=== PATIENT | female | born 1945 ===

== ENCOUNTER 2024-10-05 18:09 | Emergency (ER) | payer MEDICARE, SELFPAY ==
--- OUTSIDE RECORDS SUMMARY | 2024-10-05 18:13 | XMS_ITS | Encounter Summary ---
Author Organization [facility] Address [address] [place] [address] Care Team Providers Care Dot Net Architect Name Role Phone Jhonathan iKm MD Primary Care Provider Encounter Details Date Type Department Care Team (Late st Contact Info) Description 06/06/2007 Outpatient Historical [facility] [place] Internal Medicine [place] [address] [place] [address] Jhonathan Rendon MD [address] [place] [address] Social History Tobacco Use Types Packs/Day Years Used Date Smoking Tobacco: Never Assessed Comments No Sex and Gender Information Value Date Recorded Sex Assigned at Not on file Legal Sex Female 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
--- OUTSIDE RECORDS SUMMARY | 2024-10-05 18:13 | XMS_ITS | Encounter Summary ---
Author Organization [facility] Address [address] [place] [address] Care Team Providers Care Fagot Heater Name Role Phone Jhonathan Kim MD Primary Care Provider Encounter Details Date Type Department Care Team (Latest Contact Info) Description 06/14/2006 Outpatient [facility] - [facility] [address] [place] [phone] Jhonathan Rendon MD [address] [place] [address] Unspecified Venous (Peripheral) Insufficiency (Primary Dx) Social History Tobacco Use Types Packs/Day Years Used Date Smoking Tobacco: Never Assessed Comments Unknown Sex and Gender Information Value Date Recorded Sex Assigned at Not on file Legal Sex Female 3:30 AM TOBACCO SHAKER Gender Identity Not on file Sexual Orientation Not on file documented as of this encounter Plan of Treatment Not on file documented as of this encounter Visit Diagnoses Diagnosis Unspecified venous (peripheral) insufficiency- Primary documented in this encounter Additional Health Concerns Infection Onset Date Last Indicated Resolved Time R/O Respiratory 05/13/2024 05/13/2024 05/13/2024 3 :49 AM CDT documented as of this encounter Care Teams Fagot Heater Relationship Specialty [place] [address] [place] [id number] PCP - General Internal Medicine 02/18/17 07/02/24 documented as of this encounter
--- OUTSIDE RECORDS SUMMARY | 2024-10-05 18:13 | XMS_ITS | Encounter Summary ---
Author Organization [facility] Address [address] [place] [address] Care Team Providers Care Clinic Physician Director Name Role Phone Jhonathan Kim MD Primary Care Provider Encounter Details Date Type Department Care Team (Late st Contact Info) Description 07/13/1999 Outpatient Historical [facility] Internal Medicine [place] [address] [place] [address] Jhonathan Rendon MD [address] [place] [address] Social History Tobacco Use Types Packs/Day Years Used Date Smoking Tobacco: Never Assessed Comments Unknown Sex and Gender Information Value Date Recorded Sex Assigned at Not on file Legal Sex Female 3:30 AM BUN ICER Gender Identity Not on file Sexual Orientation Not on file documented as of this encounter Plan of Treatment Not on file documented as of this encounter Visit Diagnoses Not on filedocumented in this encounter Additional Health Concerns Infection Onset Date Last Indicated Resolved Time R/O Respiratory 05/13/2024 05/13/2024 05/13/2024 3 :49 AM CDT documented as of this encounter Care Teams Clinic Physician Director Relationship Specialty [place] [address] [place] [address] PCP - General Internal Medicine 02/18/17 07/02/24 documented as of this encounter
--- OUTSIDE RECORDS SUMMARY | 2024-10-05 18:13 | XMS_ITS | Encounter Summary ---
Author Organization [facility] Address [address] [place] [address] Care Team Providers Care Director Physical Therapy Name Role Phone Jhonathan Kim MD Primary Care Provider Encounter Details Date Type Department Care Team (Late st Contact Info) Description 07/03/2001 Outpatient Historical [facility] Internal Medicine [place] [address] [place] [address] Jhonathan Rendon MD [address] [place] [address] Social History Tobacco Use Types Packs/Day Years Used Date Smoking Tobacco: Never Assessed Comments Unknown Sex and Gender Information Value Date Recorded Sex Assigned at Not on file Legal Sex Female 3:30 AM DIRECTOR REGULATORY 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 Gender Identity Not on file Sexual Orientation Not on file documented as of this encounter Plan of Treatment Not on file documented as of this encounter Visit Diagnoses Not on filedocumented in this encounter Additional Health Concerns Infection Onset Date Last Indicated Resolved Time R/O Respiratory 05/13/2024 05/13/2024 05/13/2024 3 :49 AM CDT documented as of this encounter Care Teams Director Physical Therapy Relationship Specialty [place] [address] [place] [address] PCP - General Internal Medicine 02/18/17 07/02/24 documented as of this encounter
--- OUTSIDE RECORDS SUMMARY | 2024-10-05 18:13 | XMS_ITS | Encounter Summary ---
Author Organization [facility] Address [address] [place] [address] Care Team Providers Care Direct Support Staff Member Name Role Phone Jhonathan Kim MD Primary Care Provider Encounter Details Date Type Department Care Team (Late st Contact Info) Description 04/13/2006 Outpatient Historical [facility] Internal Medicine [place] [address] [place] [address] Jhonathan Rendon MD [address] [place] [address] Social History Tobacco Use Types Packs/Day Years Used Date Smoking Tobacco: Never Assessed Comments Unknown Sex and Gender Information Value Date Recorded Sex Assigned at Not on file Legal Sex Female 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 Gender Identity Not on file Sexual Orientation Not on file documented as of this encounter Plan of Treatment Not on file documented as of this encounter Visit Diagnoses Not on filedocumented in this encounter Additional Health Concerns Infection Onset Date Last Indicated Resolved Time R/O Respiratory 05/13/2024 05/13/2024 05/13/2024 3 :49 AM CDT documented as of this encounter Care Teams Direct Support Staff Member Relationship Specialty [place] [address] [address] [place] [address] PCP - General Internal Medicine 02/18/17 07/02/24 documented as of this encounter
--- OUTSIDE RECORDS SUMMARY | 2024-10-05 18:13 | XMS_ITS | Encounter Summary ---
Author Organization [facility] Address [address] [place] [address] Care Team Providers Care Parole Agent Name Role Phone Jhonathan Kim MD Primary Care Provider Encounter Details Date Type Department Care Team (Late st Contact Info) Description 04/13/2006 Outpatient Historical [facility] Internal Medicine [place] [address] [place] [address] Jhonathan Rendon MD [address] [place] [address] Social History Tobacco Use Types Packs/Day Years Used Date Smoking Tobacco: Never Assessed Comments Unknown Sex and Gender Information Value Date Recorded Sex Assigned at Not on file Legal Sex Female 3:30 AM 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 SHRIMP BOAT Gender Identity Not on file Sexual Orientation Not on file documented as of this encounter Plan of Treatment Not on file documented as of this encounter Visit Diagnoses Not on filedocumented in this encounter Additional Health Concerns Infection Onset Date Last Indicated Resolved Time R/O Respiratory 05/13/2024 05/13/2024 05/13/2024 3 :49 AM CDT documented as of this encounter Care Teams Parole Agent Relationship Specialty [place] [address] [place] [address] PCP - General Internal Medicine 02/18/17 07/02/24 documented as of this encounter
--- OUTSIDE RECORDS SUMMARY | 2024-10-05 18:13 | XMS_ITS | Encounter Summary ---
Author Organization [facility] Address [address] [place] [address] Care Team Providers Care Eye Physician Name Role Phone Jhonathan Kim MD Primary Care Provider Encounter Details Date Type Department Care Team (Late st Contact Info) Description 12/13/2001 Outpatient Historical [facility] [place] Internal Medicine [place] [address] [place] [address] Jhonathan Rendon MD [address] [place] [address] Social History Tobacco Use Types Packs/Day Years Used Date Smoking Tobacco: Never Assessed Comments Unknown Sex and Gender Information Value Date Recorded Sex Assigned at Not on file Legal Sex Female 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
--- OUTSIDE RECORDS SUMMARY | 2024-10-05 18:13 | XMS_ITS | Encounter Summary ---
Author Organization [facility] Address [address] [place] [address] Care Team Providers Care University Counselor Name Role Phone Jhonathan Kim MD Primary Care Provider Encounter Details Date Type Department Care Team (Late st Contact Info) Description 06/14/2006 Outpatient [facility] Hyper[facility]ic and W[facility] Treatment Center - [facility] [address] [place] [address] [place] [address] [place] [address] Social History Tobacco Use Types Packs/Day Years Used Date Smoking Tobacco: Never Assessed Comments Unknown Sex and Gender Information Value Date Recorded Sex Assigned at Not on file Legal Sex Female 3:30 AM 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 [place] [address] PCP - General Internal Medicine 02/18/17 07/02/24 documented as of this encounter
--- OUTSIDE RECORDS SUMMARY | 2024-10-05 18:13 | XMS_ITS | Encounter Summary ---
Author Organization [facility] Address [address] [place] [address] Care Team Providers Care Label Tacker Name Role Phone Jhonathan Kim MD Primary Care Provider Encounter Details Date Type Department Care Team (Late st Contact Info) Description 06/12/1999 Outpatient Historical [facility] Internal Medicine [place] [address] [place] [address] Jhonathan Rendon MD [address] [place] [address] Social History Tobacco Use Types Packs/Day Years Used Date Smoking Tobacco: Never Assessed Comments Unknown Sex and Gender Information Value Date Recorded Sex Assigned at Not on file Legal Sex Female 3: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
--- OUTSIDE RECORDS SUMMARY | 2024-10-05 18:13 | XMS_ITS | Encounter Summary ---
Author Organization [facility] Address [address] [place] [address] Care Team Providers Care Kettle Operator Name Role Phone Jhonathan Kim MD Primary Care Provider Reason for Visit * Reason Onset Date Comments Retirement (Skilled/Rehab) 05/25/2024 Encounter Details Date Type Department Care Team (Late st Contact Info) Description 05/25/2024 Telephone [facility] Urology [facility] [address] [facility] [address] [place] [address] [place] [address] [facility] [address] [place] [address] Retirement (Skilled/Rehab) Social History Tobacco Use Types Packs/Day Years Used Date Smoking Tobacco: Former Cigarettes 1.5 20 0 07/25/1977 - 07/25/1997 Smokeless Tobacco: Never Alcohol Use Standard Drinks/Week Comments No 0 (1 standard drink = 0.6 oz pure alcohol) recovering alcoholic, quit 1985 Financial Resource Strain Answer Date R ecorded How hard is it for you to pa y for the very basics like food, housing, medical care, and heating? Somewhat hard 12/16/2021 Food Insecurity Answer Date Recorded In the past 12 months, have you worried that your food would run out before you had money to buy more? Never true 12/16/2021 In the past 12 months, did y ou run out of food and didn't have money to buy more? Never true 12/16/2021 Transportation Needs Answer Date Record ed In the past 12 months, has l ack of transportation kept you from medical appointments or from getting medications? No 12/16/2021 Lack of Transportation (Non-Medical) Not on file 12/16/2021 Feeling Safe Answer Date Recorded Are you in a relationship wi th someone who hurts you emotionally and/or physically? 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 The nursing facility called and wanted to schedule an appointment. She has a surgery coming up. I didn't know if Dr Orona's wants to see herbefore her surgery or look at the chart and go from there. documented in this encounter Plan of Treatment Not on file documented as of this encounter Visit Diagnoses Not on filedocumented in this encounter Additional Health Concerns Assessment Noted Time PHQ-9 Depression Total Score: 2 04/25/20 11:43 AM CDT documented as of this encounter Care Teams Kettle Operator Relationship Specialty [place] [address] [place] [address] PCP - General Internal Medicine 02/18/17 07/02/24 documented as of this encounter
--- OUTSIDE RECORDS SUMMARY | 2024-10-05 18:13 | XMS_ITS | Encounter Summary ---
Author Organization [facility] Address [address] [place] [address] Care Team Providers Care Leaf Tinner Name Role Phone Jhonathan Kim MD Primary Care Provider Encounter Details Date Type Department Care Team (Late st Contact Info) Description 02/10/2001 Outpatient Historical [facility] Internal Medicine [place] [address] [place] [address] Jhonathan Rendon MD [address] [place] [address] Social History Tobacco Use Types Packs/Day Years Used Date Smoking Tobacco: Never Assessed Comments Unknown Sex and Gender Information Value Date Recorded Sex Assigned at Not on file Legal Sex Female 3:30 AM COBOL ENGINEER Gender Identity Not on file Sexual Orientation Not on file documented as of this encounter Plan of Treatment Not on file documented as of this encounter Visit Diagnoses Not on filedocumented in this encounter Additional Health Concerns Infection Onset Date Last Indicated Resolved Time R/O Respiratory 05/13/2024 05/13/2024 05/13/2024 3 :49 AM CDT documented as of this encounter Care Teams Leaf Tinner Relationship Specialty [place] [address] [place] [address] PCP - General Internal Medicine 02/18/17 07/02/24 documented as of this encounter
--- OUTSIDE RECORDS SUMMARY | 2024-10-05 18:13 | XMS_ITS | Encounter Summary ---
Author Organization [facility] Address [address] [place] [address] Care Team Providers Care Inspector Paper Products Name Role Phone Jhonathan Kim MD Primary Care Provider Encounter Details Date Type Department Care Team (Late st Contact Info) Description 12/25/1999 Outpatient Historical [facility] Internal Medicine [place] [address] [place] [address] Jhonathan Rendon MD [address] [place] [address] Social History Tobacco Use Types Packs/Day Years Used Date Smoking Tobacco: Never Assessed Comments Unknown Sex and Gender Information Value Date Recorded Sex Assigned at Not on file Legal Sex Female 3:30 AM UNION ORGANISER Gender Identity Not on file Sexual Orientation Not on file documented as of this encounter Plan of Treatment Not on file documented as of this encounter Visit Diagnoses Not on filedocumented in this encounter Additional Health Concerns Infection Onset Date Last Indicated Resolved Time R/O Respiratory 05/13/2024 05/13/2024 05/13/2024 3 :49 AM CDT documented as of this encounter Care Teams Inspector Paper Products Relationship Specialty [place] [address] [place] [address] PCP - General Internal Medicine 02/18/17 07/02/24 documented as of this encounter
--- OUTSIDE RECORDS SUMMARY | 2024-10-05 18:13 | XMS_ITS | Encounter Summary ---
Author Organization [facility] Address [address] [place] [address] Care Team Providers Care Dimensional Engineer Name Role Phone Jhonathan Kim MD Primary Care Provider Encounter Details Date Type Department Care Team (Late st Contact Info) Description 03/06/1999 Outpatient Historical [facility] Internal Medicine [place] [address] [place] [address] Jhonathan Rendon MD [address] [place] [address] Social History Tobacco Use Types Packs/Day Years Used Date Smoking Tobacco: Never Assessed Comments Unknown Sex and Gender Information Value Date Recorded Sex Assigned at Not on file Legal Sex Female 3:30 AM SYSTEM SPECIALIST Gender Identity Not on file Sexual Orientation Not on file documented as of this encounter Plan of Treatment Not on file documented as of this encounter Visit Diagnoses Not on filedocumented in this encounter Additional Health Concerns Infection Onset Date Last Indicated Resolved Time R/O Respiratory 05/13/2024 05/13/2024 05/13/2024 3 :49 AM CDT documented as of this encounter Care Teams Dimensional Engineer Relationship Specialty [place] [address] [place] [address] PCP - General Internal Medicine 02/18/17 07/02/24 documented as of this encounter
--- OUTSIDE RECORDS SUMMARY | 2024-10-05 18:13 | XMS_ITS | Encounter Summary ---
Author Organization [facility] Address [address] [place] [address] Care Team Providers Care Tile Installer Name Role Phone Jhonathan Kim MD Primary Care Provider Encounter Details Date Type Department Care Team (Late st Contact Info) Description 08/29/1998 Outpatient Historical [facility] Internal Medicine [place] [address] [place] [address] Jhonathan Rendon MD [address] [place] [address] Social History Tobacco Use Types Packs/Day Years Used Date Smoking Tobacco: Never Assessed Comments Unknown Sex and Gender Information Value Date Recorded Sex Assigned at Not on file Legal Sex Female 3: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
--- OUTSIDE RECORDS SUMMARY | 2024-10-05 18:13 | XMS_ITS | Encounter Summary ---
Author Organization [facility] Address [address] [place] [address] Care Team Providers Care Western Tack Assembly Line Worker Name Role Phone Jhonathan Kim MD Primary Care Provider Encounter Details Date Type Department Care Team (Late st Contact Info) Description 04/13/2005 Outpatient Historical [facility] Internal Medicine [place] [address] [place] [address] Jhonathan Rendon MD [address] [place] [address] Social History Tobacco Use Types Packs/Day Years Used Date Smoking Tobacco: Never Assessed Comments Unknown Sex and Gender Information Value Date Recorded Sex Assigned at Not on file Legal Sex Female 3:30 AM REFUGE MANAGER Gender Identity Not on file Sexual Orientation Not on file documented as of this encounter Plan of Treatment Not on file documented as of this encounter Visit Diagnoses Not on filedocumented in this encounter Additional Health Concerns Infection Onset Date Last Indicated Resolved Time R/O Respiratory 05/13/2024 05/13/2024 05/13/2024 3 :49 AM CDT documented as of this encounter Care Teams Western Tack Assembly Line Worker Relationship Specialty [place] [address] [place] [address] PCP - General Internal Medicine 02/18/17 07/02/24 documented as of this encounter
--- OUTSIDE RECORDS SUMMARY | 2024-10-05 18:13 | XMS_ITS | Encounter Summary ---
Author Organization [facility] Address [address] [place] [address] Care Team Providers Care Tractor Operator Laser Leveling Name Role Phone Jhonathan Kim MD Primary Care Provider Encounter Details Date Type Department Care Team (Late st Contact Info) Description 08/21/1999 Outpatient Historical [facility] Internal Medicine [place] [address] [place] [address] Jhonathan Rendon MD [address] [place] [address] Social History Tobacco Use Types Packs/Day Years Used Date Smoking Tobacco: Never Assessed Comments Unknown Sex and Gender Information Value Date Recorded Sex Assigned at Not on file Legal Sex Female 3:30 AM TREASURER 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 BANK Gender Identity Not on file Sexual Orientation Not on file documented as of this encounter Plan of Treatment Not on file documented as of this encounter Visit Diagnoses Not on filedocumented in this encounter Additional Health Concerns Infection Onset Date Last Indicated Resolved Time R/O Respiratory 05/13/2024 05/13/2024 05/13/2024 3 :49 AM CDT documented as of this encounter Care Teams Tractor Operator Laser Leveling Relationship Specialty [place] [address] [place] [address] PCP - General Internal Medicine 02/18/17 07/02/24 documented as of this encounter
--- OUTSIDE RECORDS SUMMARY | 2024-10-05 18:13 | XMS_ITS | Encounter Summary ---
Author Organization [facility] Address [address] [place] [address] Care Team Providers Care Structural Welder Name Role Phone Jhonathan Kim MD Primary Care Provider Encounter Details Date Type Department Care Team (Late st Contact Info) Description 04/25/2001 Outpatient Historical [facility] Internal Medicine [place] [address] [place] [address] Jhonathan Rendon MD [address] [place] [address] Social History Tobacco Use Types Packs/Day Years Used Date Smoking Tobacco: Never Assessed Comments Unknown Sex and Gender Information Value Date Recorded Sex Assigned at Not on file Legal Sex Female 3:30 AM RIB KNITTER Gender Identity Not on file Sexual Orientation Not on file documented as of this encounter Plan of Treatment Not on file documented as of this encounter Visit Diagnoses Not on filedocumented in this encounter Additional Health Concerns Infection Onset Date Last Indicated Resolved Time R/O Respiratory 05/13/2024 05/13/2024 05/13/2024 3 :49 AM CDT documented as of this encounter Care Teams Structural Welder Relationship Specialty [place] [address] [place] [address] PCP - General Internal Medicine 02/18/17 07/02/24 documented as of this encounter
--- OUTSIDE RECORDS SUMMARY | 2024-10-05 18:13 | XMS_ITS | Encounter Summary ---
Author Organization [facility] Address [address] [place] [address] Care Team Providers Care Storeroom Attendant Name Role Phone Jhonathan Kim MD Primary Care Provider Encounter Details Date Type Department Care Team (Latest Contact Info) Description 06/27/2006 Outpatient [facility] [address] [place] [address] Jhonathan Rendon MD [address] [place] [address] Unspecified Venous (Peripheral) Insufficiency (Primary Dx) Social History Tobacco Use Types Packs/Day Years Used Date Smoking Tobacco: Never Assessed Comments Unknown Sex and Gender Information Value Date Recorded Sex Assigned at Not on file Legal Sex Female 3:30 AM FARM 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
--- OUTSIDE RECORDS SUMMARY | 2024-10-05 18:13 | XMS_ITS | Encounter Summary ---
Author Organization [facility] Address [address] [place] [address] Care Team Providers Care Jailer/Training Officer Name Role Phone Jhonathan Kim MD Primary Care Provider Encounter Details Date Type Department Care Team (Late st Contact Info) Description 08/20/[address] [facility] Internal Medicine [place] [address] [place] [address] Jhonathan Rendon MD [address] [place] [address] Social History Tobacco Use Types Packs/Day Years Used Date Smoking Tobacco: Never Assessed Comments Unknown Sex and Gender Information Value Date Recorded Sex Assigned at Not on file Legal Sex Female 3:30 AM SUPERVISOR DRYING AND WINDING Gender Identity Not on file Sexual Orientation Not on file documented as of this encounter Plan of Treatment Not on file documented as of this encounter Visit Diagnoses Not on filedocumented in this encounter Additional Health Concerns Infection Onset Date Last Indicated Resolved Time R/O Respiratory 05/13/2024 05/13/2024 05/13/2024 3 :49 AM CDT documented as of this encounter Care Teams Jailer/Training Officer Relationship Specialty [place] [address] [place] [address] PCP - General Internal Medicine 02/18/17 07/02/24 documented as of this encounter
--- OUTSIDE RECORDS SUMMARY | 2024-10-05 18:13 | XMS_ITS | Encounter Summary ---
Author Organization [facility] Address [address] [place] [address] Care Team Providers Care Warehouse Supervisor Name Role Phone Jhonathan Kim MD Primary Care Provider Encounter Details Date Type Department Care Team (Latest Contact Info) Description 06/02/2006 Outpatient [facility] Hyper[facility]ic and Wound Treatment Center - [facility] [address] [place] [address] Jhonathan Rendon MD [address] [place] [address] Unspecified Venous (Peripheral) Insufficiency (Primary Dx) Social History Tobacco Use Types Packs/Day Years Used Date Smoking Tobacco: Never Assessed Comments Unknown Sex and Gender Information Value Date Recorded Sex Assigned at Not on file Legal Sex Female 3:30 AM GROCERY SACKER Gender Identity Not on file Sexual Orientation [...] documented as of this encounter Care Teams Warehouse Supervisor Relationship Specialty [place] [address] [place] [phone] PCP - General Internal Medicine 02/18/17 07/02/24 documented as of this encounter
--- OUTSIDE RECORDS SUMMARY | 2024-10-05 18:13 | XMS_ITS | Encounter Summary ---
Author Organization [facility] Address [address] [place] [address] Care Team Providers Care Real Estate Internship Name Role Phone Jhonathan Kim MD Primary Care Provider Encounter Details Date Type Department Care Team (Late st Contact Info) Description 07/02/2004 Outpatient Historical [facility] Internal Medicine [place] [address] [place] [address] Jhonathan Rendon MD [address] [place] [address] Social History Tobacco Use Types Packs/Day Years Used Date Smoking Tobacco: Never Assessed Comments Unknown Sex and Gender Information Value Date Recorded Sex Assigned at Not on file Legal Sex Female 3:30 AM WEBBING SEAMER POUND NET Gender Identity Not on file Sexual Orientation Not on file documented as of this encounter Plan of Treatment Not on file documented as of this encounter Visit Diagnoses Not on filedocumented in this encounter Additional Health Concerns Infection Onset Date Last Indicated Resolved Time R/O Respiratory 05/13/2024 05/13/2024 05/13/2024 3 :49 AM CDT documented as of this encounter Care Teams Real Estate Internship Relationship Specialty [place] [address] [place] [address] PCP - General Internal Medicine 02/18/17 07/02/24 documented as of this encounter
--- OUTSIDE RECORDS SUMMARY | 2024-10-05 18:13 | XMS_ITS | Encounter Summary ---
Author [facility] Address [address] [place] [address] Care Team Providers Care Physical Geographer Name Role Phone Jhonathan Kim MD Primary Care Provider Encounter Details Date Type Department Care Team (Latest Contact Info) Description 06/13/2007 Outpatient Historical [facility] Jhonathan Rendon MD [address] [place] [address] Unspecified Essential Hypertension (Primary Dx) Social History Tobacco Use Types Packs/Day Years Used Date Smoking Tobacco: Never Assessed Comments No Sex and Gender Information Value Date Recorded Sex Assigned at Not on file Legal Sex Female 3:30 AM OUTREACH REPRESENTATIVE Gender Identity Not on file Sexual Orientation Not on file documented as of this encounter Plan of Treatment Not on file documented as of this encounter Procedures Procedure Name Priority Date/Time Associated Diagnosis Comments LIPID PANEL Routine 06/13/2007 1:02 PM OUTREACH REPRESENTATIVE COMPREHENSIVE METABOLIC PANEL Routine 06/13/2007 1:02 PM OUTREACH REPRESENTATIVE documented in this encounter Results * (ABNORMAL) LIPID PANEL (06/13/2007 1:02 PM OUTREACH REPRESENTATIVE) CHOLESTEROL 190 100 - 199 mg/dL INTERFACE SYSTEM TRIGLYCERIDE 142 10 - 149 mg/dL INTERFACE SYSTEM HDL 54 40 - 59 mg/dL INTERFACE SYSTEM CHOL/HDL RATIO 3.5 2.0 - 5.0 INTER FACE SYSTEM LDL CALCULATED 108(H) <=99 mg/dL INTERFACE SYSTEM LIPID PANEL COMMENT See Below INTERFACE SYSTEM Comment: The adult ATP and pediatric NCEP classifications for lipids are available on the [facility] Intranet at: [email or web address] Select: Lab Policies and Procedures,Current Select: Lipid Panel Interpretation 06/13/2007 1:02 PM OUTREACH REPRESENTATIVE Jhonathan Rendon MD CHEMISTRY ORDERABLES Edited INTERFACE SYSTEM Refer to clinic/hospital department * (ABNORMAL) COMPREHENSIVE METABOLIC PANEL (06/13/2007 1:02 PM OUTREACH REPRESENTATIVE) GLUCOSE 112(H) 65 - 99 mg/dL INTERFACE SYSTEM CREATININE 0.81 0.51 - 0.95 mg/dL INTERFACE SYSTEM CALCIUM 9.9 8.4 - 10.2 mg/dL INTERFACE SYSTEM ALKALINE PHOSPHATASE 55 35 - 104 U/L INTERFACE SYSTEM AST 24 12 - 32 U/L INTERFACE SYSTEM ALT 20 0 - 31 U/L INTERFACE SYSTEM TOTAL PROTEIN 7.3 6.3 - 8.6 g/dL INTERFACE SYSTEM ALBUMIN 4.1 3.4 - 4.8 g/dL INTERFACE SYSTEM BILIRUBIN TOTAL 0.3 0.2 - 1.0 mg/dL INTERFACE SYSTEM BUN 31(H) 6 - 20 mg/dL INTERFACE SYSTEM SODIUM 140 135 - 145 mmol/L INTERFACE SYSTEM POTASSIUM 4.7 3.5 - 4.9 mmol/L INTERFACE SYSTEM CHLORIDE 104 96 - 108 mmol/L INTERFACE SYSTEM CO2 30 22 - 30 mmol/L INTERFACE SYSTEM GFR, >60 >=60 mL/min/1. 7 sq meter INTERFACE SYSTEM GFR >60 >=60 mL/min/1. 7 sq meter INTERFACE SYSTEM Comment: Estimated GFR rate interpretative information for both Americans and non- Americans is available on the [facility] Intranet at: [email or web address] Select: Lab Policies and Procedures Select: Reference Ranges - GFR 06/13/2007 1:02 PM OUTREACH REPRESENTATIVE Result [facility] Jhonathan Rendon MD CHEMISTRY ORDERABLES Edited INTERFACE SYSTEM Refer to clinic/hospital department documented in this encounter Visit Diagnoses Diagnosis Unspecified essential hypertension- Primary documented in this encounter Additional Health Concerns Infection Onset Date Last Indicated Resolved Time R/O Respiratory 05/13/2024 05/13/2024 05/13/2024 3 :49 AM CDT documented as of this encounter Care Teams Physical Geographer Relationship Specialty [place] [address] [place] [address] PCP - General Internal Medicine 02/18/17 07/02/24 documented as of this encounter
--- OUTSIDE RECORDS SUMMARY | 2024-10-05 18:13 | XMS_ITS | Encounter Summary ---
Author Organization [facility] Address [address] [place] [address] Care Team Providers Care Electrical Line Worker Name Role Phone Jhonathan Kim MD Primary Care Provider Encounter Details Date Type Department Care Team (Latest Contact Info) Description 06/09/2006 [facility] - [facility] [address] [place] [address] Jhonathan Rendon MD [address] [place] [address] Unspecified Venous (Peripheral) Insufficiency (Primary Dx) Social History Tobacco Use Types Packs/Day Years Used Date Smoking Tobacco: Never Assessed Comments Unknown Sex and Gender Information Value Date Recorded Sex Assigned at Not on file Legal Sex Female 3:30 AM MAMMA LOGIST Gender Identity Not on file Sexual Orientation [...] documented as of this encounter Care Teams Electrical Line Worker Relationship Specialty [place] [address] [place] [phone] PCP - General Internal Medicine 02/18/17 07/02/24 documented as of this encounter
--- OUTSIDE RECORDS SUMMARY | 2024-10-05 18:13 | XMS_ITS | Encounter Summary ---
Author Organization [facility] Address [address] [place] [address] Care Team Providers Care Strategic Intelligence Officer Name Role Phone Jhonathan Kim MD Primary Care Provider Encounter Details Date Type Department Care Team (Late st Contact Info) Description 06/09/2006 [facility] [address] [place] [address] Freddy Jordan MD [address] [place] [address] Social History Tobacco Use Types Packs/Day Years Used Date Smoking Tobacco: Never Assessed Comments Unknown Sex and Gender Information Value Date Recorded Sex Assigned at Not on file Legal Sex Female 3:30 AM SPONGE MAKER Gender Identity Not on file Sexual Orientation Not on file documented as of this encounter Plan of Treatment Not on file documented as of this encounter Visit Diagnoses Not on filedocumented in this encounter Additional Health Concerns Infection Onset Date Last Indicated Resolved Time R/O Respiratory 05/13/2024 05/13/2024 05/13/2024 3 :49 AM CDT documented as of this encounter Care Teams Strategic Intelligence Officer Relationship Specialty [place] [address] [place] [phone] PCP - General Internal Medicine 02/18/17 07/02/24 documented as of this encounter
--- OUTSIDE RECORDS SUMMARY | 2024-10-05 18:13 | XMS_ITS | Encounter Summary ---
Author Organization [facility] Address [address] [place] [address] Care Team Providers Care Quality Assurance Monitor Chassis Name Role Phone Jhonathan Kim MD Primary Care Provider Reason for Visit * Reason Onset Date Comments Kidney Stone 06/02/2023 Spoke W/ Erin rodriguez @ Dr. De La Cruz's exchange Encounter Details Date Type Department Care Team (Late st Contact Info) Description 06/02/2023 Telephone [facility] Admitting [address] [place] [address] [place] [address] [facility] [address] [place] [address] Kidney Stone (Spoke Jennifer/ Kimi @ Dr. De La Cruz's exchange) Social History Tobacco Use Types Packs/Day Years [...] of Transportation (Non-Medical) Not on file 12/16/2021 Food Insecurity Answer Date Recorded Social/Environmental Concerns No concerns Transportation Needs Answer Date Record ed Social/Environmental Concerns No concerns Housing Stability Answer Date Recorded Social/Environmental Concerns No concerns Utility Needs Answer Date Recorded Social/Environmental Concerns No concerns Comments No Sex and Gender Information Value Date Recorded Sex Assigned at Not on file Legal Sex Female 3:30 AM ACADEMIC COACH Gender Identity Not on file Sexual Orientation [...] 05/13/2024 05/13/2024 05/13/2024 3 :49 AM CDT Assessment Noted Time PHQ-9 Depression Total Score: 3 12/09/19 23 4:41 PM CDT documented as of this encounter Care Teams Quality Assurance Monitor Chassis Relationship Specialty [place] [address] [place] [address] PCP - General Internal Medicine 02/18/17 07/02/24 documented as of this encounter
--- OUTSIDE RECORDS SUMMARY | 2024-10-05 18:13 | XMS_ITS | Encounter Summary ---
Author Organization [facility] Address [address] [place] [address] Care Team Providers Care Locomotive Crane Operator Helper Name Role Phone Johnathan Kim MD Primary Care Provider Encounter Details Date Type Department Care Team (Late st Contact Info) Description 09/04/1998 Outpatient Historical [facility] Internal Medicine [place] [address] [place] [address] Jhonathan Rendon MD [address] [place] [address] Social History Tobacco Use Types Packs/Day Years Used Date Smoking Tobacco: Never Assessed Comments Unknown Sex and Gender Information Value Date Recorded Sex Assigned at Not on file Legal Sex Female 3:30 AM SILICA DRY PRESS HELPER Gender Identity Not on file Sexual Orientation Not on file documented as of this encounter Plan of Treatment Not on file documented as of this encounter Visit Diagnoses Not on filedocumented in this encounter Additional Health Concerns Infection Onset Date Last Indicated Resolved Time R/O Respiratory 05/13/2024 05/13/2024 05/13/2024 3 :49 AM CDT documented as of this encounter Care Teams Locomotive Crane Operator Helper Relationship Specialty [place] [address] [place] [address] PCP - General Internal Medicine 02/18/17 07/02/24 documented as of this encounter
--- OUTSIDE RECORDS SUMMARY | 2024-10-05 18:13 | XMS_ITS | Encounter Summary ---
Author Organization [facility] Address [address] [place] [address] Care Team Providers Care Network Systems Engineer Name Role Phone Jhonathan Kim MD Primary Care Provider Encounter Details Date Type Department Care Team (Late st Contact Info) Description 06/27/2006 Outpatient [facility] Hyperbaric and Wound Treatment Center - [facility] [address] [place] [address] [place] [address] [place] [address] Social History Tobacco Use Types Packs/Day Years Used Date Smoking Tobacco: Never Assessed Comments Unknown Sex and Gender Information Value Date Recorded Sex Assigned at Not on file Legal Sex Female 3:30 AM MILKING WORKER Gender Identity Not on file Sexual Orientation Not on file documented as of this encounter Plan of Treatment Not on file documented as of this encounter Visit Diagnoses Not on filedocumented in this encounter Additional Health Concerns Infection Onset Date Last Indicated Resolved Time R/O Respiratory 05/13/2024 05/13/2024 05/13/2024 3 :49 AM CDT documented as of this encounter Care Teams Network Systems Engineer Relationship Specialty [place] [address] [facility] [place] [address] PCP - General Internal Medicine 02/18/17 07/02/24 documented as of this encounter
--- OUTSIDE RECORDS SUMMARY | 2024-10-05 18:13 | XMS_ITS | Encounter Summary ---
Author Organization [facility] Address [address] [place] [address] Care Team Providers Care Semiconductors Wafer Breaker Name Role Phone Jhonathan Kim MD Primary Care Provider Encounter Details Date Type Department Care Team (Late st Contact Info) Description 10/17/2000 Outpatient Historical [facility] Internal Medicine [employer] [address] [place] [address] Jhonathan Rendon MD [address] [place] [address] Social History Tobacco Use Types Packs/Day Years Used Date Smoking Tobacco: Never Assessed Comments Unknown Sex and Gender Information Value Date Recorded Sex Assigned at Not on file Legal Sex Female 3:30 AM CIGARETTE ROLLER Gender Identity Not on file Sexual Orientation Not on file documented as of this encounter Plan of Treatment Not on file documented as of this encounter Visit Diagnoses Not on filedocumented in this encounter Additional Health Concerns Infection Onset Date Last Indicated Resolved Time R/O Respiratory 05/13/2024 05/13/2024 05/13/2024 3 :49 AM CDT documented as of this encounter Care Teams Semiconductors Wafer Breaker Relationship Specialty [place] [address] [place] [address] PCP - General Internal Medicine 02/18/17 07/02/24 documented as of this encounter
--- OUTSIDE RECORDS SUMMARY | 2024-10-05 18:13 | XMS_ITS | Encounter Summary ---
Author Organization [facility] Address [address] [place] [address] Care Team Providers Care Water Hydrant Installer Name Role Phone Jhonathan Kim MD Primary Care Provider Encounter Details Date Type Department Care Team (Late st Contact Info) Description 10/11/2005 Outpatient Historical [facility] Internal Medicine [place] [address] [place] [address] Jhonathan Rendon MD [address] [place] [address] Social History Tobacco Use Types Packs/Day Years Used Date Smoking Tobacco: Never Assessed Comments Unknown Sex and Gender Information Value Date Recorded Sex Assigned at Not on file Legal Sex Female 3:30 AM TRACK LAYING 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 Gender Identity Not on file Sexual Orientation Not on file documented as of this encounter Plan of Treatment Not on file documented as of this encounter Visit Diagnoses Not on filedocumented in this encounter Additional Health Concerns Infection Onset Date Last Indicated Resolved Time R/O Respiratory 05/13/2024 05/13/2024 05/13/2024 3 :49 AM CDT documented as of this encounter Care Teams Water Hydrant Installer Relationship Specialty [place] [address] [place] [address] PCP - General Internal Medicine 02/18/17 07/02/24 documented as of this encounter
--- OUTSIDE RECORDS SUMMARY | 2024-10-05 18:13 | XMS_ITS | Encounter Summary ---
Author Organization [facility] Address [address] [place] [address] Care Team Providers Care Jail Guard Name Role Phone Jhonathan Kim MD Primary Care Provider Encounter Details Date Type Department Care Team (Late st Contact Info) Description 12/20/2000 Outpatient Historical [facility] Internal Medicine [place] [address] [address] [place] [address] Jhonathan Rendon MD [address] [place] [address] Social History Tobacco Use Types Packs/Day Years Used Date Smoking Tobacco: Never Assessed Comments Unknown Sex and Gender Information Value Date Recorded Sex Assigned at Not on file Legal Sex Female 3:30 AM LITHARGE SUPERVISOR Gender Identity Not on file Sexual Orientation Not on file documented as of this encounter Plan of Treatment Not on file documented as of this encounter Visit Diagnoses Not on filedocumented in this encounter Additional Health Concerns Infection Onset Date Last Indicated Resolved Time R/O Respiratory 05/13/2024 05/13/2024 05/13/2024 3 :49 AM CDT documented as of this encounter Care Teams Jail Guard Relationship Specialty [place] [address] [place] [address] PCP - General Internal Medicine 02/18/17 07/02/24 documented as of this encounter
--- OUTSIDE RECORDS SUMMARY | 2024-10-05 18:13 | XMS_ITS | Encounter Summary ---
Author Organization [facility] Address [address] [place] [address] Care Team Providers Care Food Science Professor Name Role Phone Jhonathan Kim MD Primary Care Provider Encounter Details Date Type Department Care Team (Late st Contact Info) Description 06/02/2006 Outpatient [facility] [id number] [place] [phone] Noah Santos MD [address] [place] [phone] Social History Tobacco Use Types Packs/Day Years Used Date Smoking Tobacco: Never Assessed Comments Unknown Sex and Gender Information Value Date Recorded Sex Assigned at Not on file Legal Sex Female 3:30 AM MOTORCYCLE RACER Gender Identity Not on file Sexual Orientation Not on file documented as of this encounter Plan of Treatment Not on file documented as of this encounter Visit Diagnoses Not on filedocumented in this encounter Additional Health Concerns Infection Onset Date Last Indicated Resolved Time R/O Respiratory 05/13/2024 05/13/2024 05/13/2024 3 :49 AM CDT documented as of this encounter Care Teams Food Science Professor Relationship Specialty [place] [address] [place] [address] PCP - General Internal Medicine 02/18/17 07/02/24 documented as of this encounter
--- OUTSIDE RECORDS SUMMARY | 2024-10-05 18:13 | XMS_ITS | Encounter Summary ---
Author Organization [facility] Address [address] [place] [address] Care Team Providers Care Weapons Electrical Engineering Officer Name Role Phone Jhonathan Kim MD Primary Care Provider Encounter Details Date Type Department Care Team (Late st Contact Info) Description 06/06/2007 Outpatient Historical [facility]3] Internal Medicine [place] [address] [place] [address] Jhonathan Rendon MD [address] [place] [address] Social History Tobacco Use Types Packs/Day Years Used Date Smoking Tobacco: Never Assessed Comments No Sex and Gender Information Value Date Recorded Sex Assigned at Not on file Legal Sex Female 3:30 AM GUIDE EXCURSION Gender Identity Not on file Sexual Orientation Not on file documented as of this encounter Plan of Treatment Not on file documented as of this encounter Visit Diagnoses Not on filedocumented in this encounter Additional Health Concerns Infection Onset Date Last Indicated Resolved Time R/O Respiratory 05/13/2024 05/13/2024 05/13/2024 3 :49 AM CDT documented as of this encounter Care Teams Weapons Electrical Engineering Officer Relationship Specialty [place] [address] [place] [address] PCP - General Internal Medicine 02/18/17 07/02/24 documented as of this encounter
--- OUTSIDE RECORDS SUMMARY | 2024-10-05 18:13 | XMS_ITS | Encounter Summary ---
Author Organization [facility] Address [address] [place] [address] Care Team Providers Care Quality Control Manager Name Role Phone Jhonathan Kim MD Primary Care Provider Encounter Details Date Type Department Care Team (Late st Contact Info) Description 02/20/2001 Outpatient Historical [facility] Jhonathan Rendon MD [address] [place] [address] Sciatica (Primary Dx) Social History Tobacco Use Types Packs/Day Years Used Date Smoking Tobacco: Never Assessed Comments Unknown Sex and Gender Information Value Date Recorded Sex Assigned at Not on file Legal Sex Female 3:30 AM DATABASE ADMINISTRATION MANAGER Gender Identity Not on file Sexual Orientation Not on file documented as of this encounter Plan of Treatment Not on file documented as of this encounter Visit Diagnoses Diagnosis Sciatica- Primary documented in this encounter Additional Health Concerns Infection Onset Date Last Indicated Resolved Time R/O Respiratory 05/13/2024 05/13/2024 05/13/2024 3 :49 AM CDT documented as of this encounter Care Teams Quality Control Manager Relationship Specialty [place] [address] [place] [address] PCP - General Internal Medicine 02/18/17 07/02/24 documented as of this encounter
--- OUTSIDE RECORDS SUMMARY | 2024-10-05 18:13 | XMS_ITS | Encounter Summary ---
Author Organization [facility] Address [address] [place] [address] Care Team Providers Care Construction Laborer Name Role Phone Jhonathan Kim MD Primary Care Provider Encounter Details Date Type Department Care Team (Late st Contact Info) Description 07/16/2005 Outpatient Historical [facility] Internal Medicine [place] [address] [place] [address] Jhonathan Rendon MD [address] [place] [address] Social History Tobacco Use Types Packs/Day Years Used Date Smoking Tobacco: Never Assessed Comments Unknown Sex and Gender Information Value Date Recorded Sex Assigned at Not on file Legal Sex Female 3:30 AM DAYTIME BABYSITTER Gender Identity Not on file Sexual Orientation Not on file documented as of this encounter Plan of Treatment Not on file documented as of this encounter Visit Diagnoses Not on filedocumented in this encounter Additional Health Concerns Infection Onset Date Last Indicated Resolved Time R/O Respiratory 05/13/2024 05/13/2024 05/13/2024 3 :49 AM CDT documented as of this encounter Care Teams Construction Laborer Relationship Specialty [place] [address] [place] [address] PCP - General Internal Medicine 02/18/17 07/02/24 documented as of this encounter
--- OUTSIDE RECORDS SUMMARY | 2024-10-05 18:13 | XMS_ITS | Encounter Summary ---
Author Organization [facility] Address [address] [place] [address] Care Team Providers Care Neurosurgery Physician Name Role Phone Jhonathan Kim MD Primary Care Provider Encounter Details Date Type Department Care Team (Late st Contact Info) Description 10/31/2006 Outpatient Historical [facility] Internal Medicine [place] [address] [place] [address] Jhonathan Rendon MD [address] [place] [address] Social History Tobacco Use Types Packs/Day Years Used Date Smoking Tobacco: Never Assessed Comments Unknown Sex and Gender Information Value Date Recorded Sex Assigned at Not on file Legal Sex Female 3:30 AM TAPING FOREMAN Gender Identity Not on file Sexual Orientation Not on file documented as of this encounter Plan of Treatment Not on file documented as of this encounter Visit Diagnoses Not on filedocumented in this encounter Additional Health Concerns Infection Onset Date Last Indicated Resolved Time R/O Respiratory 05/13/2024 05/13/2024 05/13/2024 3 :49 AM CDT documented as of this encounter Care Teams Neurosurgery Physician Relationship Specialty [place] [address] [place] [address] PCP - General Internal Medicine 02/18/17 07/02/24 documented as of this encounter
--- OUTSIDE RECORDS SUMMARY | 2024-10-05 18:13 | XMS_ITS | Encounter Summary ---
Author Organization [facility] Address [address] [place] [address] Care Team Providers Care Genetic Physician Name Role Phone Jhonathan Kim MD Primary Care Provider Encounter Details Date Type Department Care Team (Latest Contact Info) Description 05/26/2006 Outpatient [facility] [address] [place] [phone] Jhonathan Rendon MD [address] [place] [address] Unspecified Venous (Peripheral) Insufficiency (Primary Dx) Social History Tobacco Use Types Packs/Day Years Used Date Smoking Tobacco: Never Assessed Comments Unknown Sex and Gender Information Value Date Recorded Sex Assigned at Not on file Legal Sex Female 3:30 AM DIRECTOR OF PLACEMENT Gender Identity Not on file Sexual Orientation [...] documented as of this encounter Care Teams Genetic Physician Relationship Specialty [place] [address] [place] [phone] PCP - General Internal Medicine 02/18/17 07/02/24 documented as of this encounter
--- OUTSIDE RECORDS SUMMARY | 2024-10-05 18:13 | XMS_ITS | Encounter Summary ---
Author Organization [facility] Address [address] [place] [address] Care Team Providers Care Emerging Technologies Director Name Role Phone Jhonathan Kim MD Primary Care Provider Encounter Details Date Type Department Care Team (Late st Contact Info) Description 07/02/2008 Outpatient Historical [facility] [place] [facility] Jhonathan Rendon MD [address] [place] [address] Impaired Fasting Glucose Social History Tobacco Use Types Packs/Day Years Used Date Smoking Tobacco: Former Cigarettes Q uit: 07/25/1997 Alcohol Use Standard Drinks/Week Comments Not Asked 0 (1 standard drink = 0.6 oz pur e alcohol) Comments No Sex and Gender Information Value Date Recorded Sex Assigned at Not on file Legal Sex Female 3:30 AM CORRESPONDENCE SPECIALIST Gender Identity Not on file Sexual Orientation Not on file documented as of this encounter Plan of Treatment Not on file documented as of this encounter Visit Diagnoses Diagnosis Impaired fasting glucose documented in this encounter Additional Health Concerns Infection Onset Date Last Indicated Resolved Time R/O Respiratory 05/13/2024 05/13/2024 05/13/2024 3 :49 AM CDT documented as of this encounter Care Teams Emerging Technologies Director Relationship Specialty [place] [address] [place] [address] PCP - General Internal Medicine 02/18/17 07/02/24 documented as of this encounter
--- OUTSIDE RECORDS SUMMARY | 2024-10-05 18:13 | XMS_ITS | Encounter Summary ---
Author Organization [facility] Address [address] [place] [address] Care Team Providers Care Video Production Coordinator Name Role Phone Jhonathan Kim MD Primary Care Provider Encounter Details Date Type Department Care Team (Late st Contact Info) Description 10/31/2006 Outpatient Historical [facility] Internal Medicine [place] [address] [place] [address] Jhonathan Rendon MD [address] [place] [address] Essential Hypertension, Benign (Primary Dx) Social History Tobacco Use Types Packs/Day Years Used Date Smoking Tobacco: Never Assessed Comments Unknown Sex and Gender Information Value Date Recorded Sex Assigned at Not on file Legal Sex Female 3:30 AM PORT ENGINEER Gender Identity Not on file Sexual Orientation Not on file documented as of this encounter Plan of Treatment Not on file documented as of this encounter Procedures Procedure Name Priority Date/Time Associated Diagnosis Comments ALT Routine 10/31/2006 11:02 AM CDT GLUCOSE FASTING Routine 10/31/2006 11:02 AM CDT LIPID PANEL Routine 10/31/2006 11:02 AM CDT documented in this encounter Results * (ABNORMAL) GLUCOSE FASTING (10/31/2006 11:02 AM CDT) GLUCOSE FASTING 108(H) 65 - 99 mg/dL INTERFACE SYSTEM 10/31/2006 11:0 2 AM CDT us Jhonathan Rendon MD CHEMISTRY ORDERABLES Edited Performing Organization Address City/State/[facility] Co de Phone Number INTERFACE SYSTEM Refer to clinic/hospital department * ALT (10/31/2006 11:02 AM CDT) ALT 22 0 - 31 U/L INTERFACE SYSTEM 10/31/2006 11:0 2 AM CDT us Jhonathan Rendon MD CHEMISTRY ORDERABLES Edited Performing Organization Address [facility] Co de Phone Number INTERFACE SYSTEM Refer to clinic/hospital department * (ABNORMAL) LIPID PANEL (10/31/2006 11:02 AM CDT) CHOLESTEROL 172 100 - 199 mg/dL INTERFACE SYSTEM TRIGLYCERIDE 158(H) 10 - 149 mg/dL INTERFACE SYSTEM HDL 54 40 - 59 mg/dL INTERFACE SYSTEM CHOL/HDL RATIO 3.2 2.0 - 5.0 INTER FACE SYSTEM LDL CALCULATED 86 <=99 mg/dL INTERFACE SYSTEM LIPID PANEL COMMENT See Below INTERFACE SYSTEM Comment: The adult ATP and pediatric NCEP classifications for lipids are available on the [facility] at: [email or web address] Select: Lab Policies and Procedures Select: Reference Ranges - Lipids 10/31/2006 11:0 2 AM CDT us Jhonathan Rendon MD CHEMISTRY ORDERABLES Edited Performing Organization Address City/[facility] Co de Phone Number INTERFACE SYSTEM Refer to clinic/hospital department documented in this encounter Visit Diagnoses Diagnosis Essential hypertension, benign- Primary documented in this encounter Additional Health Concerns Infection Onset Date Last Indicated Resolved Time R/O Respiratory 05/13/2024 05/13/2024 05/13/2024 3 :49 AM CDT documented as of this encounter Care Teams Video Production Coordinator Relationship Specialty [place] [address] [place] [address] PCP - General Internal Medicine 02/18/17 07/02/24 documented as of this encounter
--- OUTSIDE RECORDS SUMMARY | 2024-10-05 18:13 | XMS_ITS | Encounter Summary ---
Author Organization [facility] Address [address] [place] [address] Care Team Providers Care Petroleum Products District Supervisor Name Role Phone Jhonathan Kim MD Primary Care Provider Encounter Details Date Type Department Care Team (Late st Contact Info) Description 12/14/2002 Outpatient Historical [facility] Internal Medicine [place] [address] [place] [address] Jhonathan Rendon MD [address] [place] [address] Social History Tobacco Use Types Packs/Day Years Used Date Smoking Tobacco: Never Assessed Comments Unknown Sex and Gender Information Value Date Recorded Sex Assigned at Not on file Legal Sex Female 3:30 AM CLIP AND HANGER ATTACHER Gender Identity Not on file Sexual Orientation Not on file documented as of this encounter Plan of Treatment Not on file documented as of this encounter Visit Diagnoses Not on filedocumented in this encounter Additional Health Concerns Infection Onset Date Last Indicated Resolved Time R/O Respiratory 05/13/2024 05/13/2024 05/13/2024 3 :49 AM CDT documented as of this encounter Care Teams Petroleum Products District Supervisor Relationship Specialty [place] [address] [place] [address] PCP - General Internal Medicine 02/18/17 07/02/24 documented as of this encounter
--- OUTSIDE RECORDS SUMMARY | 2024-10-05 18:13 | XMS_ITS | Encounter Summary ---
Author Organization [facility] Address [address] [place] [address] Care Team Providers Care Sap Bi Developer Name Role Phone Jhonathan Kim MD Primary Care Provider Encounter Details Date Type Department Care Team (Late st Contact Info) Description 03/23/2004 Outpatient Historical [facility] Internal Medicine [place] [address] [place] [address] Jhonathan Rendon MD [address] [place] [address] Social History Tobacco Use Types Packs/Day Years Used Date Smoking Tobacco: Never Assessed Comments Unknown Sex and Gender Information Value Date Recorded Sex Assigned at Not on file Legal Sex Female 3:30 AM BLADE OPERATOR Gender Identity Not on file Sexual Orientation Not on file documented as of this encounter Plan of Treatment Not on file documented as of this encounter Visit Diagnoses Not on filedocumented in this encounter Additional Health Concerns Infection Onset Date Last Indicated Resolved Time R/O Respiratory 05/13/2024 05/13/2024 05/13/2024 3 :49 AM CDT documented as of this encounter Care Teams Sap Bi Developer Relationship Specialty [place] [address] [place] [address] PCP - General Internal Medicine 02/18/17 07/02/24 documented as of this encounter
--- OUTSIDE RECORDS SUMMARY | 2024-10-05 18:13 | XMS_ITS | Encounter Summary ---
Author Organization [facility] Address [address] [place] [address] Care Team Providers Care Genetic Scientist Name Role Phone Jhonathan Kim MD Primary Care Provider Encounter Details Date Type Department Care Team (Late st Contact Info) Description 10/28/2000 Outpatient Historical [facility] Internal Medicine [place] [address] [place] [address] Jhonathan Rendon MD [address] [place] [address] Social History Tobacco Use Types Packs/Day Years Used Date Smoking Tobacco: Never Assessed Comments Unknown Sex and Gender Information Value Date Recorded Sex Assigned at Not on file Legal Sex Female 3:30 AM FOUR SLIDE 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 Gender Identity Not on file Sexual Orientation Not on file documented as of this encounter Plan of Treatment Not on file documented as of this encounter Visit Diagnoses Not on filedocumented in this encounter Additional Health Concerns Infection Onset Date Last Indicated Resolved Time R/O Respiratory 05/13/2024 05/13/2024 05/13/2024 3 :49 AM CDT documented as of this encounter Care Teams Genetic Scientist Relationship Specialty [place] [address] [place] [address] PCP - General Internal Medicine 02/18/17 07/02/24 documented as of this encounter
--- OUTSIDE RECORDS SUMMARY | 2024-10-05 18:13 | XMS_ITS | Encounter Summary ---
Author Organization [facility] Address [address] [place] [address] Care Team Providers Care Power Plant Assistant Name Role Phone Jhonathan Kim MD Primary Care Provider Encounter Details Date Type Department Care Team (Late st Contact Info) Description 01/03/2002 Outpatient Historical [facility] Sarahy Hernandez MD [address] [facility] [address] [place] [address] ESOPHAGEAL REFLUX (Primary Dx) Social History Tobacco Use Types Packs/Day Years Used Date Smoking Tobacco: Never Assessed Comments Unknown Sex and Gender Information Value Date Recorded Sex Assigned at Not on file Legal Sex Female 3:30 AM CONCRETE CRUSHER LOADER OPERATOR Gender Identity Not on file Sexual Orientation Not on file documented as of this encounter Plan of Treatment Not on file documented as of this encounter Visit Diagnoses Diagnosis Esophageal reflux- Primary documented in this encounter Additional Health Concerns Infection Onset Date Last Indicated Resolved Time R/O Respiratory 05/13/2024 05/13/2024 05/13/2024 3 :49 AM CDT documented as of this encounter Care Teams Power Plant Assistant Relationship Specialty [place] [address] [place] [address] PCP - General Internal Medicine 02/18/17 07/02/24 documented as of this encounter
--- OUTSIDE RECORDS SUMMARY | 2024-10-05 18:13 | XMS_ITS | Encounter Summary ---
Author Organization [facility] Address [address] [place] [address] Care Team Providers Care Veneer Sample Maker Name Role Phone Jhonathan Kim MD Primary Care Provider Encounter Details Date Type Department Care Team (Late st Contact Info) Description 04/21/[address] [facility] Internal Medicine [place] [address] [place] [address] Jhonathan Rendon MD [address] [place] [address] Social History Tobacco Use Types Packs/Day Years Used Date Smoking Tobacco: Never Assessed Comments No Sex and Gender Information Value Date Recorded Sex Assigned at Not on file Legal Sex Female 3:30 AM FILM INSPECTOR Gender Identity Not on file Sexual Orientation Not on file documented as of this encounter Plan of Treatment Not on file documented as of this encounter Visit Diagnoses Not on filedocumented in this encounter Additional Health Concerns Infection Onset Date Last Indicated Resolved Time R/O Respiratory 05/13/2024 05/13/2024 05/13/2024 3 :49 AM CDT documented as of this encounter Care Teams Veneer Sample Maker Relationship Specialty [place] [address] [place] [address] PCP - General Internal Medicine 02/18/17 07/02/24 documented as of this encounter
--- OUTSIDE RECORDS SUMMARY | 2024-10-05 18:13 | XMS_ITS | Encounter Summary ---
Author Organization [email or web address] Address [address] [place] [address] Care Team Providers Care Nurse Navigator Name Role Phone Jhonathan Kim MD Primary Care Provider Encounter Details Date Type Department Care Team (Latest Contact Info) Description 12/06/2000 Outpatient Historical [facility] Jhonathan Rendon MD [address] [place] [address] Other dyspnea and respiratory abnormality (Primary Dx) Social History Tobacco Use Types Packs/Day Years Used Date Smoking Tobacco: Never Assessed Comments Unknown Sex and Gender Information Value Date Recorded Sex Assigned at Not on file Legal Sex Female 3:30 AM CYBER SECURITY MANAGER Gender Identity Not on file Sexual Orientation Not on file documented as of this encounter Plan of Treatment Not on file documented as of this encounter Visit Diagnoses Diagnosis Other dyspnea and respiratory abnormality- Primary documented in this encounter Additional Health Concerns Infection Onset Date Last Indicated Resolved Time R/O Respiratory 05/13/2024 05/13/2024 05/13/2024 3 :49 AM CDT documented as of this encounter Care Teams Nurse Navigator Relationship Specialty [place] [address] [place] [phone] PCP - General Internal Medicine 02/18/17 07/02/24 documented as of this encounter
--- OUTSIDE RECORDS SUMMARY | 2024-10-05 18:13 | XMS_ITS | Encounter Summary ---
Author Organization [facility] Address [address] [place] [address] Care Team Providers Care Washing And Screening Plant Supervisor Name Role Phone Jhonathan Kim MD Primary Care Provider Encounter Details Date Type Department Care Team (Late st Contact Info) Description 01/11/[address] [facility] Internal Medicine [place] [address] [place] [address] Jhonathan Rendon MD [address] [place] [address] Social History Tobacco Use Types Packs/Day Years Used Date Smoking Tobacco: Never Assessed Comments Unknown Sex and Gender Information Value Date Recorded Sex Assigned at Not on file Legal Sex Female 3:30 AM PAINTER AND BODY MECHANIC APPRENTICE Gender Identity Not on file Sexual Orientation Not on file documented as of this encounter Plan of Treatment Not on file documented as of this encounter Visit Diagnoses Not on filedocumented in this encounter Additional Health Concerns Infection Onset Date Last Indicated Resolved Time R/O Respiratory 05/13/2024 05/13/2024 05/13/2024 3 :49 AM CDT documented as of this encounter Care Teams Washing And Screening Plant Supervisor Relationship Specialty [place] [address] [place] [address] PCP - General Internal Medicine 02/18/17 07/02/24 documented as of this encounter
--- OUTSIDE RECORDS SUMMARY | 2024-10-05 18:13 | XMS_ITS | Encounter Summary ---
Author Organization [facility] Address [address] [place] [address] Care Team Providers Care Barrel Brander Name Role Phone Jhonathan Kim MD Primary Care Provider Encounter Details Date Type Department Care Team (Late st Contact Info) Description 06/15/2002 Outpatient Historical [facility] Internal Medicine [place] [address] [place] [address] Jhonathan Rendon MD [address] [place] [address] Social History Tobacco Use Types Packs/Day Years Used Date Smoking Tobacco: Never Assessed Comments Unknown Sex and Gender Information Value Date Recorded Sex Assigned at Not on file Legal Sex Female 3:30 AM SUPERVISOR DITCHING Gender Identity Not on file Sexual Orientation Not on file documented as of this encounter Plan of Treatment Not on file documented as of this encounter Visit Diagnoses Not on filedocumented in this encounter Additional Health Concerns Infection Onset Date Last Indicated Resolved Time R/O Respiratory 05/13/2024 05/13/2024 05/13/2024 3 :49 AM CDT documented as of this encounter Care Teams Barrel Brander Relationship Specialty [place] [address] [place] [address] PCP - General Internal Medicine 02/18/17 07/02/24 documented as of this encounter
--- OUTSIDE RECORDS SUMMARY | 2024-10-05 18:13 | XMS_ITS | Encounter Summary ---
Author Organization [facility] Address [address] [place] [address] Care Team Providers Care Roll On Man Name Role Phone Jhonathan Kim MD Primary Care Provider Encounter Details Date Type Department Care Team (Late st Contact Info) Description 08/08/2000 Outpatient Historical [facility] Internal Medicine [place] [address] [place] [address] Jhonathan Rendon MD [address] [place] [address] Social History Tobacco Use Types Packs/Day Years Used Date Smoking Tobacco: Never Assessed Comments Unknown Sex and Gender Information Value Date Recorded Sex Assigned at Not on file Legal Sex Female 3:30 AM FUR POLISHER Gender Identity Not on file Sexual Orientation Not on file documented as of this encounter Plan of Treatment Not on file documented as of this encounter Visit Diagnoses Not on filedocumented in this encounter Additional Health Concerns Infection Onset Date Last Indicated Resolved Time R/O Respiratory 05/13/2024 05/13/2024 05/13/2024 3 :49 AM CDT documented as of this encounter Care Teams Roll On Man Relationship Specialty [place] [address] [place] [address] PCP - General Internal Medicine 02/18/17 07/02/24 documented as of this encounter
--- OUTSIDE RECORDS SUMMARY | 2024-10-05 18:13 | XMS_ITS | Encounter Summary ---
Author Organization [employer] Address [address] [place] [address] Care Team Providers Care Undertaker Assistant Name Role Phone Jhonathan Kim MD Primary Care Provider Encounter Details Date Type Department Care Team (Late st Contact Info) Description 07/06/2002 Outpatient Historical [facility] Jhonathan Rendon MD [address] [place] [address] MENOPAUSAL DISORDER NEC (Primary Dx) Social History Tobacco Use Types Packs/Day Years Used Date Smoking Tobacco: Never Assessed Comments Unknown Sex and Gender Information Value Date Recorded Sex Assigned at Not on file Legal Sex Female 3:30 AM WAYBILL CLERK Gender Identity Not on file Sexual Orientation Not on file documented as of this encounter Plan of Treatment Not on file documented as of this encounter Visit Diagnoses Diagnosis Other specified menopausal and postmenopausal disorder- Primary documented in this encounter Additional Health Concerns Infection Onset Date Last Indicated Resolved Time R/O Respiratory 05/13/2024 05/13/2024 05/13/2024 3 :49 AM CDT documented as of this encounter Care Teams Undertaker Assistant Relationship Specialty [place] [address] [place] [id number] PCP - General Internal Medicine 02/18/17 07/02/24 documented as of this encounter
--- OUTSIDE RECORDS SUMMARY | 2024-10-05 18:13 | XMS_ITS | Encounter Summary ---
Author Organization [facility] Address [address] [place] [address] Care Team Providers Care Rounding Machine Tender Name Role Phone Jhonathan Kim MD Primary Care Provider Encounter Details Date Type Department Care Team (Late st Contact Info) Description 08/31/2005 Outpatient Historical [facility] Internal Medicine [place] [address] [place] [address] Jhonathan Rendon MD [address] [place] [address] Social History Tobacco Use Types Packs/Day Years Used Date Smoking Tobacco: Never Assessed Comments Unknown Sex and Gender Information Value Date Recorded Sex Assigned at Not on file Legal Sex Female 3:30 AM MOTION PICTURE PRINTER Gender Identity Not on file Sexual Orientation Not on file documented as of this encounter Plan of Treatment Not on file documented as of this encounter Visit Diagnoses Not on filedocumented in this encounter Additional Health Concerns Infection Onset Date Last Indicated Resolved Time R/O Respiratory 05/13/2024 05/13/2024 05/13/2024 3 :49 AM CDT documented as of this encounter Care Teams Rounding Machine Tender Relationship Specialty [place] [address] [place] [address] PCP - General Internal Medicine 02/18/17 07/02/24 documented as of this encounter
--- OUTSIDE RECORDS SUMMARY | 2024-10-05 18:13 | XMS_ITS | Encounter Summary ---
Author Organization [facility] Address [address] [place] [address] Care Team Providers Care Military Exchange Wireless Manager Name Role Phone Jhonathan Kim MD Primary Care Provider Encounter Details Date Type Department Care Team (Late st Contact Info) Description 11/29/2000 Outpatient Historical [facility] Internal Medicine [place] [address] [place] [address] Jhonathan Rendon MD [address] [place] [address] Social History Tobacco Use Types Packs/Day Years Used Date Smoking Tobacco: Never Assessed Comments Unknown Sex and Gender Information Value Date Recorded Sex Assigned at Not on file Legal Sex Female 3:30 AM MANAGER EQUIPMENT Gender Identity Not on file Sexual Orientation Not on file documented as of this encounter Plan of Treatment Not on file documented as of this encounter Visit Diagnoses Not on filedocumented in this encounter Additional Health Concerns Infection Onset Date Last Indicated Resolved Time R/O Respiratory 05/13/2024 05/13/2024 05/13/2024 3 :49 AM CDT documented as of this encounter Care Teams Military Exchange Wireless Manager Relationship Specialty [place] [address] [place] [address] PCP - General Internal Medicine 02/18/17 07/02/24 documented as of this encounter
--- OUTSIDE RECORDS SUMMARY | 2024-10-05 18:13 | XMS_ITS | Encounter Summary ---
Author Organization [facility] Address [address] [place] [address] Care Team Providers Care Cardiac Rehab Nurse Name Role Phone Jhonathan Kim MD Primary Care Provider Encounter Details Date Type Department Care Team (Late st Contact Info) Description 02/12/2004 Outpatient Historical [facility] Internal Medicine [place] [address] [place] [address] Jhonathan Rendon MD [address] [place] [address] Social History Tobacco Use Types Packs/Day Years Used Date Smoking Tobacco: Never Assessed Comments Unknown Sex and Gender Information Value Date Recorded Sex Assigned at Not on file Legal Sex Female 3:30 AM INSTRUMENTATION CHEMIST Gender Identity Not on file Sexual Orientation Not on file documented as of this encounter Plan of Treatment Not on file documented as of this encounter Visit Diagnoses Not on filedocumented in this encounter Additional Health Concerns Infection Onset Date Last Indicated Resolved Time R/O Respiratory 05/13/2024 05/13/2024 05/13/2024 3 :49 AM CDT documented as of this encounter Care Teams Cardiac Rehab Nurse Relationship Specialty [place] [address] [place] [address] PCP - General Internal Medicine 02/18/17 07/02/24 documented as of this encounter
--- OUTSIDE RECORDS SUMMARY | 2024-10-05 18:13 | XMS_ITS | Encounter Summary ---
Author Organization [facility] Address 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 Gender Identity Not on file Sexual Orientation Not on file documented as of this encounter Plan of Treatment Not on file documented as of this encounter Visit Diagnoses Not on filedocumented in this encounter Additional Health Concerns Infection Onset Date Last Indicated Resolved Time R/O Respiratory 05/13/2024 05/13/2024 05/13/2024 3 :49 AM CDT documented as of this encounter Care Teams Nut Dehydrator Operator Relationship Specialty [place] [address] [place] [address] PCP - General Internal Medicine 02/18/17 07/02/24 documented as of this encounter
--- OUTSIDE RECORDS SUMMARY | 2024-10-05 18:13 | XMS_ITS | Encounter Summary ---
Author Organization [facility] Address [address] [place] [address] Care Team Providers Care Web Weaver Name Role Phone Jhonathan Kim MD Primary Care Provider Encounter Details Date Type Department Care Team (Late st Contact Info) Description 07/15/2008 Outpatient Historical [facility] Jhonathan Rendon MD [address] [place] [address] Hypercalcemia Social History Tobacco Use Types Packs/Day Years Used Date Smoking Tobacco: Former Cigarettes Q uit: 07/25/1997 Alcohol Use Standard Drinks/Week Comments Not Asked 0 (1 standard drink = 0.6 oz pur e alcohol) Comments No Sex and Gender Information Value Date Recorded Sex Assigned at Not on file Legal Sex Female 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
--- OUTSIDE RECORDS SUMMARY | 2024-10-05 18:13 | XMS_ITS | Encounter Summary ---
Author Organization [facility] Address 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 Gender Identity Not on file Sexual Orientation Not on file documented as of this encounter Plan of Treatment Not on file documented as of this encounter Visit Diagnoses Diagnosis Pain in joint, lower leg- Primary documented in this encounter Additional Health Concerns Infection Onset Date Last Indicated Resolved Time R/O Respiratory 05/13/2024 05/13/2024 05/13/2024 3 :49 AM CDT documented as of this encounter Care Teams Internet Sales Consultant Relationship Specialty [place] [address] [facility] [place] [address] PCP - General Internal Medicine 02/18/17 07/02/24 documented as of this encounter
--- OUTSIDE RECORDS SUMMARY | 2024-10-05 18:13 | XMS_ITS | Encounter Summary ---
Author Organization [facility] Address [address] [place] [address] Care Team Providers Care Central Service Supply Distributor Name Role Phone Jhonathan Kim MD Primary Care Provider Encounter Details Date Type Department Care Team (Late st Contact Info) Description 04/13/2006 Outpatient Historical [facility] Internal Medicine [place] [address] [place] [address] Jhonathan Rendon MD [address] [place] [address] Essential Hypertension, Benign (Primary Dx) Social History Tobacco Use Types Packs/Day Years Used Date Smoking Tobacco: Never Assessed Comments Unknown Sex and Gender Information Value Date Recorded Sex Assigned at Not on file 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 Gender Identity Not on file Sexual Orientation Not on file documented as of this encounter Plan of Treatment Not on file documented as of this encounter Procedures Procedure Name Priority Date/Time Associated Diagnosis Comments CBC WITHOUT DIFFERENTIAL Routine 04/13/2006 11:34 AM CDT PTH INTACT Routine 04/13/2006 11:34 AM CDT LIPID PANEL Routine 04/13/2006 11:34 AM CDT documented in this encounter Results * (ABNORMAL) PTH INTACT (04/13/2006 11:34 AM CDT) PTH INTACT 121(H) 15 - 65 pg/mL INTERFACE SYSTEM CALCIUM 10.1 8.4 - 10.2 mg/dL INTERFACE SYSTEM 04/13/2006 11:3 4 AM CDT Jhonathan Rendon MD CHEMISTRY ORDERABLES Final Re sult Performing Organization Address [facility] de Phone Number INTERFACE SYSTEM Refer to clinic/hospital department * (ABNORMAL) CBC WITHOUT DIFFERENTIAL (04/13/2006 11:34 AM CDT) WBC 5.8 4.0 - 9.8 K/uL INTERFACE SYSTEM RBC 4.46 3.90 - 4.90 M/uL INTERFACE SYSTEM HEMOGLOBIN 13.1 11.8 - 14.8 g/dL INTERFACE SYSTEM HEMATOCRIT 41.3 35.5 - 44.0 % INTERFACE SYSTEM MCV 92.6 82.0 - 99.0 fL INTERFACE SYSTEM MCH 29.4 27.2 - 32.6 pg INTERFACE SYSTEM MCHC 31.7 31.5 - 35.5 % INTERFACE SYSTEM RDW 14.5 11.5 - 14.5 % INTERFACE SYSTEM RDW-STDEV 49.1(H) 37.1 - 48.7 fL INTERFACE SYSTEM PLATELETS 168 140 - 350 K/uL INTERFACE SYSTEM MPV 13.4(H) 9.3 - 12.4 fL INTERFACE SYSTEM 04/13/2006 11:3 4 AM CDT us Jhonathan Rendon MD HEMATOLOGY ORDERABLES Final R esult Performing Organization Address [facility] de Phone Number INTERFACE SYSTEM Refer to clinic/hospital department * (ABNORMAL) LIPID PANEL (04/13/2006 11:34 AM CDT) CHOLESTEROL 204(H) 100 - 199 mg/dL INTERFACE SYSTEM TRIGLYCERIDE 201(H) 10 - 149 mg/dL INTERFACE SYSTEM HDL 50 40 - 59 mg/dL INTERFACE SYSTEM CHOL/HDL RATIO 4.1 2.0 - 5.0 INTER FACE SYSTEM LDL CALCULATED 114(H) <=99 mg/dL INTERFACE SYSTEM LIPID PANEL COMMENT See Below INTERFACE SYSTEM Comment: The adult ATP and pediatric NCEP classifications for lipids are available on the [facility] Intranet at: [email or web address] Select: Lab Policies and Procedures Select: Reference Ranges - Lipids 04/13/2006 11:3 4 AM CDT us Jhonathan Rendon MD CHEMISTRY ORDERABLES Final Re sult INTERFACE SYSTEM Refer to clinic/hospital department documented in this encounter Visit Diagnoses Diagnosis Essential hypertension, benign- Primary documented in this encounter Additional Health Concerns Infection Onset Date Last Indicated Resolved Time R/O Respiratory 05/13/2024 05/13/2024 05/13/2024 3 :49 AM CDT documented as of this encounter Care Teams Central Service Supply Distributor Relationship Specialty [place] [address] [place] [address] PCP - General Internal Medicine 02/18/17 07/02/24 documented as of this encounter
--- OUTSIDE RECORDS SUMMARY | 2024-10-05 18:13 | XMS_ITS | Encounter Summary ---
Author Organization [facility] Address [address] [place] [address] Care Team Providers Care It Security Engineer Name Role Phone Jhonathan Kim MD Primary Care Provider Encounter Details Date Type Department Care Team (Late st Contact Info) Description 10/03/1998 Outpatient Historical [facility] Internal Medicine [place] [address] [place] [address] Jhonathan Rendon MD [address] [place] [address] Social History Tobacco Use Types Packs/Day Years Used Date Smoking Tobacco: Never Assessed Comments Unknown Sex and Gender Information Value Date Recorded Sex Assigned at Not on file Legal Sex Female 3:30 AM 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 LITTLE 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
--- OUTSIDE RECORDS SUMMARY | 2024-10-05 18:13 | XMS_ITS | Encounter Summary ---
Author Organization [facility] Address [address] [place] [address] Care Team Providers Care Tread Booker Name Role Phone Jhonathan Kim MD Primary Care Provider Encounter Details Date Type Department Care Team (Late st Contact Info) Description 04/17/2007 Outpatient Historical [facility] Jhonathan Silverman MD [address] [place] [address] Er, Authorized P NO ADDRESS ON FILE Cellulitis and Abscess of Leg, except Foot (Primary Dx) Social History Tobacco Use Types Packs/Day Years Used Date Smoking Tobacco: Never Assessed Comments Unknown Sex and Gender Information Value Date Recorded Sex Assigned at Not on file Legal 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 Gender Identity Not on file Sexual Orientation Not on file documented as of this encounter Plan of Treatment Not on file documented as of this encounter Procedures Procedure Name Priority Date/Time Associated Diagnosis Comments POC GLUCOSE Routine 04/17/2007 5:23 PM CDT documented in this encounter Results * POC GLUCOSE (04/17/2007 5:23 PM CDT) COMMENT, GLU POC Notified RN INTERFACE SYSTEM COMMENT 3, GLU POC Notified MD INTERFACE SYSTEM GLUCOSE POC 90 65 - 99 mg/dL INTERFACE SYSTEM 04/17/2007 5:23 PM CDT us Authorized P Er POINT OF CARE TESTING Edited INTERFACE SYSTEM Refer to clinic/hospital department documented in this encounter Visit Diagnoses Diagnosis Cellulitis and abscess of leg, except foot- Primary documented in this encounter Additional Health Concerns Infection Onset Date Last Indicated Resolved Time R/O Respiratory 05/13/2024 05/13/2024 05/13/2024 3 :49 AM CDT documented as of this encounter Care Teams Tread Booker Relationship Specialty [place] [address] [place] [address] PCP - General Internal Medicine 02/18/17 07/02/24 documented as of this encounter
--- OUTSIDE RECORDS SUMMARY | 2024-10-05 18:14 | XMS_ITS | Encounter Summary ---
Author Organization [facility] Address [address] [place] [address] Care Team Providers Care Frame Trimmer Name Role Phone Jhonathan Kim MD Primary Care Provider Encounter Details Date Type Department Care Team (Late st Contact Info) Description 04/28/2006 Outpatient [facility] [address] [place] [phone] Noah Santos MD [address] [place] [phone] Social History Tobacco Use Types Packs/Day Years Used Date Smoking Tobacco: Never Assessed Comments Unknown Sex and Gender Information Value Date Recorded Sex Assigned at Not on file 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
--- OUTSIDE RECORDS SUMMARY | 2024-10-05 18:14 | XMS_ITS | Encounter Summary ---
Author Organization [facility] Address [address] [place] [address] Care Team Providers Care Pick Remover Name Role Phone Unavailable Primary Care Provider Unavailabl e Reason for Referral * Radiology Services (Routine) - Closed Specialty Diagnoses / Procedures Referred By Contac t Referred To Contact Radiology Diagnoses Kidney stone Procedures US [place] [address] [address] Phone: tel: fax: [facility] [id number] [place] [phone] Phone: tel: fax: Referral ID Status Reason Start Date Expiration Date Visits Re quested Visits Authorized [id number] Closed 06/27/2024 07/28/2025 1 1 Reason for Visit * Radiology Services (Routine) - Closed Specialty Diagnoses / Procedures Referred By Contac t Referred To Contact Radiology Diagnoses Kidney stone Procedures US [place]NAL [place] [address] [address] Phone: tel: fax: [address] [address] Phone: tel: fax: Referral ID Status Reason Start Date Expiration Date Visits Re quested Visits Authorized [id number] Closed 06/27/2024 07/28/2025 1 1 Encounter Details Date Type Department Care Team (Late st Contact Info) Description 10/05/2024 12:45 PM CDT Hospital Encounter [facility] [address] [place] [address] [place] [address] [facility] [address] [place] [address] Arrived Social History Tobacco Use Types Packs/Day Years [...] emotionally and/or physically? 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 Gender Identity Not on file Sexual Orientation Not on file Occupation Industry Job Start Date Job End Date Not on file Not on file Not on file Not on file documented as of this encounter Plan of Treatment Not on file documented as of this encounter Procedures Procedure Name Priority Date/Time Associated Diagnosis Comments US RENAL AND BLADDER Routine 10/05/2024 1:40 PM CDT Kidney stone documented in this encounter Results * US RENAL AND BLADDER (10/05/2024 1:40 PM CDT) Anatomical Region Laterality Modality Abdomen Ultrasound 10/05/2024 1:41 PM CDT Impressions 10/05/2024 3:11 PM CDT IMPRESSION: Left renal hydronephrosis with a stent in the ureteropelvic junction Right nephrolithiasis DICTATION LOCATION: Location [facility] Narrative 10/05/2024 3:11 PM CDT ULTRASOUND RETROPERITONEUM LIMITED DATE: 10/05/2024 1:40 PM HISTORY: See Diagnosis Kidney stone COMPARISON: December 05, 2023 TECHNIQUE: Real time ultrasonography of the kidneys and color Doppler of the central venous vessels was performed with freeze frame recording of the images. FINDINGS: Ultrasound and color Doppler was performed of the kidneys. Patient difficulty cooperating and this exam is limited. A left hydronephrosis is present. There is a ureteral stent at about the ureteropelvic junction. The right kidney shows no hydronephrosis. Renal calculi are present.. The bladder could not be imaged because of patient's unable to tolerate positioning The right kidney measures 10.2 cm. The left kidney measures 10.5 cm. Blood flow is demonstrated in both kidneys. INCIDENTAL FINDINGS: None. Procedure Note Janes Frankel MD - 10/05/2024 ULTRASOUND RETROPERITONEUM LIMITED DATE: 10/05/2024 1:40 PM HISTORY: See Diagnosis Kidney stone COMPARISON: December 05, 2023 TECHNIQUE: Real time ultrasonography of the kidneys and color Doppler of the central venous vessels was performed with freeze frame recording of the images. FINDINGS: Ultrasound and color Doppler was performed of the kidneys. Patient difficulty cooperating and this exam is limited. A left hydronephrosis is present. There is a ureteral stent at about the ureteropelvic junction. The right kidney shows no hydronephrosis. Renal calculi are present.. The bladder could not be imaged because of patient's unable to tolerate positioning The right kidney measures 10.2 cm. The left kidney measures 10.5 cm. Blood flow is demonstrated in both kidneys. INCIDENTAL FINDINGS: None. IMPRESSION: Left renal hydronephrosis with a stent in the ureteropelvic junction Right nephrolithiasis DICTATION LOCATION: [address] us Keturah Reynoso MD US ORDERABLES Final Res ult documented in this encounter Visit Diagnoses Diagnosis Kidney stone Calculus of kidney documented in this encounter Additional Health Concerns Assessment Noted Time PHQ-9 Depression Total Score: 2 04/25/20 24 11:43 AM CDT documented as of this encounter
--- OUTSIDE RECORDS SUMMARY | 2024-10-05 18:14 | XMS_ITS | Encounter Summary ---
Author Organization [facility] Address [address] [place] [address] Care Team Providers Care Bench Examiner Name Role Phone Jhonathan Kim MD Primary Care Provider Encounter Details Date Type Department Care Team (Latest Contact Info) Description 04/28/2006 Outpatient [facility] [address] [place] [phone] Jhonathan Rendon MD [address] [place] [address] Unspecified Venous (Peripheral) Insufficiency (Primary Dx) Social History Tobacco Use Types Packs/Day Years Used Date Smoking Tobacco: Never Assessed Comments Unknown Sex and Gender Information Value Date Recorded Sex Assigned at Not on file Legal Sex Female 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
--- OUTSIDE RECORDS SUMMARY | 2024-10-05 18:14 | XMS_ITS | Encounter Summary ---
Author Organization [facility] Address 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
--- OUTSIDE RECORDS SUMMARY | 2024-10-05 18:14 | XMS_ITS | Encounter Summary ---
Author Organization [facility] Address 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 Gender Identity Not on file Sexual Orientation Not on file documented as of this encounter Plan of Treatment Not on file documented as of this encounter Visit Diagnoses Diagnosis Ulcer of lower limb, unspecified (CMS/HCC)- Primary Ulcer of lower limb, unspecified documented in this encounter Additional Health Concerns Infection Onset Date Last Indicated Resolved Time R/O Respiratory 05/13/2024 05/13/2024 05/13/2024 3 :49 AM CDT documented as of this encounter Care Teams Skidder Relationship Specialty [place] [address] [place] [phone] PCP - General Internal Medicine 02/18/17 07/02/24 documented as of this encounter
--- OUTSIDE RECORDS SUMMARY | 2024-10-05 18:14 | XMS_ITS | Encounter Summary ---
Author Organization [facility] Address [address] [place] [address] Care Team Providers Care Catechist Name Role Phone Jhonathan Kim MD Primary Care Provider Reason for Visit * Reason Onset Date Comments Upper Gi Bleeding 01/04/2024 Spoke joe/Francisca @ Dr. Corona's exchange Encounter Details Date Type Department Care Team (Late st Contact Info) Description 01/04/2024 Telephone [facility] Emergency [address] [place] [address] [place] [address] [place] [address] Upper Gi Bleeding (Spoke joe/Francisca @ Dr. Corona's exchange) Social History Tobacco Use Types Packs/Day [...] someone who hurts you emotionally and/or physically? 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
--- OUTSIDE RECORDS SUMMARY | 2024-10-05 18:14 | XMS_ITS | Encounter Summary ---
Author Organization [facility] Address [address] [place] [address] Care Team Providers Care Rental Clerk Name Role Phone Jhonathan Kim MD Primary Care Provider Encounter Details Date Type Department Care Team (Late st Contact Info) Description 05/12/2006 Outpatient [facility] [id number] [place] [phone] Noah Santos MD [address] [place] [phone] Social History Tobacco Use Types Packs/Day Years Used Date Smoking Tobacco: Never Assessed Comments Unknown Sex and Gender Information Value Date Recorded Sex Assigned at Not on file 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
--- OUTSIDE RECORDS SUMMARY | 2024-10-05 18:14 | XMS_ITS | Encounter Summary ---
Author Organization [facility] Address [address] [place] [address] Care Team Providers Care Hotbed Operator Name Role Phone Jhonathan Kim MD Primary Care Provider Encounter Details Date Type Department Care Team (Latest Contact Info) Description 04/22/2006 Outpatient [facility] [address] [place] [phone] Jhonathan Rendon MD [address] [place] [address] Unspecified Venous (Peripheral) Insufficiency (Primary Dx) Social History Tobacco Use Types Packs/Day Years Used Date Smoking Tobacco: Never Assessed Comments Unknown Sex and Gender Information Value Date Recorded Sex Assigned at Not on file Legal Sex Female 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
--- OUTSIDE RECORDS SUMMARY | 2024-10-05 18:14 | XMS_ITS | Clinical Summary ---
Author Organization [facility] Address [address] [place] [address] Care Team Providers Care Circuit Board Repair Technician Name Role Phone Unavailable Primary Care Provider Unavailabl e Allergies Active Allergy Reactions Criticality Noted Date Comments Adhesive Hives High 06/28/2014 Atorvastatin Constipation Low 04/17/2021 Cephalexin Unknown 07/30/2021 Pt report Fluticasone Other (See Comments) Low 12/08/2022 Inhaled flonase caused nasal sore years ago Penicillins Hives High Medications bisacodyL (DULCOLAX) 5 mg Tablet Take 1 Tablet (5 mg) by mouth 1 time daily as needed for Constipation. As needed 30 Tablet 4 Active omeprazole (PriLOSEC) 40 mg Capsule, Delayed Release(E.C.) Take 1 Capsule (40 mg) by mouth daily. 90 Capsule 3 4 Active acetaminophen (TYLENOL) 500 mg tablet Take 2 Tablets (1,000 mg) by mouth every 6 hours as needed for Pain, Mild / Temperature. 100 Tablet 4 Active cetirizine (ZyrTEC) 10 mg tablet Take 1 Tablet (10 mg) by mouth 1 time daily as needed for Allergies. 30 Tablet 4 Active cyanocobalamin 1,000 mcg Tablet Take 1 Tablet (1,000 mcg) by mouth daily. 30 Tablet 4 Active folic acid (FOLVITE) 1 mg tablet Take 1 Tablet (1 mg) by mouth daily. 30 Tablet 4 Active metoprolol succinate (TOPROL XL) 25 mg Extended Release 24 hour tablet Take 1 Tablet (25 mg) by mouth every 12 hours. 200 Tablet 3 4 Active rosuvastatin (CRESTOR) 5 mg tablet Take 1 Tablet (5 mg) by mouth twice weekly. On Mondays and Fridays 26 Tablet 3 4 Active sertraline (ZOLOFT) 50 mg tabletIndicati ons:Major depressive disorder, recurrent, moderate (CMS/HCC) Take 1 Tablet (50 mg) by mouth daily at bedtime. 100 Tablet 1 4 Active traZODone (DESYREL) 50 mg tablet Take 1 Tablet (50 mg) by mouth daily at bedtime. 100 Tablet 1 4 Active azelastine (ASTELIN) 137 mcg/actuation nasal spray Administer 2 Sprays in each nostril 2 times daily as needed (allergies). 30 mL 2 4 Active blood sugar diagnostic (FreeStyle Lite Strips) StripIndicatio ns:Type 2 diabetes mellitus with stage 3a chronic kidney disease, without long-term current use of insulin (CMS/HCC) Check blood sugar DAILY NEEDED if any concerns about symptoms or blood sugar level. Dx. E11.21, non insulin use 100 Strip 3 4 Active docusate sodium (COLACE) 100 mg capsule Take 1 Capsule (100 mg) by mouth daily. 4 Active polyethylene glycol (MIRALAX) 17 gram Powder in Packet Take 1 Packet (17 Grams) by mouth daily. Mixed with 8 oz water or other beverage 4 Active respiratory syncytial virus, pref A and B, PF, (Abrysvo, PF,) 120 mcg/0.5 mL Recon Soln Inject 0.5 mL (120 mcg) by intramuscular injection see administration instructions. Administer one time at pharmacy 1 Each 4 025 Active divalproex (DEPAKOTE SPRINKLES) 125 mg capsule Take 3 Capsules (375 mg) by mouth every 8 hours. 4 Active cholecalcifero l, vitamin D3, 1,000 unit Take 2 Tablets (2,000 Units) by mouth 2 times daily with meals. 4 Active magnesium hydroxide (milk of magnesia) 400 mg/5 mL suspension Take 30 mL by mouth 1 time daily as needed for Constipation or Dyspepsia. Active QUEtiapine (SEROquel) 50 mg tablet Take 1 Tablet (50 mg) by mouth daily at bedtime. Active tamsulosin (FLOMAX) 0.4 mg capsule Take 1 Capsule (0.4 mg) by mouth daily after breakfast. 4 Active calcium-cholec alciferol (OS-PARESH 500+D) 500 mg-5 mcg (200 unit) tablet Take 1 Tablet by mouth daily with breakfast. Active docusate sodium (COLACE) 100 mg capsule Take 1 Capsule (100 mg) by mouth 2 times daily. 30 Capsule Active nitrofurantoin (MACROBID) 100 mg capsule Take 1 Capsule (100 mg) by mouth 2 times daily. 6 Capsule Active phenazopyridin e 200 mg tablet Take 1 Tablet (200 mg) by mouth 3 times daily as needed for Pain. (Urinary Pain) 20 Tablet Active Active Problems Problem Noted Date Diagnosed Date Secondary hypertension 05/20/2024 Urinary retention 05/18/2024 Difficult [place] catheter placement 05/17/2024 Traumatic subdural hematoma with loss of conscio usness 05/13/2024 New onset of congestive heart failure 05/13/2024 Hypertensive urgency 05/13/2024 Complicated urinary tract infection 05/13/2024 Delirium 05/13/2024 Acute renal failure superimp osed on stage 3a chronic kidney disease 05/13/2024 Cardiorenal disease 05/13/2024 NSTEMI (non-ST elevated myocardial infarction) 1 Prolonged Q-T interval on ECG 05/13/2024 Esophageal diverticulum 05/13/2024 Debility 05/13/2024 History of tobacco abuse 05/13/2024 Dementia with behavioral disturbance 05/13/2024 Type 2 diabetes mellitus with peripheral neuropa thy 04/25/2024 Hypokalemia 02/13/2024 Acute metabolic encephalopathy 01/09/2024 Unresponsiveness 01/09/2024 Vasovagal syncope 01/08/2024 Normocytic anemia 01/07/2024 Elevated CK 01/07/2024 Lower GI bleed 01/05/2024 Elevated troponin 01/05/2024 Hematochezia 01/05/2024 History of parathyroidectomy 01/04/2024 Generalized muscle weakness 01/04/2024 Mood disorder 01/04/2024 Chronic sinusitis 01/04/2024 Chronic constipation 01/04/2024 Aortic atherosclerosis 01/04/2024 Elevated transaminase level 01/04/2024 Pressure ulcer 01/04/2024 Rhabdomyolysis 01/04/2024 Tobacco abuse, in remission 01/04/2024 Fall at home 01/04/2024 Folic acid deficiency (non anemic) 12/25/2023 Moderate late onset Alzheime r's dementia with mood disturbance 12/21/2023 Memory deficit 11/16/2023 Cerebrovascular disease 11/16/2023 Cerebral atrophy 11/16/2023 Protein-calorie malnutrition, severe 11/16/2023 Alcohol abuse, in remission 11/16/2023 Left ureteral stone 06/02/2023 Acute right flank pain 06/02/2023 Acute cystitis without hematuria 06/02/2023 Personal history of DVT (deep vein thrombosis) 1 08/02/2022 Anxiety and depression 06/02/2023 Other secondary thrombocytopenia 06/02/2023 Rhinitis 06/02/2023 Class 1 obesity due to exces s calories with serious comorbidity and body mass index (BMI) of 34.0 to 34.9 in adult 06/02/2023 Nasal polyp 08/18/2021 Type 2 diabetes mellitus wit h hyperglycemia, without long-term current use of insulin 10/10/2019 Statin intolerance 05/03/2018 Type 2 diabetes mellitus wit h stage 3a chronic kidney disease and hypertension 02/19/2018 Type 2 diabetes mellitus wit h diabetic peripheral angiopathy without gangrene, without long-term current use of insulin 05/03/2017 Osteoarthritis of knees, bilateral 02/18/2017 Urge urinary incontinence 02/18/2017 Osteoarthritis of right hip 03/21/2015 S/P parathyroidectomy 09/18/2014 Overview (09/18/2014): 07/07 for hyperparathyroidism Vitamin D deficiency 01/02/2014 Overview (01/02/2014): Noted 12/2013 Refusal of treatment- mammography 06/10/2010 Chronic back pain 09/12/2009 Overview (12/26/2012): MRI 01/04 shows multilevel degenerative changes Former smoker 04/09/2009 Overview (04/09/2009): approx 30 pack years Personal history of alcoholism 04/09/2009 Overview (04/09/2009): terminal carman sobriety Major depressive disorder, r ecurrent episode, in partial remission Essential hypertension Esophageal reflux Hyperlipidemia Overview (03/19/2015): Statin rx in past. Discontinued due to achiness that was not necessarily related. 03/08 estimated ten year risk 9.5%. Venous insufficiency of both lower extremities Overview (07/12/2012): Extensive sup vein thrombosis right leg treated temporarily with warfarin 2011 Resolved Problems Problem Noted Date Diagnosed Date Resolved Date Tachycardia 01/04/2024 01/05/2024 Foul smelling urine 01/04/2024 01/05/20 24 Elevated AST (SGOT) 01/04/2024 01/05/20 24 Elevated ALT measurement 01/04/2024 High anion gap metabolic acidosis 01/04/2024 01/05/2024 Gait abnormality 02/18/2017 01/05/2024 Fall 02/18/2017 01/05/2024 Superficial vein thrombosis 01/28/2012 03/23/2012 Overview (01/28/2012): Extensive in greater saphenous vein 02/02- 4-6 weeks of warfarin begun Severe obesity (BMI 35.0-35. 9 with comorbidity) 06/08/2010 11/20/2023 Hyperparathyroidism 07/12/20 14 Overview (06/08/2014): 2010 Bone density is normal (no osteopenia even in forearm). Does not have hypocalciuria Encounters Date Type Department Care Team Description 10/05/2024 12:45 PM CDT Hospital Encounter [facility] Ultrasound [address] [place] [address] Keturah Reynoso MD Arrived 10/03/2024 External Device Data STL ABSTRACTION Provider, Abstract 10/02/2024 External Device Data STL ABSTRACTION Provider, Abstract from Last 3 Months Immunizations Immunization Administration Dates Next Due (ADACEL/BOOSTRIX)(10 YR UP) TDAP VACCINE, 0.5ML, IM 04/13/2006 (PFIZER)(12 YR UP) COVID-19 VACCINE - EMERGENCY USE AUTHORIZATION, MRNA, [id number](PF) 30 MCG/0.3 ML IM SUSP 05/28/2021,10/29/2020,10/08/2020 (PNEUMOVAX 23)(50 YRS UP) PN EUMOCOCCAL POLYSACCHARIDE (PPV23) 0.5 ML, IM 05/28/2011 (PREVNAR 13)(6 WKS UP) PNEUM OCOCCAL CONJUGATE (PCV13) 0.5 ML, IM 09/18/2014 (TENIVAC)(7 YRS UP) TETANUS AND DIPHTHERIA TOXOIDS, ADSORBED (5 LF OF TETANUS TOXOID AND 2 LF OF DIPHTHERIA TOXOID), 0.5ML (PF), IM 12/27/2015 INFLUENZA VACCINE HIGH DOSE QUADRIVALENT 65 YR UP PF IM 08/06/2022,04/17/2021,04/15/2020,06/05,07/07/2018,09/10/2016,06/10/2015 INFLUENZA VACCINE HIGH DOSE TRIVALENT SPLIT VIRUS, (65 YR UP), 0.5ML (PF), IM 04/25/2024 INFLUENZA VACCINE QUADRIVALE NT 3 YR UP PF IM 05/20/2014 Influenza Seasonal Unspecifi ed Formulation IM 05/20/2014,06/14/2013,07/03/2001,07/02 Influenza Vaccine High Dose 65+ Yrs IM 1 08/05/2018,07/07/2018,04/26/2017,09/10,06/10/2015 Influenza Vaccine Quad Split 3+ Yrs Im 3 Influenza Vaccine Split 3+ Yrs IM 2011,05/28/2011,05/27/2010,04/09 PREVNAR (PCV13) pneumococcal 13-valent conjugate Vaccine 09/18/2014 Typhoid Vaccine, Unspecified Formulation 12/27/2015 Family History Medical History Relation Name Comments Cancer Father Sheldon unknown Heart Disease Father Sheldon Kidney Disease Father Sheldon Other Maternal Grandmother dementi a Depression Mother Cathy Hypertension Mother Cathy Other Mother Cathy dementia,tremor , ataxia Relation Name Status Comments Father Sheldon Maternal Grandmother Mother Cathy Alive Social History Tobacco Use Types Packs/Day Years Used Date Smoking Tobacco: Former Cigarettes 1.5 20 0 07/25/1977 - 07/25/1997 Smokeless Tobacco: Never Tobacco Cessation:Counseling Given: Not Answered Alcohol Use Standard Drinks/Week Comments No 0 [...] on file Legal Sex Female 3:30 AM TICKET PULLER Gender Identity Not on file Sexual Orientation Not on file Occupation Industry Job Start Date Job End Date Not on file Not on file Not on file Not on file Last Filed Vital Signs Vital Sign Reading Time Taken Comments Blood Pressure 162/72 06/06/2024 4:52 PM TICKET PULLER Pulse 69 06/06/2024 4:52 PM TICKET PULLER Temperature 36.7 C (98.1 F) 06/06/2024 4:09 PM TICKET PULLER Respiratory Rate 18 06/06/2024 4:52 PM TICKET PULLER Oxygen Saturation 100% 06/06/2024 4:52 PM TICKET PULLER Inhaled Oxygen Concentration - - Weight 80.4 kg (177 lb 3.2 oz) 06/06/2024 1:27 P M TICKET PULLER Height 170.2 cm (5' 7 ) 06/06/2024 1:27 PM TICKET PULLER Body Mass Index 27.75 06/06/2024 1:27 PM TICKET PULLER Plan of Treatment Health Maintenance Due Date Last Done Comments ZOSTER VACCINE (1 of 2) 1996 RSV VACCINE (60+ or ) (1 - 1-dose 75+ series) 2021 DIABETES MICROALBUMIN ANNUAL SCREEN 10/02/2023 10/01/2022, 12/17/2021, 03/05/2021, Additional history exists COVID-19 Vaccine (2023-2 5 season) 2024 05/28/2021, 10/29/2020, 10/08/2020 DIABETES HBA1C Q 6 MONTHS 11/10/20242023, 12/21/2023, 06/01/2023, Additional history exists DIABETES ANNUAL RETINAL EXAM 03/29/202511/2023, 08/24/2023, 09/09/2021, Additional history exists DIABETES ANNUAL FOOT EXAM 04/25/20252023, 12/08/2022, 12/16/2021, Additional history exists Traditional Medicare (ACO) A nnual Wellness Visit 04/26/2025 04/25/2024, 12/08/2022, 12/16/2021, Additional history exists LDL CHOLESTEROL ANNUAL 05/13/2025 , 12/21/2023, 10/01/2022, Additional history exists DTAP/TDAP/TD VACCINES (3 - T d or Tdap) 12/26/2025 12/27/2015, 04/13/2006 FIT/FOBT Q 1 year Discontinued 11/29/2000, 09/04/1998 COLORECTAL SCREENING Discontinued 12/23/2001 Colorectal Cancer Screening Discontinued OSTEOPOROSIS SCREENING Completed 06/08/2011 PNEUMOCOCCAL VACCINE 50+ YEARS Completed 0 09/18/2014, 09/18/2014, 05/28/2011 INFLUENZA VACCINE Completed 04/25/2024, , 08/06/2022, Additional history exists FIT-DNA Q 3 years Discontinued Flex Sig/CT Colonography Q 5 years Discontinued Medical Devices Implanted Type Area General Freight Agent Device Identifier Shelf Expiration Date Model / Serial / Lot Stent Tria Soft 6fr 26cm W/ Side Hl [id number] - [id number] Implanted:Qty : 1 on 07/13/2023 by Keturah Reynoso MD at [facility] Stent Right: Ureter [employer]IEF [employer]UREMENT OFFICER 03/29/2026 [id number] 30 / / [id number] Description:CHECKED BY LG Stent Tria Soft 6fr 26cm W/ Side [id number] - [id number] Implanted:Qty : 1 on 05/14/2024 by Keturah Reynoso MD at [facility] Stent Left: Ureter [employer]IEF [employer]UREMENT OFFICER [id number] 02/28/2027 [id number] 30 / / [id number] Stent Tria Soft 6fr 26cm W/ Side [id number] - [id number] Implanted:Qty : 1 on 06/06/2024 by Keturah Reynoso MD at [facility] Stent Left: Ureter [employer]IEF PROCUREMENT OFFICER 03/21/2027 [id number] 30 / [id number] / Explanted Type Area General Freight Agent Device Identifier Shelf Expiration Date Model / Serial / Lot Stent Tria Soft 6fr 26cm W/ Side [id number] - [id number] Implanted:Qty: 1 on 06/02/2023 by Keturah Reynoso MD at [facility] Explanted:Qty: 1 on 07/13/2023 by Keturah Reynoso MD at [facility] Stent Right: Ureter [employer]F [employer]UREMENT OFFICER 03/15/2026 [id number] / / [id number] Description:CHECKED BY LG Procedures Procedure Name Priority Date/Time Associated Diagnosis Comments US RENAL AND BLADDER Routine 10/05/2024 1:40 PM CDT Kidney stone LIPID PANEL Stat 05/13/2024 1:24 AM CDT HEMOGLOBIN A1C Stat 05/12/2024 8:25 PM CDT MICROALBUMIN/CREATIN INE RATIO, RANDOM UR Routine 10/01/2022 2:54 PM TICKET PULLER HM DIABETES EYE EXAM Routine 09/09/2021 XR DEXA BONE DENSITY AXIAL 1 OR MORE SITES Routine 06/08/2011 10:07 AM TICKET PULLER Hyperparathyroidism from Last 3 Months or Most Recently Relevant to Health Maintenance Results * US RENAL AND BLADDER (10/05/2024 1:40 PM CDT) Anatomical Region Laterality Modality Abdomen Ultrasound 10/05/2024 1:41 PM CDT Impressions 10/05/2024 3:11 PM CDT IMPRESSION: Left renal hydronephrosis with a stent in the ureteropelvic junction Right nephrolithiasis DICTATION LOCATION: Location 7 - [facility] Narrative 10/05/2024 3:11 PM CDT ULTRASOUND RETROPERITONEUM [...] ureteropelvic junction Right nephrolithiasis DICTATION LOCATION: Location [address] [place] [address] us Keturah Reynoso MD US ORDERABLES Final Res ult * (ABNORMAL) LIPID PANEL (05/13/2024 1:24 AM CDT) Pathologist [facility] CHOLESTEROL 172 <200 mg/dL 05/13/2024 4:00 AM T [facility] TRIGLYCERIDE 126 <150 mg/dL 05/13/2024 4:00 AM CDT [facility] HDL 47 40 - 59 mg/dL 05/13/2024 4:00 AM T [facility] LDL CALCULATED 100(H) <100 mg/dL 05/13/2024 4:00 AM T [facility] NON-HDL CHOLESTEROL 125 <130 mg/dL 05/13/2024 4:00 AM T [facility] Blood Venipuncture / Unknown 05/13/2024 1:24 AM CDT 05/13/2024 1:27 AM CDT [facility] - 05/13/2024 4:00 AM CDT TOTAL CHOLESTEROL mg/dL Desirable <200 Borderline high 200-239 High >=240 TRIGLYCERIDES mg/dL Normal <150 Borderline high 150-199 High 200-499 Very high >=500 HDL CHOLESTEROL mg/dL Low <40 Normal 40-59 Desirable >=60 NON HDL CHOLESTEROL mg/dL Optimal <130 Near Optimal 130-159 Borderline High 160-189 Very High >=190 CALCULATED LDL mg/dL LDL <70, OPTIMAL if have Atherosclerotic cardiovascular disease (ASCVD) or intermediate or higher (>7.5%) 10 year risk of ASCVD including most adults with diabetes. LDL <100, Optimal in adult patients with low (<7.5%) 10 year ASCVD risk LDL 100-160, Suboptimal LDL >160, High LDL >190, Very high ATPIII Guidelines Reference Ranges for Lipid Panels (NCEP/AMA) . Barber Ibrahim DO CHEMISTRY ORDERABLE S Final Result [facility]# [id number] [place] [address] * (ABNORMAL) HEMOGLOBIN A1C (05/12/2024 8:25 PM CDT) HEMOGLOBIN A1C 6.4(H) <=5.6 % 05/13/2024 1:30 AM CDT [facility] EST. AVG GLUCOSE, A1C 137 mg/dL 05/13/2024 1:30 AM CDT [facility] Blood Venipuncture / Unknown 05/12/2024 8:25 PM CDT 05/12/2024 8:28 PM CDT Narrative [facility] - 05/13/2024 1:30 AM CDT HGB A1C INTERPRETATION NORMAL: <5.7% PRE-DIABETES: 5.7 - 6.4% DIABETES: 6.5% OR GREATER Barber Ibrahim DO CHEMISTRY ORDERABLE S Final Result Performing Organization Address City/[facility]/ZIP Co de Phone Number [facility]# [id number] [place] [address] * MICROALBUMIN/CREATININE RATIO, RANDOM UR (10/01/2022 2:54 PM TICKET PULLER) Creatinine, Urine 100 20 - 275 mg/dL [facility] MICROALBUMIN, URINE 0.6 See Note: mg/dL [facility] Comment: Reference Range: Reference Range Not established MICROALBUMIN/CREAT RATIO, UR 6 <30 mcg/mg creat [facility] Comment: The ADA defines abnormalities in albumin excretion as follows: Albuminuria Category Result (mcg/mg creatinine) Normal to Mildly increased <30 Moderately increased 30-299 Severely increased > OR = 300 The ADA recommends that at least two of three specimens collected within a 3-6 month period be abnormal before considering a patient to be within a diagnostic category. Test Performed at: [facility] [address] [place] [address] Mohinder Yeh MD 10/01/2022 2:54 PM TICKET PULLER 10/01/2022 2:54 PM TICKET PULLER us Jhonathan Kim MD URINE ORDERABLES Final Result [facility] [phone] [address] * DIABETES EYE EXAM (09/09/2021) us Omar Laura MD HEALTH MAINTENANCE Edit ed Result - Final Performing Organization Address City/[facility]/ZIP Co de Phone Number [facility]# [id number] [address] [place] [id number] * XR DEXA BONE DENSITY AXIAL 1 OR MORE SITES (06/08/2011 10:07 AM TICKET PULLER) Anatomical Region Laterality Modality Digital Radiogra phy 06/08/2011 9:49 AM TICKET PULLER Narrative 06/08/2011 10:35 AM TICKET PULLER XR DEXA BONE DENSITY AXIAL 1 OR MORE SITES HISTORY: 66 yo F with postmenopausal symptoms with a history of hyperparathyroidism needing evaluation for osteoporosis. PROCEDURE: Using a [employer] dual energy x-ray absorptiometry system, the patient's bone mineral density was measured over the lumbar spine, forearm and femoral necks. Comparison was made to age and sex matched normal values. FINDINGS: Lumbar Spine ( L1-L4, - L2 ) Bone Mineral Density = 1.366 gm/cm2 Compared to young adult (T-score), difference of +1.6 Standard Deviations. The patient's spine BMD is above normal when compared to that of a young adult. Left Femoral Neck Bone Mineral Density = 0.949 gm/cm2 Compared to young adult (T-score), difference of -0.6 Standard Deviations. The patient's left femoral neck BMD is normal when compared to that of a young adult. Right Femoral Neck Bone Mineral Density = 0.913 gm/cm2 Compared to young adult (T-score), difference of -0.9 Standard Deviations. The patient's right femoral neck BMD is normal when compared to that of a young adult. Left Radius 33% Bone Mineral Density = 0.915 gm/cm2 Compared to young adult (T-score), difference of +0.4 Standard Deviations. The patient's left Radius 33% BMD is normal when compared to that of a young adult. Comparison is made to the most recent measurements of BMD dated 07/06/2002. The prior spine ( L1-L4, - L2 ) BMD was 1.247 gm/cm2. Today's value represents a change of +9.5%, a statistically significant change. The prior left femoral neck BMD was 0.867 gm/cm2. Today's value represents a change of +9.5%, a statistically significant change. No prior right femoral neck bone mineral density measurements are available for comparison. No prior left forearm bone mineral density measurements are available for comparison. A significant change is defined as a change of at least 2.5 standard deviations since the prior study. Procedure Note Nigel Castrejon, DO - 06/08/2011 XR DEXA BONE DENSITY AXIAL 1 OR MORE SITES HISTORY: 66 yo F with postmenopausal symptoms with a history of hyperparathyroidism needing evaluation for osteoporosis. PROCEDURE: Using a [employer] dual energy x-ray absorptiometry system, the patient's bone mineral density was measured over the lumbar spine, forearm and femoral necks. Comparison was made to age and sex matched normal values. FINDINGS: Lumbar Spine ( L1-L4, - L2 ) Bone Mineral Density = 1.366 gm/cm2 Compared to young adult (T-score), difference of +1.6 Standard Deviations. The patient's spine BMD is above normal when compared to that of a young adult. Left Femoral Neck Bone Mineral Density = 0.949 gm/cm2 Compared to young adult (T-score), difference of -0.6 Standard Deviations. The patient's left femoral neck BMD is normal when compared to that of a young adult. Right Femoral Neck Bone Mineral Density = 0.913 gm/cm2 Compared to young adult (T-score), difference of -0.9 Standard Deviations. The patient's right femoral neck BMD is normal when compared to that of a young adult. Left Radius 33% Bone Mineral Density = 0.915 gm/cm2 Compared to young adult (T-score), difference of +0.4 Standard Deviations. The patient's left Radius 33% BMD is normal when compared to that of a young adult. Comparison is made to the most recent measurements of BMD dated 07/06/2002. The prior spine ( L1-L4, - L2 ) BMD was 1.247 gm/cm2. Today's value represents a change of +9.5%, a statistically significant change. The prior left femoral neck BMD was 0.867 gm/cm2. Today's value represents a change of +9.5%, a statistically significant change. No prior right femoral neck bone mineral density measurements are available for comparison. No prior left forearm bone mineral density measurements are available for comparison. A significant change is defined as a change of at least 2.5 standard deviations since the prior study. Jhonathan Rendon MD DIAGNOSTIC IMAGING ORDERABLES Final Result from Last 3 Months or Most Recently Relevant to Health Maintenance Insurance MEDICARE PART A AND B [employer] [place] [address] [place] [address] MEDICARE [facility] MEDICARE [facility] [address] [place] [id number] RX [employer] RX Member Subscriber Plan / Payer (Ef fective 2014-Present) Name:Emilie Finn Relation to Subscriber:Self Name:Emilie Finn Payer ID:Not on file Group ID:[id number] Type:RX Medicare Part D Address: [address] RX [employer] PLANS (INTERNAL) [place] Internal Plans Advance Directives For more information, please contact: [phone] Documents on File Type Date Recorded Patient Objective C Developer Expl anation Advance Directive POA 05/17/2024 10:00 AM Advance Directive POA * Full Code (Latest Code Status on File) Date Activated Date Inactivated Comments 05/13/2024 3:15 AM 05/24/2024 5:31 PM * Full Code Date Activated Date Inactivated Comments 02/13/2024 8:01 PM 02/15/2024 5:41 PM * Full Code Date Activated Date Inactivated Comments 01/04/2024 6:11 PM 01/12/2024 3:53 PM * Full Code Date Activated Date Inactivated Comments 06/02/2023 12:24 AM 06/03/2023 1:58 PM * Default Full Code - Needs Discussion Date Activated Date Inactivated Comments 06/01/2023 11:10 PM 06/02/2023 12:24 AM
--- OUTSIDE RECORDS SUMMARY | 2024-10-05 18:14 | XMS_ITS | Encounter Summary ---
Author Organization [facility] Address [address] [place] [address] Care Team Providers Care Retail Marketing Executive Name Role Phone Jhonathan Kim MD Primary Care Provider Encounter Details Date Type Department Care Team (Late st Contact Info) Description 05/26/2006 Outpatient [facility] - [facility] [address] [place] [address] [place] [address] [place] [address] Social History Tobacco Use Types Packs/Day Years Used Date Smoking Tobacco: Never Assessed Comments Unknown Sex and Gender Information Value Date Recorded Sex Assigned at Not on file Legal Sex Female 3:30 AM SURGEON/PRESIDENT Gender Identity Not on file Sexual Orientation Not on file documented as of this encounter Plan of Treatment Not on file documented as of this encounter Visit Diagnoses Not on filedocumented in this encounter Additional Health Concerns Infection Onset Date Last Indicated Resolved Time R/O Respiratory 05/13/2024 05/13/2024 05/13/2024 3 :49 AM CDT documented as of this encounter Care Teams Retail Marketing Executive Relationship Specialty [place] [address] [place] [address] PCP - General Internal Medicine 02/18/17 07/02/24 documented as of this encounter
--- OUTSIDE RECORDS SUMMARY | 2024-10-05 18:14 | XMS_ITS | Encounter Summary ---
Author Organization [facility] Address [address] [place] [address] Care Team Providers Care Senior Peoplesoft Developer Name Role Phone Jhonathan Kim MD Primary Care Provider Encounter Details Date Type Department Care Team (Late st Contact Info) Description 04/22/2006 Outpatient [facility] - [facility] [address] [place] [phone] Hai Matos MD [address] [place] [address] Social History Tobacco Use Types Packs/Day Years Used Date Smoking Tobacco: Never Assessed Comments Unknown Sex and Gender Information Value Date Recorded Sex Assigned at Not on file Legal Sex Female 3:30 AM PRODUCT DELIVERY SPECIALIST Gender Identity Not on file Sexual Orientation Not on file documented as of this encounter Plan of Treatment Not on file documented as of this encounter Visit Diagnoses Not on filedocumented in this encounter Additional Health Concerns Infection Onset Date Last Indicated Resolved Time R/O Respiratory 05/13/2024 05/13/2024 05/13/2024 3 :49 AM CDT documented as of this encounter Care Teams Senior Peoplesoft Developer Relationship Specialty [place] [address] [place] [phone] PCP - General Internal Medicine 02/18/17 07/02/24 documented as of this encounter
--- OUTSIDE RECORDS SUMMARY | 2024-10-05 18:14 | XMS_ITS | Encounter Summary ---
[facility] Organization [facility] Address [address] [place] [address] Care Team Providers Care Voice Network Engineer Name Role Phone Unavailable Primary Care Provider Unavailabl e Encounter Details Date Type Department Care Team (Late st Contact Info) Description 10/03/2024 External Device Data [facility] ABSTRACTION Provider, Abstract NO ADDRESS ON FILE Social History Tobacco [...] on file Legal Sex Female 3:30 AM CLINICAL SAFETY MANAGER Gender Identity Not on file Sexual [...]
--- OUTSIDE RECORDS SUMMARY | 2024-10-05 18:14 | XMS_ITS | Encounter Summary ---
Author Organization [facility] Address [address] [place] [address] Care Team Providers Care Binder Stripper Hand Name Role Phone Jhonathan Kim MD Primary Care Provider Encounter Details Date Type Department Care Team (Late st Contact Info) Description 05/26/2006 Outpatient [facility] - [facility] [address] [place] [phone] Noah Santos MD [address] [place] [phone] Social History Tobacco Use Types Packs/Day Years Used Date Smoking Tobacco: Never Assessed Comments Unknown Sex and Gender Information Value Date Recorded Sex Assigned at Not on file Legal Sex Female 3:30 AM INSIDE SALES ASSOCIATE Gender Identity Not on file Sexual Orientation Not on file documented as of this encounter Plan of Treatment Not on file documented as of this encounter Visit Diagnoses Not on filedocumented in this encounter Additional Health Concerns Infection Onset Date Last Indicated Resolved Time R/O Respiratory 05/13/2024 05/13/2024 05/13/2024 3 :49 AM CDT documented as of this encounter Care Teams Binder Stripper Hand Relationship Specialty [place] [address] [place] [address] PCP - General Internal Medicine 02/18/17 07/02/24 documented as of this encounter
--- OUTSIDE RECORDS SUMMARY | 2024-10-05 18:14 | XMS_ITS | Encounter Summary ---
Author Organization [facility] Address [address] [place] [address] Care Team Providers Care Mortgage Loan Officer Originator Name Role Phone Jhonathan Kim MD Primary Care Provider Encounter Details Date Type Department Care Team (Latest Contact Info) Description 05/12/2006 Outpatient [facility] - [facility] [address] [place] [phone] Jhonathan Rendon MD [address] [place] [address] Unspecified Venous (Peripheral) Insufficiency (Primary Dx) Social History Tobacco Use Types Packs/Day Years Used Date Smoking Tobacco: Never Assessed Comments Unknown Sex and Gender Information Value Date Recorded Sex Assigned at Not on file Legal Sex Female 3:30 AM HOURLY SHIFT Gender Identity Not on file Sexual Orientation [...] documented as of this encounter Care Teams Mortgage Loan Officer Originator Relationship Specialty [place] [address] [place] [phone] PCP - General Internal Medicine 02/18/17 07/02/24 documented as of this encounter
[2024-10-05 18:18] VITALS: BP 146/59; PULSE 58; RESP 18; TEMP 36.3; O2SAT 100
[2024-10-05 19:10] VITALS: BP 144/59; PULSE 65; RESP 18; O2SAT 96
--- NOTE | 2024-10-05 19:12 | PC.NURSE ---
Pt. carlos and GALA states she is taking the pt. back to her memory care unit per her own vehicle. memory care facility has been called by GALA and is aware pt. is coming back. Pt. taken out to vehicle via [facility].
--- OUTSIDE RECORDS SUMMARY | 2024-10-05 19:56 | XMS_ITS | Encounter Summary ---
Author Organization [facility] Address [address] [place] [address] Care Team Providers Care Chipping Machine Operator Name Role Phone Jhonathan Kim MD Primary Care Provider Encounter Details Date Type Department Care Team (Late st Contact Info) Description 08/29/1998 Outpatient Historical [facility] Internal Medicine [place] [address] [place] [address] Jhonathan Rendon MD [address] [place] [address] Social History Tobacco Use Types Packs/Day Years Used Date Smoking Tobacco: Never Assessed Comments Unknown Sex and Gender Information Value Date Recorded Sex Assigned at Not on file Legal Sex Female 3:30 AM PROGRAM MANAGER TRANSPORTATION Gender Identity Not on file Sexual Orientation Not on file documented as of this encounter Plan of Treatment Not on file documented as of this encounter Visit Diagnoses Not on filedocumented in this encounter Additional Health Concerns Infection Onset Date Last Indicated Resolved Time R/O Respiratory 05/13/2024 05/13/2024 05/13/2024 3 :49 AM CDT documented as of this encounter Care Teams Chipping Machine Operator Relationship Specialty [place] [address] [place] [address] PCP - General Internal Medicine 02/18/17 07/02/24 documented as of this encounter
--- OUTSIDE RECORDS SUMMARY | 2024-10-05 19:57 | XMS_ITS | Encounter Summary ---
Author Organization [facility] Address [address] [place] [address] Care Team Providers Care Network Applications Specialist Name Role Phone Jhonathan Kim MD Primary Care Provider Encounter Details Date Type Department Care Team (Late st Contact Info) Description 07/15/2008 Outpatient Historical [facility] [place] [facility] Jhonathan Rendon MD [address] [place] [address] Hypercalcemia Social History Tobacco Use Types Packs/Day Years Used Date Smoking Tobacco: Former Cigarettes Q uit: 07/25/1997 Alcohol Use Standard Drinks/Week Comments Not Asked 0 (1 standard drink = 0.6 oz pur e alcohol) Comments No Sex and Gender Information Value Date Recorded Sex Assigned at Not on file Legal Sex Female 3:30 AM SINTERING PRESS OPERATOR Gender Identity Not on file Sexual Orientation Not on file documented as of this encounter Plan of Treatment Not on file documented as of this encounter Visit Diagnoses Diagnosis Hypercalcemia documented in this encounter Additional Health Concerns Infection Onset Date Last Indicated Resolved Time R/O Respiratory 05/13/2024 05/13/2024 05/13/2024 3 :49 AM CDT documented as of this encounter Care Teams Network Applications Specialist Relationship Specialty [place] [address] [place] [address] PCP - General Internal Medicine 02/18/17 07/02/24 documented as of this encounter
--- OUTSIDE RECORDS SUMMARY | 2024-10-05 19:57 | XMS_ITS | Encounter Summary ---
Author Organization [facility] Address [address] [place] [address] Care Team Providers Care Supervisor Line Department Name Role Phone Jhonathan Kim MD Primary Care Provider Encounter Details Date Type Department Care Team (Late st Contact Info) Description 09/04/1998 Outpatient Historical [facility] Internal Medicine [place] [address] [place] [address] Jhonathan Rendon MD [address] [place] [address] Social History Tobacco Use Types Packs/Day Years Used Date Smoking Tobacco: Never Assessed Comments Unknown Sex and Gender Information Value Date Recorded Sex Assigned at Not on file Legal Sex Female 3:30 AM TOBACCO SCRAP SIFTER Gender Identity Not on file Sexual Orientation Not on file documented as of this encounter Plan of Treatment Not on file documented as of this encounter Visit Diagnoses Not on filedocumented in this encounter Additional Health Concerns Infection Onset Date Last Indicated Resolved Time R/O Respiratory 05/13/2024 05/13/2024 05/13/2024 3 :49 AM CDT documented as of this encounter Care Teams Supervisor Line Department Relationship Specialty [place] [address] [place] [address] PCP - General Internal Medicine 02/18/17 07/02/24 documented as of this encounter
--- OUTSIDE RECORDS SUMMARY | 2024-10-05 19:57 | XMS_ITS | Encounter Summary ---
Author Organization [facility] Address [address] [place] [address] Care Team Providers Care Design Engineering Technician Name Role Phone Jhonathan Kim MD Primary Care Provider Encounter Details Date Type Department Care Team (Late st Contact Info) Description 12/13/2001 Outpatient Historical [facility] Internal Medicine [place] [address] [place] [address] Jhonathan Rendon MD [address] [place] [address] Social History Tobacco Use Types Packs/Day Years Used Date Smoking Tobacco: Never Assessed Comments Unknown Sex and Gender Information Value Date Recorded Sex Assigned at Not on file Legal Sex Female 3:30 AM SALESPERSON CORSETS Gender Identity Not on file Sexual Orientation Not on file documented as of this encounter Plan of Treatment Not on file documented as of this encounter Visit Diagnoses Not on filedocumented in this encounter Additional Health Concerns Infection Onset Date Last Indicated Resolved Time R/O Respiratory 05/13/2024 05/13/2024 05/13/2024 3 :49 AM CDT documented as of this encounter Care Teams Design Engineering Technician Relationship Specialty [place] [address] [place] [address] PCP - General Internal Medicine 02/18/17 07/02/24 documented as of this encounter
--- OUTSIDE RECORDS SUMMARY | 2024-10-05 19:57 | XMS_ITS | Encounter Summary ---
Author Organization [facility] Address [address] [place] [address] Care Team Providers Care Component Design Engineer Name Role Phone Jhonathan Kim MD Primary Care Provider Encounter Details Date Type Department Care Team (Late st Contact Info) Description 02/12/[address] [facility] Internal Medicine [place] [address] [place] [address] Jhonathan Rendon MD [address] [place] [address] Social History Tobacco Use Types Packs/Day Years Used Date Smoking Tobacco: Never Assessed Comments Unknown Sex and Gender Information Value Date Recorded Sex Assigned at Not on file Legal Sex Female 3:30 AM FISH DRIER Gender Identity Not on file Sexual Orientation Not on file documented as of this encounter Plan of Treatment Not on file documented as of this encounter Visit Diagnoses Not on filedocumented in this encounter Additional Health Concerns Infection Onset Date Last Indicated Resolved Time R/O Respiratory 05/13/2024 05/13/2024 05/13/2024 3 :49 AM CDT documented as of this encounter Care Teams Component Design Engineer Relationship Specialty [place] [address] [place] [address] PCP - General Internal Medicine 02/18/17 07/02/24 documented as of this encounter
--- OUTSIDE RECORDS SUMMARY | 2024-10-05 19:57 | XMS_ITS | Encounter Summary ---
Author Organization [facility] Address [address] [place] [address] Care Team Providers Care Ssas Developer Name Role Phone Jhonathan Kim MD Primary Care Provider Encounter Details Date Type Department Care Team (Late st Contact Info) Description 10/31/2006 Outpatient Historical [facility] Internal Medicine [place] [address] [place] [address] Jhonathan Rendon MD [address] [place] [address] Essential Hypertension, Benign (Primary Dx) Social History Tobacco Use Types Packs/Day Years Used Date Smoking Tobacco: Never Assessed Comments Unknown Sex and Gender Information Value Date Recorded Sex Assigned at Not on file Legal Sex Female 3:30 AM SPLITTING 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 HELPER Gender Identity Not on file Sexual [...] MD CHEMISTRY ORDERABLES Edited Performing Organization Address City/State/[facility] Co de Phone Number INTERFACE SYSTEM Refer to clinic/hospital department * ALT (10/31/2006 11:02 AM CDT) ALT 22 0 - 31 U/L INTERFACE SYSTEM 10/31/2006 11:0 2 AM CDT us Jhonathan Rendon MD CHEMISTRY ORDERABLES Edited Performing Organization Address [facility] Co de Phone Number INTERFACE SYSTEM Refer [...] available on the [facility] Intranet at: [email or web address] Select: Lab Policies and Procedures Select: Reference Ranges - Lipids 10/31/2006 11:0 2 AM CDT us Jhonathan Rendon MD CHEMISTRY ORDERABLES Edited Performing Organization Address City/[facility] Co de Phone Number INTERFACE SYSTEM Refer to clinic/hospital department documented in this encounter Visit Diagnoses Diagnosis Essential hypertension, benign- Primary documented in this encounter Additional Health Concerns Infection Onset Date Last Indicated Resolved Time R/O Respiratory 05/13/2024 05/13/2024 05/13/2024 3 :49 AM CDT documented as of this encounter Care Teams Ssas Developer Relationship Specialty [place] [address] [place] [address] PCP - General Internal Medicine 02/18/17 07/02/24 documented as of this encounter
--- OUTSIDE RECORDS SUMMARY | 2024-10-05 19:57 | XMS_ITS | Encounter Summary ---
Author Organization [facility] Address [address] [place] [address] Care Team Providers Care Hand Quilter Name Role Phone Jhonathan Kim MD Primary Care Provider Encounter Details Date Type Department Care Team (Late st Contact Info) Description 07/06/2002 Outpatient Historical [facility] Jhonathan Rendon MD [address] [place] [address] MENOPAUSAL DISORDER NEC (Primary Dx) Social History Tobacco Use Types Packs/Day Years Used Date Smoking Tobacco: Never Assessed Comments Unknown Sex and Gender Information Value Date Recorded Sex Assigned at Not on file Legal Sex Female 3:30 AM SUPERVISOR BUILDING MAINTENANCE Gender Identity Not on file Sexual Orientation [...] documented as of this encounter Care Teams Hand Quilter Relationship Specialty [place] [address] [place] [phone] PCP - General Internal Medicine 02/18/17 07/02/24 documented as of this encounter
--- OUTSIDE RECORDS SUMMARY | 2024-10-05 19:57 | XMS_ITS | Encounter Summary ---
Author Organization [facility] Address [address] [place] [address] Care Team Providers Care Dice Manager Name Role Phone Jhonathan Kim MD Primary Care Provider Encounter Details Date Type Department Care Team (Late st Contact Info) Description 08/21/1999 Outpatient Historical [facility] Internal Medicine [place] [address] [place] [address] Jhonathan Rendon MD [address] [place] [address] Social History Tobacco Use Types Packs/Day Years Used Date Smoking Tobacco: Never Assessed Comments Unknown Sex and Gender Information Value Date Recorded Sex Assigned at Not on file Legal Sex Female 3:30 AM LEADERSHIP PROGRAM INTERN Gender Identity Not on file Sexual Orientation Not on file documented as of this encounter Plan of Treatment Not on file documented as of this encounter Visit Diagnoses Not on filedocumented in this encounter Additional Health Concerns Infection Onset Date Last Indicated Resolved Time R/O Respiratory 05/13/2024 05/13/2024 05/13/2024 3 :49 AM CDT documented as of this encounter Care Teams Dice Manager Relationship Specialty [place] [address] [place] [address] PCP - General Internal Medicine 02/18/17 07/02/24 documented as of this encounter
--- OUTSIDE RECORDS SUMMARY | 2024-10-05 19:57 | XMS_ITS | Encounter Summary ---
Author Organization [facility] Address [address] [place] [address] Care Team Providers Care Satellite Instruction Facilitator Name Role Phone Jhonathan Kim MD Primary Care Provider Encounter Details Date Type Department Care Team (Latest Contact Info) Description 06/13/2007 Outpatient Historical [facility] [place] ([place]) Jhonathan Rendon MD [address] [place] [address] Unspecified Essential Hypertension (Primary Dx) Social History Tobacco Use Types Packs/Day Years Used Date Smoking Tobacco: Never Assessed Comments No Sex and Gender Information Value Date Recorded Sex Assigned at Not on file Legal Sex Female 3:30 AM MACHINED PARTS METAL SPRAYER Gender Identity Not on file Sexual Orientation Not on file documented as of this encounter Plan of Treatment Not on file documented as of this encounter Procedures Procedure Name Priority Date/Time Associated Diagnosis Comments LIPID PANEL Routine 06/13/2007 1:02 PM MACHINED PARTS METAL SPRAYER COMPREHENSIVE METABOLIC PANEL Routine 06/13/2007 1:02 PM MACHINED PARTS METAL SPRAYER documented in this encounter Results * (ABNORMAL) LIPID PANEL (06/13/2007 1:02 PM MACHINED PARTS METAL SPRAYER) CHOLESTEROL 190 100 - 199 mg/dL INTERFACE SYSTEM TRIGLYCERIDE 142 10 - 149 mg/dL INTERFACE SYSTEM HDL 54 40 - 59 mg/dL INTERFACE SYSTEM CHOL/HDL RATIO 3.5 2.0 - 5.0 INTER FACE SYSTEM LDL CALCULATED 108(H) <=99 mg/dL INTERFACE SYSTEM LIPID PANEL COMMENT See Below INTERFACE SYSTEM Comment: The adult ATP and pediatric NCEP classifications for lipids are available on the [facility] Intranet at: [email or web address] Select: Lab Policies and Procedures,Current Select: Lipid Panel Interpretation 06/13/2007 1:02 PM MACHINED PARTS METAL SPRAYER Jhonathan Rendon MD CHEMISTRY ORDERABLES Edited INTERFACE SYSTEM Refer to clinic/hospital department * (ABNORMAL) COMPREHENSIVE METABOLIC PANEL (06/13/2007 1:02 PM MACHINED PARTS METAL SPRAYER) GLUCOSE 112(H) 65 - 99 mg/dL INTERFACE [...] and non- Americans is available on the [facility] Intranet at: [email or web address] Select: Lab Policies and Procedures Select: Reference Ranges - GFR 06/13/2007 1:02 PM MACHINED PARTS METAL SPRAYER Result [facility] Jhonathan Rendon MD CHEMISTRY ORDERABLES Edited INTERFACE SYSTEM Refer to clinic/hospital department documented in this encounter Visit Diagnoses Diagnosis Unspecified essential hypertension- Primary documented in this encounter Additional Health Concerns Infection Onset Date Last Indicated Resolved Time R/O Respiratory 05/13/2024 05/13/2024 05/13/2024 3 :49 AM CDT documented as of this encounter Care Teams Satellite Instruction Facilitator Relationship Specialty [place] [address] [place] [address] PCP - General Internal Medicine 02/18/17 07/02/24 documented as of this encounter
--- OUTSIDE RECORDS SUMMARY | 2024-10-05 19:57 | XMS_ITS | Encounter Summary ---
Author Organization [facility] Address [address] [place] [address] Care Team Providers Care Shallot Cleaner Name Role Phone Jhonathan Kim MD Primary Care Provider Encounter Details Date Type Department Care Team (Late st Contact Info) Description 04/17/2007 Outpatient Historical [facility] Jhonathan Silverman MD [address] [place] [address] Er, Authorized P NO ADDRESS ON FILE Cellulitis and Abscess of Leg, except Foot (Primary Dx) Social History Tobacco Use Types Packs/Day Years Used Date Smoking Tobacco: Never Assessed Comments Unknown Sex and Gender Information Value Date Recorded Sex Assigned at Not on file Legal Sex Female 3:30 AM CURTAINS AND DRAPERIES SALESPERSON Gender Identity Not on file Sexual Orientation [...] documented as of this encounter Care Teams Shallot Cleaner Relationship Specialty [place] [address] [place] [address] PCP - General Internal Medicine 02/18/17 07/02/24 documented as of this encounter
--- OUTSIDE RECORDS SUMMARY | 2024-10-05 19:57 | XMS_ITS | Encounter Summary ---
Author Organization [facility] Address [address] [place] [address] Care Team Providers Care Community Health Director Name Role Phone Jhonathan Kim MD Primary Care Provider Encounter Details Date Type Department Care Team (Latest Contact Info) Description 06/02/2006 Outpatient [facility] - [facility] [address] [place] [address] Jhonathan Rendon MD [address] [place] [address] Unspecified Venous (Peripheral) Insufficiency (Primary Dx) Social History Tobacco Use Types Packs/Day Years Used Date Smoking Tobacco: Never Assessed Comments Unknown Sex and Gender Information Value Date Recorded Sex Assigned at Not on file Legal Sex Female 3:30 AM DIGITAL MARKETING MANAGER Gender Identity Not on file Sexual [...] documented as of this encounter Care Teams Community Health Director Relationship Specialty [place] [address] [place] [phone] PCP - General Internal Medicine 02/18/17 07/02/24 documented as of this encounter
--- OUTSIDE RECORDS SUMMARY | 2024-10-05 19:57 | XMS_ITS | Encounter Summary ---
Author Organization [facility] Address [address] [place] [address] Care Team Providers Care Roller Picker Name Role Phone Jhonathan Kim MD Primary Care Provider Encounter Details Date Type Department Care Team (Late st Contact Info) Description 02/10/2001 Outpatient Historical [facility] Internal Medicine [place] [address] [place] [address] Jhonathan Rendon MD [address] [place] [address] Social History Tobacco Use Types Packs/Day Years Used Date Smoking Tobacco: Never Assessed Comments Unknown Sex and Gender Information Value Date Recorded Sex Assigned at Not on file Legal Sex Female 3:30 AM CONTROL INSPECTOR Gender Identity Not on file Sexual Orientation Not on file documented as of this encounter Plan of Treatment Not on file documented as of this encounter Visit Diagnoses Not on filedocumented in this encounter Additional Health Concerns Infection Onset Date Last Indicated Resolved Time R/O Respiratory 05/13/2024 05/13/2024 05/13/2024 3 :49 AM CDT documented as of this encounter Care Teams Roller Picker Relationship Specialty [place] [address] [place] [address] PCP - General Internal Medicine 02/18/17 07/02/24 documented as of this encounter
--- OUTSIDE RECORDS SUMMARY | 2024-10-05 19:57 | XMS_ITS | Encounter Summary ---
Author Organization [facility] Address [address] [place] [address] Care Team Providers Care Construction Engineering Manager Name Role Phone Jhonathan Kim MD Primary Care Provider Encounter Details Date Type Department Care Team (Late st Contact Info) Description 10/11/2005 Outpatient Historical [facility] Internal Medicine [place] [address] [place] [address] Jhonathan Rendon MD [address] [place] [address] Social History Tobacco Use Types Packs/Day Years Used Date Smoking Tobacco: Never Assessed Comments Unknown Sex and Gender Information Value Date Recorded Sex Assigned at Not on file Legal Sex Female 3:30 AM CORE LAYER 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 Gender Identity Not on file Sexual Orientation Not on file documented as of this encounter Plan of Treatment Not on file documented as of this encounter Visit Diagnoses Not on filedocumented in this encounter Additional Health Concerns Infection Onset Date Last Indicated Resolved Time R/O Respiratory 05/13/2024 05/13/2024 05/13/2024 3 :49 AM CDT documented as of this encounter Care Teams Construction Engineering Manager Relationship Specialty [place] [address] [place] [address] PCP - General Internal Medicine 02/18/17 07/02/24 documented as of this encounter
--- OUTSIDE RECORDS SUMMARY | 2024-10-05 19:57 | XMS_ITS | Encounter Summary ---
Author Organization [facility] Address [address] [place] [address] Care Team Providers Care Animal Surgeon Name Role Phone Jhonathan Kim MD Primary Care Provider Encounter Details Date Type Department Care Team (Late st Contact Info) Description 04/13/2006 Outpatient Historical [facility] Internal Medicine [place] [address] [place] [address] Jhonathan Rendon MD [address] [place] [address] Essential Hypertension, Benign (Primary Dx) Social History Tobacco Use Types Packs/Day Years Used Date Smoking Tobacco: Never Assessed Comments Unknown Sex and Gender Information Value Date Recorded Sex Assigned at Not on file Legal Sex Female 3:30 AM CONSULTING IT ARCHITECT Gender Identity Not on file Sexual Orientation [...] ORDERABLES Final Re sult Performing Organization Address [facility] de Phone Number INTERFACE SYSTEM Refer to [...] ORDERABLES Final R esult Performing Organization Address [facility] de Phone Number INTERFACE SYSTEM Refer to [...] classifications for lipids are available on the [facility] Intranet at: [email or web address] Select: Lab Policies and Procedures Select: Reference [...] documented as of this encounter Care Teams Animal Surgeon Relationship Specialty [place] [address] [place] [address] PCP - General Internal Medicine 02/18/17 07/02/24 documented as of this encounter
--- OUTSIDE RECORDS SUMMARY | 2024-10-05 19:57 | XMS_ITS | Encounter Summary ---
Author Organization [facility] Address [address] [place] [address] Care Team Providers Care Airplane Mechanic Name Role Phone Jhonathan Kim MD Primary Care Provider Encounter Details Date Type Department Care Team (Late st Contact Info) Description 08/20/2003 Outpatient Historical [facility] Internal Medicine [place] [address] [place] [address] Jhonathan Rendon MD [address] [place] [address] Social History Tobacco Use Types Packs/Day Years Used Date Smoking Tobacco: Never Assessed Comments Unknown Sex and Gender Information Value Date Recorded Sex Assigned at Not on file Legal Sex Female 3:30 AM GUEST EXPERIENCE CAPTAIN Gender Identity Not on file Sexual Orientation Not on file documented as of this encounter Plan of Treatment Not on file documented as of this encounter Visit Diagnoses Not on filedocumented in this encounter Additional Health Concerns Infection Onset Date Last Indicated Resolved Time R/O Respiratory 05/13/2024 05/13/2024 05/13/2024 3 :49 AM CDT documented as of this encounter Care Teams Airplane Mechanic Relationship Specialty [place] [address] [place] [address] PCP - General Internal Medicine 02/18/17 07/02/24 documented as of this encounter
--- OUTSIDE RECORDS SUMMARY | 2024-10-05 19:57 | XMS_ITS | Encounter Summary ---
Author Organization [facility] Address [address] [place] [address] Care Team Providers Care Bookseamer Blindstitch Name Role Phone Jhonathan Kim MD Primary Care Provider Encounter Details Date Type Department Care Team (Late st Contact Info) Description 04/13/2005 Outpatient Historical [facility] Internal Medicine [place] [address] [place] [address] Jhonathan Rendon MD [address] [place] [address] Social History Tobacco Use Types Packs/Day Years Used Date Smoking Tobacco: Never Assessed Comments Unknown Sex and Gender Information Value Date Recorded Sex Assigned at Not on file Legal Sex Female 3:30 AM COAT EXAMINER Gender Identity Not on file Sexual Orientation Not on file documented as of this encounter Plan of Treatment Not on file documented as of this encounter Visit Diagnoses Not on filedocumented in this encounter Additional Health Concerns Infection Onset Date Last Indicated Resolved Time R/O Respiratory 05/13/2024 05/13/2024 05/13/2024 3 :49 AM CDT documented as of this encounter Care Teams Bookseamer Blindstitch Relationship Specialty [place] [address] [place] [address] PCP - General Internal Medicine 02/18/17 07/02/24 documented as of this encounter
--- OUTSIDE RECORDS SUMMARY | 2024-10-05 19:57 | XMS_ITS | Encounter Summary ---
Author Organization [facility] Address [address] [place] [address] Care Team Providers Care Rn Labor Delivery Name Role Phone Jhonathan Kim MD Primary Care Provider Encounter Details Date Type Department Care Team (Late st Contact Info) Description 07/02/2008 Outpatient Historical [facility] Jhonathan Rendon MD [address] [place] [address] Impaired Fasting Glucose Social History Tobacco Use Types Packs/Day Years Used Date Smoking Tobacco: Former Cigarettes Q uit: 07/25/1997 Alcohol Use Standard Drinks/Week Comments Not Asked 0 (1 standard drink = 0.6 oz pur e alcohol) Comments No Sex and Gender Information Value Date Recorded Sex Assigned at Not on file Legal Sex Female 3:30 AM BASKET BOTTOM 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 Gender Identity Not on file [...] documented as of this encounter Care Teams Rn Labor Delivery Relationship Specialty [place] [address] [place] [address] PCP - General Internal Medicine 02/18/17 07/02/24 documented as of this encounter
--- OUTSIDE RECORDS SUMMARY | 2024-10-05 19:57 | XMS_ITS | Encounter Summary ---
Author Organization [facility] Address [address] [place] [address] Care Team Providers Care Accounting Supervisor Name Role Phone Jhonathan Kim MD Primary Care Provider Encounter Details Date Type Department Care Team (Late st Contact Info) Description 08/31/2005 Outpatient Historical [facility] Internal Medicine [place] [address] [place] [address] Jhonathan Rendon MD [address] [place] [address] Social History Tobacco Use Types Packs/Day Years Used Date Smoking Tobacco: Never Assessed Comments Unknown Sex and Gender Information Value Date Recorded Sex Assigned at Not on file Legal Sex Female 3:30 AM PORTFOLIO ADMINISTRATOR Gender Identity Not on file Sexual Orientation Not on file documented as of this encounter Plan of Treatment Not on file documented as of this encounter Visit Diagnoses Not on filedocumented in this encounter Additional Health Concerns Infection Onset Date Last Indicated Resolved Time R/O Respiratory 05/13/2024 05/13/2024 05/13/2024 3 :49 AM CDT documented as of this encounter Care Teams Accounting Supervisor Relationship Specialty [place] [address] [place] [address] PCP - General Internal Medicine 02/18/17 07/02/24 documented as of this encounter
--- OUTSIDE RECORDS SUMMARY | 2024-10-05 19:57 | XMS_ITS | Encounter Summary ---
Author Organization [facility] Address [address] [place] [address] Care Team Providers Care Retirement Specialist Name Role Phone Jhonathan Kim MD Primary Care Provider Encounter Details Date Type Department Care Team (Late st Contact Info) Description 12/20/2000 Outpatient Historical [facility] Internal Medicine [place] [address] [place] [address] Jhonathan Rendon MD [address] [place] [address] Social History Tobacco Use Types Packs/Day Years Used Date Smoking Tobacco: Never Assessed Comments Unknown Sex and Gender Information Value Date Recorded Sex Assigned at Not on file Legal Sex Female 3:30 AM VALVING 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 Gender Identity Not on file Sexual Orientation Not on file documented as of this encounter Plan of Treatment Not on file documented as of this encounter Visit Diagnoses Not on filedocumented in this encounter Additional Health Concerns Infection Onset Date Last Indicated Resolved Time R/O Respiratory 05/13/2024 05/13/2024 05/13/2024 3 :49 AM CDT documented as of this encounter Care Teams Retirement Specialist Relationship Specialty [place] [address] [place] [address] PCP - General Internal Medicine 02/18/17 07/02/24 documented as of this encounter
--- OUTSIDE RECORDS SUMMARY | 2024-10-05 19:57 | XMS_ITS | Encounter Summary ---
Author Organization [facility] Address [address] [place] [address] Care Team Providers Care Crackling Press Operator Name Role Phone Jhonathan Kim MD Primary Care Provider Encounter Details Date Type Department Care Team (Late st Contact Info) Description 06/09/2006 Outpatient [facility] [address] [address] [place] [address] Freddy Jordan MD [address] [place] [address] Social History Tobacco Use Types Packs/Day Years Used Date Smoking Tobacco: Never Assessed Comments Unknown Sex and Gender Information Value Date Recorded Sex Assigned at Not on file Legal Sex Female 3:30 AM RUBBER ROLLER GRINDER OPERATOR Gender Identity Not on file Sexual Orientation Not on file documented as of this encounter Plan of Treatment Not on file documented as of this encounter Visit Diagnoses Not on filedocumented in this encounter Additional Health Concerns Infection Onset Date Last Indicated Resolved Time R/O Respiratory 05/13/2024 05/13/2024 05/13/2024 3 :49 AM CDT documented as of this encounter Care Teams Crackling Press Operator Relationship Specialty [place] [address] [place] [id number] PCP - General Internal Medicine 02/18/17 07/02/24 documented as of this encounter
--- OUTSIDE RECORDS SUMMARY | 2024-10-05 19:57 | XMS_ITS | Encounter Summary ---
Author Organization [facility] Address [address] [place] [address] Care Team Providers Care Performance Solutions Specialist Name Role Phone Jhonathan Kim MD Primary Care Provider Encounter Details Date Type Department Care Team (Late st Contact Info) Description 06/14/2006 Outpatient [facility] [address] [place] [address] [place] [address] [place] [address] Social History Tobacco Use Types Packs/Day Years Used Date Smoking Tobacco: Never Assessed Comments Unknown Sex and Gender Information Value Date Recorded Sex Assigned at Not on file Legal Sex Female 3:30 AM ENGRAVING OPERATOR Gender Identity Not on file Sexual Orientation Not on file documented as of this encounter Plan of Treatment Not on file documented as of this encounter Visit Diagnoses Not on filedocumented in this encounter Additional Health Concerns Infection Onset Date Last Indicated Resolved Time R/O Respiratory 05/13/2024 05/13/2024 05/13/2024 3 :49 AM CDT documented as of this encounter Care Teams Performance Solutions Specialist Relationship Specialty [place] [address] [facility] [place] [address] PCP - General Internal Medicine 02/18/17 07/02/24 documented as of this encounter
--- OUTSIDE RECORDS SUMMARY | 2024-10-05 19:57 | XMS_ITS | Encounter Summary ---
Author Organization [facility] Address [address] [place] [address] Care Team Providers Care Director Data Name Role Phone Jhonathan Kim MD Primary Care Provider Encounter Details Date Type Department Care Team (Late st Contact Info) Description 04/21/2007 Outpatient Historical [facility] Internal Medicine [place] [address] [place] [address] Jhonathan Rendon MD [address] [place] [address] Social History Tobacco Use Types Packs/Day Years Used Date Smoking Tobacco: Never Assessed Comments No Sex and Gender Information Value Date Recorded Sex Assigned at Not on file Legal Sex Female 3:30 AM RN CASE MANAGER HOSPICE Gender Identity Not on file Sexual Orientation Not on file documented as of this encounter Plan of Treatment Not on file documented as of this encounter Visit Diagnoses Not on filedocumented in this encounter Additional Health Concerns Infection Onset Date Last Indicated Resolved Time R/O Respiratory 05/13/2024 05/13/2024 05/13/2024 3 :49 AM CDT documented as of this encounter Care Teams Director Data Relationship Specialty [place] [address] [place] [address] PCP - General Internal Medicine 02/18/17 07/02/24 documented as of this encounter
--- OUTSIDE RECORDS SUMMARY | 2024-10-05 19:57 | XMS_ITS | Encounter Summary ---
Author Organization [facility] Address [address] [place] [address] Care Team Providers Care Egg Sorter Name Role Phone Jhonathan Kim MD Primary Care Provider Encounter Details Date Type Department Care Team (Latest Contact Info) Description 06/27/2006 Outpatient [facility] [address] [place] [address] Jhonathan Rendon MD [address] [place] [address] Unspecified Venous (Peripheral) Insufficiency (Primary Dx) Social History Tobacco Use Types Packs/Day Years Used Date Smoking Tobacco: Never Assessed Comments Unknown Sex and Gender Information Value Date Recorded Sex Assigned at Not on file Legal Sex Female 3:30 AM CORN DETASSELER Gender Identity Not on file Sexual Orientation [...] documented as of this encounter Care Teams Egg Sorter Relationship Specialty [place] [address] [place] [address] PCP - General Internal Medicine 02/18/17 07/02/24 documented as of this encounter
--- OUTSIDE RECORDS SUMMARY | 2024-10-05 19:57 | XMS_ITS | Encounter Summary ---
Author Organization [facility] Address [address] [place] [address] Care Team Providers Care Dance Costume Designer Name Role Phone Jhonathan Kim MD Primary Care Provider Encounter Details Date Type Department Care Team (Late st Contact Info) Description 12/05/1998 Outpatient Historical [facility] Internal Medicine [place] [address] [place] [address] Jhonathan Rendon MD [address] [place] [address] Social History Tobacco Use Types Packs/Day Years Used Date Smoking Tobacco: Never Assessed Comments Unknown Sex and Gender Information Value Date Recorded Sex Assigned at Not on file Legal Sex Female 3:30 AM GEOSCIENCE SPECIALIST Gender Identity Not on file Sexual Orientation Not on file documented as of this encounter Plan of Treatment Not on file documented as of this encounter Visit Diagnoses Not on filedocumented in this encounter Additional Health Concerns Infection Onset Date Last Indicated Resolved Time R/O Respiratory 05/13/2024 05/13/2024 05/13/2024 3 :49 AM CDT documented as of this encounter Care Teams Dance Costume Designer Relationship Specialty [place] [address] [place] [address] PCP - General Internal Medicine 02/18/17 07/02/24 documented as of this encounter
--- OUTSIDE RECORDS SUMMARY | 2024-10-05 19:57 | XMS_ITS | Encounter Summary ---
Author Organization [facility] Address [address] [place] [address] Care Team Providers Care Penetration Tester Name Role Phone Jhonathan Kim MD Primary Care Provider Encounter Details Date Type Department Care Team (Late st Contact Info) Description 12/25/1999 Outpatient Historical [facility] Internal Medicine [place] [address] [place] [address] Jhonathan Rendon MD [address] [place] [address] Social History Tobacco Use Types Packs/Day Years Used Date Smoking Tobacco: Never Assessed Comments Unknown Sex and Gender Information Value Date Recorded Sex Assigned at Not on file Legal Sex Female 3:30 AM LEASING ASSISTANT Gender Identity Not on file Sexual Orientation Not on file documented as of this encounter Plan of Treatment Not on file documented as of this encounter Visit Diagnoses Not on filedocumented in this encounter Additional Health Concerns Infection Onset Date Last Indicated Resolved Time R/O Respiratory 05/13/2024 05/13/2024 05/13/2024 3 :49 AM CDT documented as of this encounter Care Teams Penetration Tester Relationship Specialty [place] [address] [place] [address] PCP - General Internal Medicine 02/18/17 07/02/24 documented as of this encounter
--- OUTSIDE RECORDS SUMMARY | 2024-10-05 19:57 | XMS_ITS | Encounter Summary ---
Author Organization [facility] Address [address] [place] [address] Care Team Providers Care Water Tester Name Role Phone Jhonathan Kim MD Primary Care Provider Encounter Details Date Type Department Care Team (Late st Contact Info) Description 06/15/2002 Outpatient Historical [facility] Internal Medicine [place] [address] [place] [address] Jhonathan Rendon MD [address] [place] [address] Social History Tobacco Use Types Packs/Day Years Used Date Smoking Tobacco: Never Assessed Comments Unknown Sex and Gender Information Value Date Recorded Sex Assigned at Not on file Legal Sex Female 3:30 AM HOOP BENDING 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 Gender Identity Not on file Sexual Orientation Not on file documented as of this encounter Plan of Treatment Not on file documented as of this encounter Visit Diagnoses Not on filedocumented in this encounter Additional Health Concerns Infection Onset Date Last Indicated Resolved Time R/O Respiratory 05/13/2024 05/13/2024 05/13/2024 3 :49 AM CDT documented as of this encounter Care Teams Water Tester Relationship Specialty [place] [address] [place] [address] PCP - General Internal Medicine 02/18/17 07/02/24 documented as of this encounter
--- OUTSIDE RECORDS SUMMARY | 2024-10-05 19:57 | XMS_ITS | Encounter Summary ---
Author Organization [facility] Address [address] [place] [address] Care Team Providers Care Two Way Radio Technician Name Role Phone Jhonathan Kim MD Primary Care Provider Encounter Details Date Type Department Care Team (Late st Contact Info) Description 07/16/2005 Outpatient Historical [facility] Internal Medicine [place] [address] [place] [address] Jhonathan Rendon MD [address] [place] [address] Social History Tobacco Use Types Packs/Day Years Used Date Smoking Tobacco: Never Assessed Comments Unknown Sex and Gender Information Value Date Recorded Sex Assigned at Not on file Legal Sex Female 3:30 AM X RAY INSPECTOR Gender Identity Not on file Sexual Orientation Not on file documented as of this encounter Plan of Treatment Not on file documented as of this encounter Visit Diagnoses Not on filedocumented in this encounter Additional Health Concerns Infection Onset Date Last Indicated Resolved Time R/O Respiratory 05/13/2024 05/13/2024 05/13/2024 3 :49 AM CDT documented as of this encounter Care Teams Two Way Radio Technician Relationship Specialty [place] [address] [place] [address] PCP - General Internal Medicine 02/18/17 07/02/24 documented as of this encounter
--- OUTSIDE RECORDS SUMMARY | 2024-10-05 19:57 | XMS_ITS | Encounter Summary ---
Author Organization [facility] Address [address] [place] [address] Care Team Providers Care Communications Strategist Name Role Phone Jhonathan Kim MD Primary Care Provider Encounter Details Date Type Department Care Team (Late st Contact Info) Description 06/06/2007 Outpatient Historical [facility] Internal Medicine [place] [address] [place] [address] Jhonathan Rendon MD [address] [place] [address] Social History Tobacco Use Types Packs/Day Years Used Date Smoking Tobacco: Never Assessed Comments No Sex and Gender Information Value Date Recorded Sex Assigned at Not on file Legal Sex Female 3:30 AM TURRET PRESS OPERATOR Gender Identity Not on file Sexual Orientation Not on file documented as of this encounter Plan of Treatment Not on file documented as of this encounter Visit Diagnoses Not on filedocumented in this encounter Additional Health Concerns Infection Onset Date Last Indicated Resolved Time R/O Respiratory 05/13/2024 05/13/2024 05/13/2024 3 :49 AM CDT documented as of this encounter Care Teams Communications Strategist Relationship Specialty Start [place] [address] [place] [address] PCP - General Internal Medicine 02/18/17 07/02/24 documented as of this encounter
--- OUTSIDE RECORDS SUMMARY | 2024-10-05 19:57 | XMS_ITS | Encounter Summary ---
Author Organization [facility] Address [address] [place] [address] Care Team Providers Care Technology Applications Consultant Name Role Phone Jhonathan Kim MD Primary Care Provider Encounter Details Date Type Department Care Team (Late st Contact Info) Description 07/03/2001 Outpatient Historical [facility] Internal Medicine [place] [address] [place] [address] Jhonathan Rendon MD [address] [place] [address] Social History Tobacco Use Types Packs/Day Years Used Date Smoking Tobacco: Never Assessed Comments Unknown Sex and Gender Information Value Date Recorded Sex Assigned at Not on file Legal Sex Female 3:30 AM COW TRIMMER Gender Identity Not on file Sexual Orientation Not on file documented as of this encounter Plan of Treatment Not on file documented as of this encounter Visit Diagnoses Not on filedocumented in this encounter Additional Health Concerns Infection Onset Date Last Indicated Resolved Time R/O Respiratory 05/13/2024 05/13/2024 05/13/2024 3 :49 AM CDT documented as of this encounter Care Teams Technology Applications Consultant Relationship Specialty [place] [address] [place] [address] PCP - General Internal Medicine 02/18/17 07/02/24 documented as of this encounter
--- OUTSIDE RECORDS SUMMARY | 2024-10-05 19:57 | XMS_ITS | Encounter Summary ---
Author Organization [facility] Address [address] [place] [address] Care Team Providers Care Spice Room Worker Name Role Phone Jhonathan Kim MD Primary Care Provider Encounter Details Date Type Department Care Team (Late st Contact Info) Description 06/02/2006 Outpatient [facility] [id number] [place] [phone] Noah Santos MD [address] [place] [phone] Social History Tobacco Use Types Packs/Day Years Used Date Smoking Tobacco: Never Assessed Comments Unknown Sex and Gender Information Value Date Recorded Sex Assigned at Not on file Legal Sex Female 3:30 AM EXERCISE SCIENCE INTERNSHIP Gender Identity Not on file Sexual Orientation Not on file documented as of this encounter Plan of Treatment Not on file documented as of this encounter Visit Diagnoses Not on filedocumented in this encounter Additional Health Concerns Infection Onset Date Last Indicated Resolved Time R/O Respiratory 05/13/2024 05/13/2024 05/13/2024 3 :49 AM CDT documented as of this encounter Care Teams Spice Room Worker Relationship Specialty [place] [address] [place] [address] PCP - General Internal Medicine 02/18/17 07/02/24 documented as of this encounter
--- OUTSIDE RECORDS SUMMARY | 2024-10-05 19:57 | XMS_ITS | Encounter Summary ---
Author Organization [facility] Address [address] [place] [address] Care Team Providers Care Can Closing Machine Operator Name Role Phone Jhonathan Kim MD Primary Care Provider Encounter Details Date Type Department Care Team (Late st Contact Info) Description 11/29/2000 Outpatient Historical [facility] Internal Medicine [place] [address] [place] [address] Jhonathan Rendon MD [address] [place] [address] Social History Tobacco Use Types Packs/Day Years Used Date Smoking Tobacco: Never Assessed Comments Unknown Sex and Gender Information Value Date Recorded Sex Assigned at Not on file Legal Sex Female 3:30 AM BUS GIRL Gender Identity Not on file Sexual Orientation Not on file documented as of this encounter Plan of Treatment Not on file documented as of this encounter Visit Diagnoses Not on filedocumented in this encounter Additional Health Concerns Infection Onset Date Last Indicated Resolved Time R/O Respiratory 05/13/2024 05/13/2024 05/13/2024 3 :49 AM CDT documented as of this encounter Care Teams Can Closing Machine Operator Relationship Specialty [place] [address] [place] [address] PCP - General Internal Medicine 02/18/17 07/02/24 documented as of this encounter
--- OUTSIDE RECORDS SUMMARY | 2024-10-05 19:57 | XMS_ITS | Encounter Summary ---
Author Organization [facility] Address [address] [place] [address] Care Team Providers Care Beauty School Instructor Name Role Phone Jhonathan Kim MD Primary Care Provider Encounter Details Date Type Department Care Team (Late st Contact Info) Description 10/28/2000 Outpatient Historical [facility] Internal Medicine [place] [address] [place] [address] Jhonathan Rendon MD [address] [place] [address] Social History Tobacco Use Types Packs/Day Years Used Date Smoking Tobacco: Never Assessed Comments Unknown Sex and Gender Information Value Date Recorded Sex Assigned at Not on file Legal Sex Female 3:30 AM SNATH HANDLE ASSEMBLER Gender Identity Not on file Sexual Orientation Not on file documented as of this encounter Plan of Treatment Not on file documented as of this encounter Visit Diagnoses Not on filedocumented in this encounter Additional Health Concerns Infection Onset Date Last Indicated Resolved Time R/O Respiratory 05/13/2024 05/13/2024 05/13/2024 3 :49 AM CDT documented as of this encounter Care Teams Beauty School Instructor Relationship Specialty [place] [address] [place] [address] PCP - General Internal Medicine 02/18/17 07/02/24 documented as of this encounter
--- OUTSIDE RECORDS SUMMARY | 2024-10-05 19:57 | XMS_ITS | Encounter Summary ---
Author Organization [facility] Address [address] [place] [address] Care Team Providers Care Airplane Pilot Supervisor Name Role Phone Jhonathan Kim MD Primary Care Provider Encounter Details Date Type Department Care Team (Late st Contact Info) Description 10/17/2000 Outpatient Historical [facility] Internal Medicine [place] [address] [place] [address] Jhonathan Rendon MD [address] [place] [address] Social History Tobacco Use Types Packs/Day Years Used Date Smoking Tobacco: Never Assessed Comments Unknown Sex and Gender Information Value Date Recorded Sex Assigned at Not on file Legal Sex Female 3:30 AM ELECTRICAL JOURNEYMAN Gender Identity Not on file Sexual Orientation Not on file documented as of this encounter Plan of Treatment Not on file documented as of this encounter Visit Diagnoses Not on filedocumented in this encounter Additional Health Concerns Infection Onset Date Last Indicated Resolved Time R/O Respiratory 05/13/2024 05/13/2024 05/13/2024 3 :49 AM CDT documented as of this encounter Care Teams Airplane Pilot Supervisor Relationship Specialty [place] [address] [place] [address] PCP - General Internal Medicine 02/18/17 07/02/24 documented as of this encounter
--- OUTSIDE RECORDS SUMMARY | 2024-10-05 19:57 | XMS_ITS | Encounter Summary ---
Author Organization [facility] Address 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
--- OUTSIDE RECORDS SUMMARY | 2024-10-05 19:57 | XMS_ITS | Encounter Summary ---
Author Organization [facility] Address [address] [place] [address] Care Team Providers Care Decorating Kiln Operator Name Role Phone Jhonathan Kim MD Primary Care Provider Encounter Details Date Type Department Care Team (Latest Contact Info) Description 06/09/2006 Outpatient [facility] - [facility] [address] [place] [phone] Jhonathan Rendon MD [address] [place] [address] Unspecified Venous (Peripheral) Insufficiency (Primary Dx) Social History Tobacco Use Types Packs/Day Years Used Date Smoking Tobacco: Never Assessed Comments Unknown Sex and Gender Information Value Date Recorded Sex Assigned at Not on file Legal Sex Female 3:[address] Gender Identity Not on file Sexual Orientation [...] documented as of this encounter Care Teams Decorating Kiln Operator Relationship Specialty [place] [address] [place] [phone] PCP - General Internal Medicine 02/18/17 07/02/24 documented as of this encounter
--- OUTSIDE RECORDS SUMMARY | 2024-10-05 19:57 | XMS_ITS | Encounter Summary ---
Author Organization [facility] Address [address] [place] [address] Care Team Providers Care Engineering Agent Name Role Phone Jhonathan Kim MD Primary Care Provider Encounter Details Date Type Department Care Team (Late st Contact Info) Description 07/13/1999 Outpatient Historical [facility] Internal Medicine [place] [address] [place] [address] Jhonathan Rendon MD [address] [place] [address] Social History Tobacco Use Types Packs/Day Years Used Date Smoking Tobacco: Never Assessed Comments Unknown Sex and Gender Information Value Date Recorded Sex Assigned at Not on file Legal Sex Female 3:30 AM PRESS BREAKER Gender Identity Not on file Sexual Orientation Not on file documented as of this encounter Plan of Treatment Not on file documented as of this encounter Visit Diagnoses Not on filedocumented in this encounter Additional Health Concerns Infection Onset Date Last Indicated Resolved Time R/O Respiratory 05/13/2024 05/13/2024 05/13/2024 3 :49 AM CDT documented as of this encounter Care Teams Engineering Agent Relationship Specialty [place] [address] [place] [address] PCP - General Internal Medicine 02/18/17 07/02/24 documented as of this encounter
--- OUTSIDE RECORDS SUMMARY | 2024-10-05 19:57 | XMS_ITS | Encounter Summary ---
Author Organization [facility] Address [address] [place] [address] Care Team Providers Care Radiology Teacher Name Role Phone Jhonathan Kim MD Primary Care Provider Encounter Details Date Type Department Care Team (Latest Contact Info) Description 05/26/2006 Outpatient [facility] - [facility] [address] [place] [phone] Jhonathan Rendon MD [address] [place] [address] Unspecified Venous (Peripheral) Insufficiency (Primary Dx) Social History Tobacco Use Types Packs/Day Years Used Date Smoking Tobacco: Never Assessed Comments Unknown Sex and Gender Information Value Date Recorded Sex Assigned at Not on file Legal Sex Female 3:30 AM COACH OPERATOR Gender Identity Not on file Sexual [...] documented as of this encounter Care Teams Radiology Teacher Relationship Specialty [place] [address] [place] [phone] PCP - General Internal Medicine 02/18/17 07/02/24 documented as of this encounter
--- OUTSIDE RECORDS SUMMARY | 2024-10-05 19:57 | XMS_ITS | Encounter Summary ---
Author Organization [facility] Address [address] [place] [address] Care Team Providers Care Gas Plant Worker Name Role Phone Jhonathan Kim MD Primary Care Provider Encounter Details Date Type Department Care Team (Late st Contact Info) Description 06/27/2006 Outpatient [facility] [address] [place] [address] [place] [address] [place] [address] Social History Tobacco Use Types Packs/Day Years Used Date Smoking Tobacco: Never Assessed Comments Unknown Sex and Gender Information Value Date Recorded Sex Assigned at Not on file Legal Sex Female 3:30 AM 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 [address] PCP - General Internal Medicine 02/18/17 07/02/24 documented as of this encounter
--- OUTSIDE RECORDS SUMMARY | 2024-10-05 19:57 | XMS_ITS | Encounter Summary ---
Author Organization [facility] Address [address] [place] [address] Care Team Providers Care Braider Tender Name Role Phone Jhonathan Kim MD Primary Care Provider Encounter Details Date Type Department Care Team (Late st Contact Info) Description 12/14/2002 Outpatient Historical [facility] Internal Medicine [place] [address] [place] [address] Jhonathan Rendon MD [address] [place] [address] Social History Tobacco Use Types Packs/Day Years Used Date Smoking Tobacco: Never Assessed Comments Unknown Sex and Gender Information Value Date Recorded Sex Assigned at Not on file Legal Sex Female 3:30 AM PROPERTY FIELD ADJUSTER Gender Identity Not on file Sexual Orientation Not on file documented as of this encounter Plan of Treatment Not on file documented as of this encounter Visit Diagnoses Not on filedocumented in this encounter Additional Health Concerns Infection Onset Date Last Indicated Resolved Time R/O Respiratory 05/13/2024 05/13/2024 05/13/2024 3 :49 AM CDT documented as of this encounter Care Teams Braider Tender Relationship Specialty [place] [address] [place] [address] PCP - General Internal Medicine 02/18/17 07/02/24 documented as of this encounter
--- OUTSIDE RECORDS SUMMARY | 2024-10-05 19:57 | XMS_ITS | Encounter Summary ---
Author Organization [facility] Address [address] [place] [address] Care Team Providers Care Credentials Specialist Name Role Phone Jhonathan Kim MD Primary Care Provider Encounter Details Date Type Department Care Team (Late st Contact Info) Description 07/02/2004 Outpatient Historical [facility] Internal Medicine [place] [address] [place] [address] Jhonathan Rendon MD [address] [place] [address] Social History Tobacco Use Types Packs/Day Years Used Date Smoking Tobacco: Never Assessed Comments Unknown Sex and Gender Information Value Date Recorded Sex Assigned at Not on file Legal Sex Female 3:30 AM WAREHOUSE ATTENDANT Gender Identity Not on file Sexual Orientation Not on file documented as of this encounter Plan of Treatment Not on file documented as of this encounter Visit Diagnoses Not on filedocumented in this encounter Additional Health Concerns Infection Onset Date Last Indicated Resolved Time R/O Respiratory 05/13/2024 05/13/2024 05/13/2024 3 :49 AM CDT documented as of this encounter Care Teams Credentials Specialist Relationship Specialty [place] [address] [place] [address] PCP - General Internal Medicine 02/18/17 07/02/24 documented as of this encounter
--- OUTSIDE RECORDS SUMMARY | 2024-10-05 19:57 | XMS_ITS | Encounter Summary ---
Author Organization [facility] Address [address] [place] [address] Care Team Providers Care Cad Designer Name Role Phone Jhonathan Kim MD Primary Care Provider Encounter Details Date Type Department Care Team (Late st Contact Info) Description 03/06/1999 Outpatient Historical [facility] Internal Medicine [place] [address] [place] [address] Jhonathan Rendon MD [address] [place] [address] Social History Tobacco Use Types Packs/Day Years Used Date Smoking Tobacco: Never Assessed Comments Unknown Sex and Gender Information Value Date Recorded Sex Assigned at Not on file Legal Sex Female 3:30 AM INSTRUCTIONAL FACILITATOR Gender Identity Not on file Sexual Orientation Not on file documented as of this encounter Plan of Treatment Not on file documented as of this encounter Visit Diagnoses Not on filedocumented in this encounter Additional Health Concerns Infection Onset Date Last Indicated Resolved Time R/O Respiratory 05/13/2024 05/13/2024 05/13/2024 3 :49 AM CDT documented as of this encounter Care Teams Cad Designer Relationship Specialty [place] [address] [place] [address] PCP - General Internal Medicine 02/18/17 07/02/24 documented as of this encounter
--- OUTSIDE RECORDS SUMMARY | 2024-10-05 19:57 | XMS_ITS | Encounter Summary ---
Author [facility] Address [address] [place] [address] Care Team Providers Care Manager Payroll Name Role Phone Jhonathan Kim MD Primary Care Provider Encounter Details Date Type Department Care Team (Late st Contact Info) Description 02/20/2001 Outpatient Historical [facility] [place]athan Rendon MD [address] [place] [address] Sciatica (Primary Dx) Social History Tobacco Use Types Packs/Day Years Used Date Smoking Tobacco: Never Assessed Comments Unknown Sex and Gender Information Value Date Recorded Sex Assigned at Not on file Legal Sex Female 3:30 AM LINE WALKER Gender Identity Not on file Sexual Orientation Not on file documented as of this encounter Plan of Treatment Not on file documented as of this encounter Visit Diagnoses Diagnosis Sciatica- Primary documented in this encounter Additional Health Concerns Infection Onset Date Last Indicated Resolved Time R/O Respiratory 05/13/2024 05/13/2024 05/13/2024 3 :49 AM CDT documented as of this encounter Care Teams Manager Payroll Relationship Specialty [place] [address] [place] [address] PCP - General Internal Medicine 02/18/17 07/02/24 documented as of this encounter
--- OUTSIDE RECORDS SUMMARY | 2024-10-05 19:57 | XMS_ITS | Encounter Summary ---
Author Organization [facility] Address [address] [place] [address] Care Team Providers Care Laborer Marine Terminal Name Role Phone Jhonathan Kim MD Primary Care Provider Encounter Details Date Type Department Care Team (Late st Contact Info) Description 06/12/1999 Outpatient Historical [facility] Internal Medicine [place] [address] [place] [address] Jhonathan Rendon MD [address] [place] [address] Social History Tobacco Use Types Packs/Day Years Used Date Smoking Tobacco: Never Assessed Comments Unknown Sex and Gender Information Value Date Recorded Sex Assigned at Not on file Legal Sex Female 3: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 Gender Identity Not on file Sexual Orientation Not on file documented as of this encounter Plan of Treatment Not on file documented as of this encounter Visit Diagnoses Not on filedocumented in this encounter Additional Health Concerns Infection Onset Date Last Indicated Resolved Time R/O Respiratory 05/13/2024 05/13/2024 05/13/2024 3 :49 AM CDT documented as of this encounter Care Teams Laborer Marine Terminal Relationship Specialty [place] [address] [place] [address] PCP - General Internal Medicine 02/18/17 07/02/24 documented as of this encounter
--- OUTSIDE RECORDS SUMMARY | 2024-10-05 19:57 | XMS_ITS | Encounter Summary ---
Author Organization [facility] Address [address] [place] [address] Care Team Providers Care Fence Builder Name Role Phone Jhonathan Kim MD Primary Care Provider Encounter Details Date Type Department Care Team (Late st Contact Info) Description 08/08/2000 Outpatient Historical [facility] Internal Medicine [place] [address] [place] [address] Jhonathan Rendon MD [address] [place] [address] Social History Tobacco Use Types Packs/Day Years Used Date Smoking Tobacco: Never Assessed Comments Unknown Sex and Gender Information Value Date Recorded Sex Assigned at Not on file Legal Sex Female 3:30 AM ENTERTAINER & COMIC Gender Identity Not on file Sexual Orientation Not on file documented as of this encounter Plan of Treatment Not on file documented as of this encounter Visit Diagnoses Not on filedocumented in this encounter Additional Health Concerns Infection Onset Date Last Indicated Resolved Time R/O Respiratory 05/13/2024 05/13/2024 05/13/2024 3 :49 AM CDT documented as of this encounter Care Teams Fence Builder Relationship Specialty [place] [address] [place] [address] PCP - General Internal Medicine 02/18/17 07/02/24 documented as of this encounter
--- OUTSIDE RECORDS SUMMARY | 2024-10-05 19:57 | XMS_ITS | Encounter Summary ---
Author Organization [facility] Address [address] [place] [address] Care Team Providers Care Flight Teacher Name Role Phone Jhonathan Kim MD Primary Care Provider Encounter Details Date Type Department Care Team (Latest Contact Info) Description 06/14/2006 Outpatient [facility] [address] [place] [address] Jhonathan Rendon MD [address] [place] [address] Unspecified Venous (Peripheral) Insufficiency (Primary Dx) Social History Tobacco Use Types Packs/Day Years Used Date Smoking Tobacco: Never Assessed Comments Unknown Sex and Gender Information Value Date Recorded Sex Assigned at Not on file Legal Sex Female 3:30 AM PORTFOLIO ARCHITECT Gender Identity Not on file Sexual [...] documented as of this encounter Care Teams Flight Teacher Relationship Specialty [place] [address] [place] [phone] PCP - General Internal Medicine 02/18/17 07/02/24 documented as of this encounter
--- OUTSIDE RECORDS SUMMARY | 2024-10-05 19:57 | XMS_ITS | Encounter Summary ---
Author Organization [facility] Address [address] [place] [address] Care Team Providers Care Tinning Machine Set Up Operator Name Role Phone Jhonathan Kim MD Primary Care Provider Encounter Details Date Type Department Care Team (Late st Contact Info) Description 03/23/2004 Outpatient Historical [facility] Internal Medicine [place] [address] [place] [address] Jhonathan Rendon MD [address] [place] [address] Social History Tobacco Use Types Packs/Day Years Used Date Smoking Tobacco: Never Assessed Comments Unknown Sex and Gender Information Value Date Recorded Sex Assigned at Not on file Legal Sex Female 3:30 AM REVENUE LIAISON Gender Identity Not on file Sexual Orientation Not on file documented as of this encounter Plan of Treatment Not on file documented as of this encounter Visit Diagnoses Not on filedocumented in this encounter Additional Health Concerns Infection Onset Date Last Indicated Resolved Time R/O Respiratory 05/13/2024 05/13/2024 05/13/2024 3 :49 AM CDT documented as of this encounter Care Teams Tinning Machine Set Up Operator Relationship Specialty [place] [address] [place] [address] PCP - General Internal Medicine 02/18/17 07/02/24 documented as of this encounter
--- OUTSIDE RECORDS SUMMARY | 2024-10-05 19:57 | XMS_ITS | Encounter Summary ---
Author Organization [facility] Address [address] [place] [address] Care Team Providers Care Storage Administrator Name Role Phone Jhonathan Kim MD Primary Care Provider Encounter Details Date Type Department Care Team (Late st Contact Info) Description 04/13/2006 Outpatient Historical [facility] Internal Medicine [place] [address] [place] [address] Jhonathan Rendon MD [address] [place] [address] Social History Tobacco Use Types Packs/Day Years Used Date Smoking Tobacco: Never Assessed Comments Unknown Sex and Gender Information Value Date Recorded Sex Assigned at Not on file Legal Sex Female 3:30 AM POST TRONIC 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 Gender Identity Not on file Sexual Orientation Not on file documented as of this encounter Plan of Treatment Not on file documented as of this encounter Visit Diagnoses Not on filedocumented in this encounter Additional Health Concerns Infection Onset Date Last Indicated Resolved Time R/O Respiratory 05/13/2024 05/13/2024 05/13/2024 3 :49 AM CDT documented as of this encounter Care Teams Storage Administrator Relationship Specialty [place] [address] [place] [address] PCP - General Internal Medicine 02/18/17 07/02/24 documented as of this encounter
--- OUTSIDE RECORDS SUMMARY | 2024-10-05 19:57 | XMS_ITS | Encounter Summary ---
Author Organization [facility] Address [address] [place] [address] Care Team Providers Care Operator Maintainer Name Role Phone Jhonathan Kim MD Primary Care Provider Encounter Details Date Type Department Care Team (Latest Contact Info) Description 12/06/2000 Outpatient Historical [facility] Jhonathan Rendon MD [address] [place] [address] Other dyspnea and respiratory abnormality (Primary Dx) Social History Tobacco Use Types Packs/Day Years Used Date Smoking Tobacco: Never Assessed Comments Unknown Sex and Gender Information Value Date Recorded Sex Assigned at Not on file Legal Sex Female 3:30 AM FISH NET MAKER Gender Identity Not on file Sexual [...] documented as of this encounter Care Teams Operator Maintainer Relationship Specialty [place] [address] [place] [phone] PCP - General Internal Medicine 02/18/17 07/02/24 documented as of this encounter
--- OUTSIDE RECORDS SUMMARY | 2024-10-05 19:57 | XMS_ITS | Encounter Summary ---
Author Organization [facility] Address [address] [place] [address] Care Team Providers Care Rodding Anode Worker Name Role Phone Jhonathan Kim MD Primary Care Provider Encounter Details Date Type Department Care Team (Late st Contact Info) Description 10/03/1998 Outpatient Historical [facility] Internal Medicine [place] [address] [place] [address] Jhonathan Rendon MD [address] [place] [address] Social History Tobacco Use Types Packs/Day Years Used Date Smoking Tobacco: Never Assessed Comments Unknown Sex and Gender Information Value Date Recorded Sex Assigned at Not on file Legal Sex Female 3:30 AM WINDOW/DISTRIBUTION CLERK Gender Identity Not on file Sexual Orientation Not on file documented as of this encounter Plan of Treatment Not on file documented as of this encounter Visit Diagnoses Not on filedocumented in this encounter Additional Health Concerns Infection Onset Date Last Indicated Resolved Time R/O Respiratory 05/13/2024 05/13/2024 05/13/2024 3 :49 AM CDT documented as of this encounter Care Teams Rodding Anode Worker Relationship Specialty [place] [address] [place] [address] PCP - General Internal Medicine 02/18/17 07/02/24 documented as of this encounter
--- OUTSIDE RECORDS SUMMARY | 2024-10-05 19:57 | XMS_ITS | Encounter Summary ---
Author Organization [facility] Address [address] [place] [address] Care Team Providers Care Bin Tripper Operator Name Role Phone Jhonathan Kim MD Primary Care Provider Encounter Details Date Type Department Care Team (Late st Contact Info) Description 04/13/2006 Outpatient Historical [facility] Internal Medicine [place] [address] [place] [address] Jhonathan Rendon MD [address] [place] [address] Social History Tobacco Use Types Packs/Day Years Used Date Smoking Tobacco: Never Assessed Comments Unknown Sex and Gender Information Value Date Recorded Sex Assigned at Not on file Legal Sex Female 3:30 AM CONDENSER CLEANER Gender Identity Not on file Sexual Orientation Not on file documented as of this encounter Plan of Treatment Not on file documented as of this encounter Visit Diagnoses Not on filedocumented in this encounter Additional Health Concerns Infection Onset Date Last Indicated Resolved Time R/O Respiratory 05/13/2024 05/13/2024 05/13/2024 3 :49 AM CDT documented as of this encounter Care Teams Bin Tripper Operator Relationship Specialty [place] [address] [place] [address] PCP - General Internal Medicine 02/18/17 07/02/24 documented as of this encounter
--- OUTSIDE RECORDS SUMMARY | 2024-10-05 19:57 | XMS_ITS | Encounter Summary ---
Author Organization [facility] Address [address] [place] [address] Care Team Providers Care Jalousie Installer Name Role Phone Jhonathan Kim MD Primary Care Provider Encounter Details Date Type Department Care Team (Late st Contact Info) Description 06/06/2007 Outpatient Historical [facility] Internal Medicine [place] [address] [place] [address] Jhonathan Rendon MD [address] [place] [address] Social History Tobacco Use Types Packs/Day Years Used Date Smoking Tobacco: Never Assessed Comments No Sex and Gender Information Value Date Recorded Sex Assigned at Not on file Legal Sex Female 3:30 AM HAULPAK DRIVER Gender Identity Not on file Sexual Orientation Not on file documented as of this encounter Plan of Treatment Not on file documented as of this encounter Visit Diagnoses Not on filedocumented in this encounter Additional Health Concerns Infection Onset Date Last Indicated Resolved Time R/O Respiratory 05/13/2024 05/13/2024 05/13/2024 3 :49 AM CDT documented as of this encounter Care Teams Jalousie Installer Relationship Specialty [place] [address] [place] [address] PCP - General Internal Medicine 02/18/17 07/02/24 documented as of this encounter
--- OUTSIDE RECORDS SUMMARY | 2024-10-05 19:57 | XMS_ITS | Encounter Summary ---
Author Organization [facility] Address [address] [place] [address] Care Team Providers Care Telephone Repairer Name Role Phone Jhonathan Kim MD Primary Care Provider Encounter Details Date Type Department Care Team (Late st Contact Info) Description 04/25/2001 Outpatient Historical [facility] Internal Medicine [place] [address] [place] [address] Jhonathan Rendon MD [address] [place] [address] Social History Tobacco Use Types Packs/Day Years Used Date Smoking Tobacco: Never Assessed Comments Unknown Sex and Gender Information Value Date Recorded Sex Assigned at Not on file Legal Sex Female 3:30 AM PLYWOOD LAYUP LINE CORE LAYER Gender Identity Not on file Sexual Orientation Not on file documented as of this encounter Plan of Treatment Not on file documented as of this encounter Visit Diagnoses Not on filedocumented in this encounter Additional Health Concerns Infection Onset Date Last Indicated Resolved Time R/O Respiratory 05/13/2024 05/13/2024 05/13/2024 3 :49 AM CDT documented as of this encounter Care Teams Telephone Repairer Relationship Specialty [place] [address] [place] [address] PCP - General Internal Medicine 02/18/17 07/02/24 documented as of this encounter
--- OUTSIDE RECORDS SUMMARY | 2024-10-05 19:57 | XMS_ITS | Encounter Summary ---
Author Organization [facility] Address [address] [place] [address] Care Team Providers Care International Editorial Producer Name Role Phone Jhonathan Kim MD Primary Care Provider Encounter Details Date Type Department Care Team (Late st Contact Info) Description 01/11/2001 Outpatient Historical [facility] Internal Medicine [place] [address] [address] Jhonathan Rendon MD [address] [place] [address] Social History Tobacco Use Types Packs/Day Years Used Date Smoking Tobacco: Never Assessed Comments Unknown Sex and Gender Information Value Date Recorded Sex Assigned at Not on file Legal Sex Female 3:30 AM HOTBED TRANSFER OPERATOR Gender Identity Not on file Sexual Orientation Not on file documented as of this encounter Plan of Treatment Not on file documented as of this encounter Visit Diagnoses Not on filedocumented in this encounter Additional Health Concerns Infection Onset Date Last Indicated Resolved Time R/O Respiratory 05/13/2024 05/13/2024 05/13/2024 3 :49 AM CDT documented as of this encounter Care Teams International Editorial Producer Relationship Specialty [place] [address] [place] [address] PCP - General Internal Medicine 02/18/17 07/02/24 documented as of this encounter
--- OUTSIDE RECORDS SUMMARY | 2024-10-05 19:57 | XMS_ITS | Encounter Summary ---
Author Organization [facility] Address [address] [place] [address] Care Team Providers Care Trim Mounter Name Role Phone Jhonathan Kim MD Primary Care Provider Encounter Details Date Type Department Care Team (Late st Contact Info) Description 10/31/2006 Outpatient Historical [facility] Internal Medicine [place] [address] [place] [address] Jhonathan Rendon MD [address] [place] [address] Social History Tobacco Use Types Packs/Day Years Used Date Smoking Tobacco: Never Assessed Comments Unknown Sex and Gender Information Value Date Recorded Sex Assigned at Not on file Legal Sex Female 3:30 AM 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
--- OUTSIDE RECORDS SUMMARY | 2024-10-05 19:57 | XMS_ITS | Encounter Summary ---
Author Organization [facility] Address [address] [place] [address] Care Team Providers Care Stone Gang Sawyer Name Role Phone Jhonathan Kim MD Primary Care Provider Encounter Details Date Type Department Care Team (Late st Contact Info) Description 01/03/2002 Outpatient Historical [facility] Sarahy Hernandez MD [address] 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 LEAD PROGRAMMER Gender Identity Not on file Sexual Orientation Not on file documented as of this encounter Plan of Treatment Not on file documented as of this encounter Visit Diagnoses Diagnosis Esophageal reflux- Primary documented in this encounter Additional Health Concerns Infection Onset Date Last Indicated Resolved Time R/O Respiratory 05/13/2024 05/13/2024 05/13/2024 3 :49 AM CDT documented as of this encounter Care Teams Stone Gang Sawyer Relationship Specialty [place] [address] [place] [address] PCP - General Internal Medicine 02/18/17 07/02/24 documented as of this encounter
--- OUTSIDE RECORDS SUMMARY | 2024-10-05 19:58 | XMS_ITS | Encounter Summary ---
Author Organization [facility] Address [address] [place] [address] Care Team Providers Care Basket Person Name Role Phone Unavailable Primary Care Provider [...] on file Legal Sex Female 3:30 AM FINAL COAT SPRAYER Gender Identity Not on file Sexual [...]
--- OUTSIDE RECORDS SUMMARY | 2024-10-05 19:58 | XMS_ITS | Encounter Summary ---
Author Organization [facility] Address [address] [place] [address] Care Team Providers Care Sock Mender Name Role Phone Jhonathan Kim MD Primary Care Provider Encounter Details Date Type Department Care Team (Late st Contact Info) Description 05/12/2006 [facility]patient [facility] [address] [place] [phone] Noah Santos MD [address] [place] [phone] Social History Tobacco Use Types Packs/Day Years Used Date Smoking Tobacco: Never Assessed Comments Unknown Sex and Gender Information Value Date Recorded Sex Assigned at Not on file Legal Sex Female 3:30 AM 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
--- OUTSIDE RECORDS SUMMARY | 2024-10-05 19:58 | XMS_ITS | Encounter Summary ---
Author Organization [facility] Address [address] [place] [address] Care Team Providers Care Booster Station Operator Name Role Phone Jhonathan Kim MD Primary Care Provider Encounter Details Date Type Department Care Team (Latest Contact Info) Description 04/22/2006 Outpatient [facility] [address] [place] [address] Jhonathan Rendon MD [address] [place] [address] Unspecified Venous (Peripheral) Insufficiency (Primary Dx) Social History Tobacco Use Types Packs/Day Years Used Date Smoking Tobacco: Never Assessed Comments Unknown Sex and Gender Information Value Date Recorded Sex Assigned at Not on file Legal Sex Female 3:[address]PERATOR [address] SUPERVISOR Gender Identity Not on file Sexual [...] documented as of this encounter Care Teams Booster Station Operator Relationship Specialty [place] [address] [place] [phone] PCP - General Internal Medicine 02/18/17 07/02/24 documented as of this encounter
--- OUTSIDE RECORDS SUMMARY | 2024-10-05 19:58 | XMS_ITS | Encounter Summary ---
Author Organization [facility] Address [address] [place] [address] Care Team Providers Care Shoe Turner Name Role Phone Jhonathan Kim MD Primary Care Provider Encounter Details Date Type Department Care Team (Latest Contact Info) Description 04/28/2006 Outpatient [facility] - [facility] [address] [place] [address] Jhonathan Rendon MD [address] [place] [address] Unspecified Venous (Peripheral) Insufficiency (Primary Dx) Social History Tobacco Use Types Packs/Day Years Used Date Smoking Tobacco: Never Assessed Comments Unknown Sex and Gender Information Value Date Recorded Sex Assigned at Not on file Legal Sex Female 3:30 AM PUBLIC HEALTH POLICY ANALYST Gender Identity Not on file Sexual Orientation [...] documented as of this encounter Care Teams Shoe Turner Relationship Specialty [place] [address] [place] [phone] PCP - General Internal Medicine 02/18/17 07/02/24 documented as of this encounter
--- OUTSIDE RECORDS SUMMARY | 2024-10-05 19:58 | XMS_ITS | Encounter Summary ---
Author Organization [facility] Address [address] [place] [address] Care Team Providers Care Control Board Operator Name Role Phone Jhonathan Kim MD Primary Care Provider Encounter Details Date Type Department Care Team (Late st Contact Info) Description 04/22/2006 Outpatient [facility] [address] [place] [address] Hai Matos MD [address] [place] [address] Social History Tobacco Use Types Packs/Day Years Used Date Smoking Tobacco: Never Assessed Comments Unknown Sex and Gender Information Value Date Recorded Sex Assigned at Not on file Legal Sex Female 3:30 AM MANAGER ER Gender Identity Not on file Sexual Orientation Not on file documented as of this encounter Plan of Treatment Not on file documented as of this encounter Visit Diagnoses Not on filedocumented in this encounter Additional Health Concerns Infection Onset Date Last Indicated Resolved Time R/O Respiratory 05/13/2024 05/13/2024 05/13/2024 3 :49 AM CDT documented as of this encounter Care Teams Control Board Operator Relationship Specialty [place] [address] [place] [phone] PCP - General Internal Medicine 02/18/17 07/02/24 documented as of this encounter
--- OUTSIDE RECORDS SUMMARY | 2024-10-05 19:58 | XMS_ITS | Encounter Summary ---
Author Organization [facility] Address [address] [place] [address] Care Team Providers Care Neon Glass Blower Name Role Phone Jhonathan Kim MD Primary Care Provider Reason for Visit * Reason Onset Date Comments Kidney Stone 06/02/2023 Spoke W/ Erin [email or web address] @ Dr. 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
--- OUTSIDE RECORDS SUMMARY | 2024-10-05 19:58 | XMS_ITS | Clinical Summary ---
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 Major depressive disorder, r ecurrent episode, [...] Description 10/05/2024 12:45 PM CDT Hospital Encounter [facility] [address] [place] [address] Keturah Reynoso MD Arrived 10/03/2024 External Device Data ST[facility] ABSTRACTION Provider, Abstract 10/02/2024 External Device Data ST[place] ABSTRACTION Provider, Abstract from Last 3 Months Immunizations Immunization Administration Dates Next Due (ADACEL/BOOSTRIX)(10 YR UP) TDAP VACCINE, 0.5ML, IM 04/13/2006 (PFIZER)(12 YR UP) COVID-19 VACCINE - EMERGENCY USE AUTHORIZATION, MRNA, [id number](PF) 30 MCG/0.3 ML IM SUSP 05/28/2021,10/29/2020,10/08/2020 (PNEUMOVAX [...] on file Legal Sex Female 3:30 AM AGRICULTURAL SERVICE TECHNICIAN Gender Identity Not on file Sexual Orientation Not on file Occupation Industry Job Start Date Job End Date Not on file Not on file Not on file Not on file Last Filed Vital Signs Vital Sign Reading Time Taken Comments Blood Pressure 162/72 06/06/2024 4:52 PM AGRICULTURAL SERVICE TECHNICIAN Pulse 69 06/06/2024 4:52 PM AGRICULTURAL SERVICE TECHNICIAN Temperature 36.7 C (98.1 F) 06/06/2024 4:09 PM AGRICULTURAL SERVICE TECHNICIAN Respiratory Rate 18 06/06/2024 4:52 PM AGRICULTURAL SERVICE TECHNICIAN Oxygen Saturation 100% 06/06/2024 4:52 PM AGRICULTURAL SERVICE TECHNICIAN Inhaled Oxygen Concentration - - Weight 80.4 kg (177 lb 3.2 oz) 06/06/2024 1:27 P M AGRICULTURAL SERVICE TECHNICIAN Height 170.2 cm (5' 7 ) 06/06/2024 1:27 PM AGRICULTURAL SERVICE TECHNICIAN Body Mass Index 27.75 06/06/2024 1:27 PM AGRICULTURAL SERVICE TECHNICIAN Plan of Treatment Health Maintenance Due Date [...] years Discontinued Medical Devices Implanted Type Area Armed Security Officer Device Identifier Shelf Expiration Date Model / Serial / Lot Stent Tria Soft 6fr 26cm W/ Side Hl [id number] - [id number] Implanted:Qty : 1 on 07/13/2023 by Keturah Reynoso MD at [facility] Stent Right: Ureter [employer]Y/RADIOLOGY TRANSPORTER 03/29/2026 [id number] 30 / / [id number] Description:CHECKED BY LG Stent Tria Soft 6fr 26cm W/ Side [id number] - [id number] Implanted:Qty : 1 on 05/14/2024 by Keturah Reynoso MD at [facility] Stent Left: Ureter [employer] UROLOGY/RADIOLOGY TRANSPORTER [id number] 02/28/2027 [id number] 30 / / [id number] Stent Tria Soft 6fr 26cm W/ Side [id number] - [id number] Implanted:Qty : 1 on 06/06/2024 by Keturah Reynoso MD at [facility] Stent Left: Ureter [employer]Y/RADIOLOGY TRANSPORTER 03/21/2027 [id number] 30 / [id number] / Explanted Type Area Armed Security Officer Device Identifier Shelf Expiration Date Model / Serial / Lot Stent Tria Soft 6fr 26cm W/ Side [id number] - [id number] Implanted:Qty: 1 on 06/02/2023 by Keturah Reynoso MD at [facility] Explanted:Qty: 1 on 07/13/2023 by Keturah Reynoso MD at [facility] Stent Right: Ureter [employer]/RADIOLOGY TRANSPORTER 03/15/2026 [id number] 0 / / [id number] Description:CHECKED BY LG Procedures Procedure Name Priority Date/Time Associated Diagnosis Comments US RENAL AND BLADDER Routine 10/05/2024 1:40 PM CDT Kidney stone LIPID PANEL Stat 05/13/2024 1:24 AM CDT HEMOGLOBIN A1C Stat 05/12/2024 8:25 PM CDT MICROALBUMIN/CREATIN INE RATIO, RANDOM UR Routine 10/01/2022 2:54 PM AGRICULTURAL SERVICE TECHNICIAN HM DIABETES EYE EXAM Routine 09/09/2021 XR DEXA BONE DENSITY AXIAL 1 OR MORE SITES Routine 06/08/2011 10:07 AM AGRICULTURAL SERVICE TECHNICIAN Hyperparathyroidism from Last 3 Months or Most Recently Relevant to Health Maintenance Results * US RENAL AND BLADDER (10/05/2024 1:40 PM CDT) Anatomical Region Laterality Modality Abdomen Ultrasound 10/05/2024 1:41 PM CDT Impressions 10/05/2024 3:11 PM CDT IMPRESSION: Left renal hydronephrosis with a stent in the ureteropelvic junction Right nephrolithiasis DICTATION LOCATION: Location 7 - [facility] Narrative 10/05/2024 3:11 PM CDT ULTRASOUND [...] ureteropelvic junction Right nephrolithiasis DICTATION LOCATION: Location [address] [place] [address] us Keturah Reynoso MD US ORDERABLES Final Res ult * (ABNORMAL) LIPID PANEL (05/13/2024 1:24 AM CDT) Pathologist [facility] CHOLESTEROL 172 <200 mg/dL 05/13/2024 4:00 AM T [facility] TRIGLYCERIDE 126 <150 mg/dL 05/13/2024 4:00 AM CDT [facility] HDL 47 40 - 59 mg/dL 05/13/2024 4:00 AM T [facility] LDL CALCULATED 100(H) <100 mg/dL 05/13/2024 4:00 AM T [facility] NON-HDL CHOLESTEROL 125 <130 mg/dL 05/13/2024 4:00 AM T [facility] Blood Venipuncture / Unknown 05/13/2024 1:24 AM CDT 05/13/2024 1:27 AM CDT [facility] - 05/13/2024 4:00 AM CDT TOTAL [...] Ibrahim DO CHEMISTRY ORDERABLE S Final Result [facility] [id number] [address] [place] [address] * (ABNORMAL) HEMOGLOBIN A1C (05/12/2024 8:25 PM CDT) HEMOGLOBIN A1C 6.4(H) <=5.6 % 05/13/2024 1:30 AM CDT [facility] [employer] [facility] EST. AVG GLUCOSE, A1C 137 mg/dL 05/13/2024 1:30 AM CDT [facility] [employer] [facility] Blood Venipuncture / Unknown 05/12/2024 8:25 PM CDT 05/12/2024 8:28 PM CDT Narrative [facility] [employer] [facility] - 05/13/2024 1:30 AM CDT HGB A1C INTERPRETATION NORMAL: <5.7% PRE-DIABETES: 5.7 - 6.4% DIABETES: 6.5% OR GREATER Barber Ibrahim DO CHEMISTRY ORDERABLE S Final Result Performing Organization Address City/[facility]/ZIP Co de Phone Number [facility] [employer] [facility]# [id number] [address] [place] [address] * MICROALBUMIN/CREATININE RATIO, RANDOM UR (10/01/2022 2:54 PM AGRICULTURAL SERVICE TECHNICIAN) Creatinine, Urine 100 20 - 275 mg/dL [...] within a diagnostic category. Test Performed at: [facility] [address] [address] [place] [address] Mohinder Yeh MD 10/01/2022 2:54 PM AGRICULTURAL SERVICE TECHNICIAN 10/01/2022 2:54 PM AGRICULTURAL SERVICE TECHNICIAN us Jhonathan Kim MD URINE ORDERABLES Final Result [facility] [phone] [address] * DIABETES EYE EXAM (09/09/2021) us Omar Laura MD HEALTH MAINTENANCE Edit ed Result - Final Performing Organization Address City/[facility]/ZIP Co de Phone Number [facility]# [id number] [address] [place] [address] * XR DEXA BONE DENSITY AXIAL 1 OR MORE SITES (06/08/2011 10:07 AM AGRICULTURAL SERVICE TECHNICIAN) Anatomical Region Laterality Modality Digital Radiogra phy 06/08/2011 9:49 AM AGRICULTURAL SERVICE TECHNICIAN Narrative 06/08/2011 10:35 AM AGRICULTURAL SERVICE TECHNICIAN XR DEXA BONE DENSITY AXIAL 1 OR MORE SITES HISTORY: 66 yo F with postmenopausal symptoms with a history of hyperparathyroidism needing evaluation for osteoporosis. PROCEDURE: Using a [employer] dual energy x-ray absorptiometry system, the patient's [...] needing evaluation for osteoporosis. PROCEDURE: Using a [employer] dual energy x-ray absorptiometry system, the patient's [...] B [employer] [place] [address] [place] [address] MEDICARE [facility] MEDICARE [facility] [address] [place] [id number] RX [employer] RX Member Subscriber Plan / Payer (Ef fective 2014-Present) Name:Emilie Finn Relation to Subscriber:Self Name:Emilie Finn Payer ID:Not on file Group ID:[id number] Type:RX Medicare Part D Address: [address]RIE [place] RX PARR PLANS (INTERNAL) [place] Internal Plans Advance Directives For more information, please contact: [phone] Documents on File Type Date Recorded Patient Warehouse Person Expl anation Advance Directive POA 05/17/2024 10:00 [...]
--- OUTSIDE RECORDS SUMMARY | 2024-10-05 19:58 | XMS_ITS | Encounter Summary ---
Author Organization [facility] Address [address] [place] [address] Care Team Providers Care Ranch Manager Name Role Phone Jhonathan Kim MD Primary Care Provider Reason for Visit * Reason Onset Date Comments Care Home (Skilled/Rehab) 05/25/2024 Encounter Details Date Type Department Care Team (Late st Contact Info) Description 05/25/2024 Telephone [facility] [address] [facility] [address] [place] [address] [place] [address] [facility] [address] [place] [address] Care Home (Skilled/Rehab) Social History Tobacco Use Types Packs/Day [...] on file Legal Sex Female 3:30 AM HEALTH EDUCATOR Gender Identity Not on file Sexual Orientation Not on file Occupation Industry Job Start Date Job End Date Not on file Not on file Not on file Not on file documented as of this encounter Miscellaneous Notes * Telephone Encounter - Giselle Montero - 05/25/2024 10:32 AM CDT Patient was in the hospital and is now in fdc. The nursing facility called and wanted to [...] documented as of this encounter Care Teams Ranch Manager Relationship Specialty [place] [address] [place] [address] PCP - General Internal Medicine 02/18/17 07/02/24 documented as of this encounter
--- OUTSIDE RECORDS SUMMARY | 2024-10-05 19:58 | XMS_ITS | Encounter Summary ---
Author Organization [facility] Address [address] [place] [address] Care Team Providers Care Paper Bags Sewing Machine Operator Name Role Phone Jhonathan Kim MD Primary Care Provider Reason for Visit * Reason Onset Date Comments Upper Gi Bleeding 01/04/2024 Spoke joe/Francisca @ Dr. Corona's exchange Encounter Details Date Type Department Care Team (Late st Contact Info) Description 01/04/2024 Telephone [facility] Emergency [address] [place] [address] [place] [address] [place] [address] Upper Gi Bleeding (Spoke joe/Francisca [...] on file Legal Sex Female 3:30 AM GAS SCRUBBER OPERATOR Gender Identity Not on file Sexual [...] documented as of this encounter Care Teams Paper Bags Sewing Machine Operator Relationship Specialty [place] [address] [place] [address] PCP - General Internal Medicine 02/18/17 07/02/24 documented as of this encounter
--- OUTSIDE RECORDS SUMMARY | 2024-10-05 19:58 | XMS_ITS | Encounter Summary ---
Author Organization [facility] Address [address] [place] [address] Care Team Providers Care Hydrometer Calibrator Name Role Phone Jhonathan Kim MD Primary Care Provider Encounter Details Date Type Department Care Team (Latest Contact Info) Description 05/12/2006 Outpatient [facility] - [facility] [address] [place] [address] Jhonathan Rendon MD [address] [place] [address] Unspecified Venous (Peripheral) Insufficiency (Primary Dx) Social History Tobacco Use Types Packs/Day Years Used Date Smoking Tobacco: Never Assessed Comments Unknown Sex and Gender Information Value Date Recorded Sex Assigned at Not on file Legal Sex Female 3:30 AM RECEP Gender Identity Not on file Sexual Orientation [...] documented as of this encounter Care Teams Hydrometer Calibrator Relationship Specialty [place] [address] [place] [phone] PCP - General Internal Medicine 02/18/17 07/02/24 documented as of this encounter
--- OUTSIDE RECORDS SUMMARY | 2024-10-05 19:58 | XMS_ITS | Encounter Summary ---
Author Organization [facility] Address [address] [place] [address] Care Team Providers Care Valuation Consultant Name Role Phone Jhonathan Kim MD Primary Care Provider Encounter Details Date Type Department Care Team (Latest Contact Info) Description 04/25/2006 Outpatient Historical [facility] Jhonathan Rendon MD [address] [place] [address] Ulcer of Lower Limb, Unspecified (CMS/HCC) (Primary Dx) Social History Tobacco Use Types Packs/Day Years Used Date Smoking Tobacco: Never Assessed Comments Unknown Sex and Gender Information Value Date Recorded Sex Assigned at Not on file Legal Sex Female 3:30 AM LINE PERSON Gender Identity Not on file Sexual Orientation [...] documented as of this encounter Care Teams Valuation Consultant Relationship Specialty [place] [address] [place] [phone] PCP - General Internal Medicine 02/18/17 07/02/24 documented as of this encounter
--- OUTSIDE RECORDS SUMMARY | 2024-10-05 19:58 | XMS_ITS | Encounter Summary ---
Author Organization [facility] Address [address] [place] [address] Care Team Providers Care Reinforcing Steel Placer Name Role Phone Jhonathan Kim MD Primary Care Provider Encounter Details Date Type Department Care Team (Late st Contact Info) Description 05/26/2006 Outpatient [facility] Hyperbaric and Wound Treatment [facility] - [facility] [address] [place] [phone] Noah Santos MD [address] [place] [phone] Social History Tobacco Use Types Packs/Day Years Used Date Smoking Tobacco: Never Assessed Comments Unknown Sex and Gender Information Value Date Recorded Sex Assigned at Not on file Legal Sex Female 3:30 AM CARD SCRAPER Gender Identity Not on file Sexual Orientation Not on file documented as of this encounter Plan of Treatment Not on file documented as of this encounter Visit Diagnoses Not on filedocumented in this encounter Additional Health Concerns Infection Onset Date Last Indicated Resolved Time R/O Respiratory 05/13/2024 05/13/2024 05/13/2024 3 :49 AM CDT documented as of this encounter Care Teams Reinforcing Steel Placer Relationship Specialty [place] [address] [place] [address] PCP - General Internal Medicine 02/18/17 07/02/24 documented as of this encounter
--- OUTSIDE RECORDS SUMMARY | 2024-10-05 19:58 | XMS_ITS | Encounter Summary ---
Author Organization [facility] Address [address] [place] [address] Care Team Providers Care All Around Presser Name Role Phone Unavailable Primary Care Provider Unavailabl e Reason for Referral * Radiology Services (Routine) - Closed Specialty Diagnoses / Procedures Referred By Contac t Referred To Contact Radiology Diagnoses Kidney stone Procedures US [place]NAL [place] [address] [address] Phone: tel: fax: [facility] [address] [place] [address] Phone: tel: fax: Referral ID Status Reason Start Date Expiration Date Visits Re quested Visits Authorized [id number] Closed 06/27/2024 07/28/2025 1 1 Reason for Visit * Radiology Services (Routine) - Closed Specialty Diagnoses / Procedures Referred By Contac t Referred To Contact Radiology Diagnoses Kidney stone Procedures US [place]NAL [place] [address] [address] Phone: tel: fax: [address] [address] Phone: tel: fax: Referral ID Status Reason Start Date Expiration Date Visits Re quested Visits Authorized [id number] Closed 06/27/2024 07/28/2025 1 1 Encounter Details Date Type Department Care Team (Late st Contact Info) Description 10/05/2024 12:45 PM CDT Hospital Encounter [facility] [address] [place] [address] [place] [address] [facility] [address] [place] [address] Arrived Social History Tobacco Use [...] on file Legal Sex Female 3:30 AM BOY'S ADVISER Gender Identity Not on file Sexual Orientation [...] junction Right nephrolithiasis DICTATION LOCATION: Location 7 [facility] Narrative 10/05/2024 3:11 PM CDT ULTRASOUND [...] the ureteropelvic junction Right nephrolithiasis DICTATION LOCATION: [address] us Keturah Reynoso MD US ORDERABLES Final Res ult documented in this encounter Visit Diagnoses Diagnosis Kidney stone Calculus of kidney documented in this encounter Additional Health Concerns Assessment Noted Time PHQ-9 Depression Total Score: 2 04/25/20 24 11:43 AM CDT documented as of this encounter
--- OUTSIDE RECORDS SUMMARY | 2024-10-05 19:58 | XMS_ITS | Encounter Summary ---
Author Organization [facility] Address [address] [place] [address] Care Team Providers Care Inside Sales Territory Manager Name Role Phone Jhonathan Kim MD Primary Care Provider Encounter Details Date Type Department Care Team (Late st Contact Info) Description 04/28/2006 Outpatient [facility] - [facility] [address] [place] [phone] Noah Santos MD [address] [place] [phone] Social History Tobacco Use Types Packs/Day Years Used Date Smoking Tobacco: Never Assessed Comments Unknown Sex and Gender Information Value Date Recorded Sex Assigned at Not on file 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
--- OUTSIDE RECORDS SUMMARY | 2024-10-05 19:58 | XMS_ITS | Encounter Summary ---
Author Organization [facility] Address [address] [place] [address] Care Team Providers Care Firmware Test Engineer Name Role Phone Jhonathan Kim MD Primary Care Provider Encounter Details Date Type Department Care Team (Late st Contact Info) Description 05/26/2006 Outpatient [facility] Hyper[facility] and Wound Treatment [facility] - [facility] [address] [place] [address] [place] [address] [place] [address] Social History Tobacco Use Types Packs/Day Years Used Date Smoking Tobacco: Never Assessed Comments Unknown Sex and Gender Information Value Date Recorded Sex Assigned at Not on file 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 [place] [address] PCP - General Internal Medicine 02/18/17 07/02/24 documented as of this encounter
--- OUTSIDE RECORDS SUMMARY | 2024-10-05 19:58 | XMS_ITS | Encounter Summary ---
Author Organization [facility] Address 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
== END 2024-10-05 19:58 | disposition left against medical advice (07) ==
LOC: ANHED 19:55
PROVIDERS: PCP Family Medicine
DX: R00.8 Other abnormalities of heart beat (principal)
CPT/HCPCS: 99199